=== PATIENT | female | born 1945 | race Caucasian/White ===

== ENCOUNTER 2019-07-20 13:34 | Outpatient (RCR) | payer MEDICARE, SELFPAY | END 2019-08-14 00:01 | LOC: WOUND 13:34 | PROVIDERS: Family Provider Electrodiagnostic Medicine; Visit Provider Surgery | DX: I73.9 Peripheral vascular disease, unspecified (principal); L97.512 Non-pressure chronic ulcer of other part of right foot with fat layer exposed; M79.671 Pain in right foot | CPT/HCPCS: 11044; 73720; A9579 ==

== ENCOUNTER → 2019-09-12 16:40 | Outpatient (BNVA) | payer MEDICARE, SELFPAY | PROVIDERS: Family Provider Electrodiagnostic Medicine; PCP Electrodiagnostic Medicine; Visit Provider Specialist | DX: Z01.818 Encounter for other preprocedural examination (principal); M17.0 Bilateral primary osteoarthritis of knee | CPT/HCPCS: 81003; 87641 ==

== ENCOUNTER 2019-09-18 12:59 | Observation (INO) | payer MEDICARE, SELFPAY ==
[2019-09-13 08:28] VITALS: BMI 26.4
--- NOTE | 2019-09-13 08:42 | ECG_ITS ---
Measurements Intervals [place] Rate: 64 P: 47 FL: 137 QRS: 42 QRSD: 78 T: 57 QT: 402 QTc: 418 SINUS RHYTHM SEPTAL MYOCARDIAL INFARCTION [40+ ms Q WAVE IN V1/V2], OF INDETERMINATE AGE No previous ECG available for comparison Electronically Signed On 09-13-2019 11:37:57 METEOROLOGICAL EQUIPMENT REPAIRER by Kunal Oh M.D. [id number]
[2019-09-13 09:34] LABS: Basophils % 0.3 %; Eosinophils # 0.3 10^3/uL (0.0-0.8); Eosinophils % 3.5 %; Hematocrit 47.2 % (37.0-47.0); Hemoglobin 14.3 g/dL (11.5-15.3); Lymphocytes # 2.1 10^3/uL (0.8-4.8); Lymphocytes % 29.9 %; Mean Corpuscular HGB Conc 30.3 g/dL (30.0-36.0); Mean Corpuscular Hemoglobin 27.4 pg (28.0-34.0); Mean Corpuscular Volume 90.4 fL (81-99); Mean Platelet Volume 10.4 fL (7.4-10.4); Monocytes # 0.5 10^3/uL (0.2-0.9); Monocytes % 7.4 %; Neutrophils # 4.2 10^3/uL (1.8-7.7); Neutrophils % 58.6 %; Nucleated Red Blood Cells % 0 %; Platelet Count 236 10^3/cmm (130-400); Red Blood Count 5.22 10^6/uL (4.1-5.3); White Blood Count 7.1 10^3/uL (4.0-10.0)
--- NOTE | 2019-09-13 09:35 | ANES.PREANES ---
Pre-Anesthetic Assessment Pre-Anesthetic Assessment: Height/Weight: Height 1.7 m Weight 76.657 kg Preop Diagnosis: Severe degenerative osteoarthritis left knee Proposed Procedure: Operation Date: 09/18/19 09:50 Proposed Procedures p Total Knee Arthroplasty 82704 M17.0(Left) - Adelia Breaux MD Social: Social History: No alcohol and No tobacco Exam: Pre-Anes Outpt Exam: alert, oriented x 3, clear to auscultation bilaterally and regular rate & rhythm Airway: Submandibular: WNL Cervical ROM: WNL MP: 2 Dentition: Other (teeth ok) History/ROS: No significant history except as noted Pulmonary: Pulmonary: None reported CV/HEM: CV/HEM: HTN, Murmur and PVD : : None reported Hepatic: Hepatic: None reported GI: GI: GERD (controlled) Metabolic: Metabolic: Hyperlipidemia and Thyroid Musc/skel: Musc/skel: OA/DJD Neuropsych: Neuropsych: None reported Anesthetic Plan: ASA status: III Anesthesia: Anesthesia Evaluation, General and Regional (specify below) (left adductor canal) Risk of > 500 ml blood loss (7ml/kg in children): No PFSH Anesthesia PFSH: Medical History Critical ischemia of foot (Acute) GERD (gastroesophageal reflux disease) (Acute) Hammertoe of right foot (Acute) History of peripheral arterial disease (Acute) Hypertension (Acute) Hyperthyroidism (Acute) Guadarrama's neuroma of right foot (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 (Acute) Osteoarthritis of foot, right (Acute) Primary osteoarthritis of right knee (Acute) PVD (peripheral vascular disease) (Acute) Right foot pain (Acute) Right knee DJD (Acute) Status post angiography of extremity (Acute) Data Anesthesia CBC & Chem 7: 09/13/19 09:20 Other Labs: Laboratory Results - last 48 hr 09/13/19 09:20 WBC 7.1 RBC 5.22 Hgb 14.3 Hct 47.2 H MCV 90.4 MCH 27.4 L MCHC 30.3 RDW 14.0 Plt Count 236 MPV 10.4 Neut % (Auto) 58.6 Lymph % (Auto) 29.9 Craig % (Auto) 7.4 Eos % (Auto) 3.5 Baso % (Auto) 0.3 Neut # (Auto) 4.2 Lymph # (Auto) 2.1 Craig # (Auto) 0.5 Eos # (Auto) 0.3 Baso # (Auto) 0.0 Nucleated RBC % (auto) 0 Nucleated RBCs # 0.0 Cardiac Studies: No Data to Display
--- NOTE | 2019-09-13 09:47 | XR_ITS ---
WS: [id number] Chest 2 views, 09/13/2019 Clinical Data: surgery Comparison: None. Findings: No nodules, masses or effusions are seen. The heart is normal. The pulmonary vascularity is not increased. No pneumonia or pneumothorax is seen. The aortic arch and descending aorta minimally tortuous. XR/XR chest 2V* 70592 Impression: Atherosclerosis. .
[2019-09-13 09:50] LABS: Anion Gap 16.2 (5-19); Blood Urea Nitrogen 18 mg/dL (8-23); Calcium 9.9 mg/dL (8.5-10.5); Carbon Dioxide 27 mmol/L (22-29); Chloride 99 mmol/L (98-107); Glucose 117 mg/dL (74-106); Osmolality Calculated 284 mOsm/kg (285-295); Potassium 4.2 mmol/L (3.5-5.1); Sodium 138 mmol/L (136-145)
[2019-09-18] VITALS (26 sets, daily range): BP systolic 119–227; BP diastolic 76–123; PULSE 65–89; RESP 13–24; TEMP 36.3–36.8; O2SAT 93–100
--- NOTE | 2019-09-18 07:04 | P.HPUD_ITS ---
H&P update H&P Update: DATE OF SURGERY/PROCEDURE: 09/18/19 DATE H&P PERFORMED: H&P UPDATE INFORMATION: H&P completed within last 30 days, No changes to prior documentation and [place] [facility] [place] PREOP DIAGNOSIS: Severe Degenerative Osteoarthritis Left Knee PLANNED PROCEDURE: Operation Date: 09/18/19 08:55 Proposed Procedures Total Knee Arthroplasty 24131 M17.0(Left) - Adelia Breaux MD Full H&P Perinent History: Medical/Surgical History: Medical History (Updated 09/13/19 @ 09:37 by Jairo Trejo MD) Critical ischemia of foot (Acute) GERD (gastroesophageal reflux disease) (Acute) Hammertoe of right foot (Acute) History of peripheral arterial disease (Acute) Hypertension (Acute) Hyperthyroidism (Acute) Guadarrama's neuroma of right foot (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 (Acute) Osteoarthritis of foot, right (Acute) Primary osteoarthritis of right knee (Acute) PVD (peripheral vascular disease) (Acute) Right foot pain (Acute) Right knee DJD (Acute) Status post angiography of extremity (Acute)
[2019-09-18] MEDS: sodium chloride 0.9% 1,000 ML 30 ML IV ×2 (07:30→13:48)
[2019-09-18] MEDS: midazolam 1 mg/mL INJ 5 ML 2 MG IVP (08:03)
--- NOTE | 2019-09-18 08:12 | ANES.PROC ---
Anesthesia Procedures Procedure/Date: 09/18/19 Nerve Block ^: Nerve Block 1: Main Anesthesia: general anesthesia Time Out Performed: Yes Consent: requested by attending/covering physician, from patient, risks and benefits reviewed and patient agrees to proceed Nerve block location: adductor canal (Left) Anesthesia monitors applied: pulse oximetry and oxygen Nerve block position: supine Anesthetic Used: ropivicaine 0.5% (30 ml) and with decadron (4 mg) Ultrasound used to: recognize landmarks and visualize and ID femerol nerve Nerve Stimulator Used?: No Interscalene/Femoral BLK: 4 stimuplex 21 g needle used for position and inplane approach, visualize local anesthetic spread and no vascular puncture identified Injection: neg aspiration of heme Patient Tolerated Procedure: well and no complications Complications: none Additional Comments: chloroprep used to clean
--- NOTE | 2019-09-18 09:06 | PM.OP ---
Operative Report Date of procedure: September 18, 2019 Pre-op Diagnosis: Severe Degenerative Osteoarthritis Left Knee Post-op diagnosis: same Post-op Findings: Severe degenerative osteoarthritis left knee Procedure Done: Left total knee arthroplasty Implants: Triathlon total knee Arthroplasty system by [employer] with a size 4 left press fitted posterior stabilized femur, a size 4 Tritanium tibial component, press-fit, with a size 4 x 11 mm posterior stabilized triathlon X3 insert and a size asymmetric 32 x 10 mm Tritanium patella Specimens removed/disposition: Bone, disposed of Pathology: none sent Surgeon: Adelia Breaux Crotch Piece Baster: [facility] OR technicians Anesthesia: General (Intubated with preoperative adductor canal regional block) Estimated blood loss (mL): 10 Tourniquet time (min): 100 IV fluids (mL): 700 Urine output (mL): 250 Complications: None Findings: Severe degenerative osteoarthritis left knee with large osteophytes and cartilage loss Condition: stable Disposition: observation (After PACU recovery) Brief History: This 74-year-old woman presented with complaints of severe left knee pain which was interfering with her activities of daily living. After conservative measures which were ineffective, the patient wished to proceed with total knee arthroplasty. Risks and complications were discussed with her prior to her surgical intervention. She understood these and wished to proceed. Therefore, she was scheduled for the above procedure. Procedure: The patient was brought to the operating theater, and after undergoing adequate general intubated anesthesia with supplemental regional block, the left lower extremity was prepped with Dura-Prep and draped in usual fashion following placement of a tourniquet high on the leg. The leg was then draped free. Following prepping and draping, the leg was exsanguinated, and the tourniquet was elevated to 250 mmHg for a total tourniquet time of 100 minutes. Prior to elevation of the tourniquet, but following exposure of the site of surgery, a surgical pause was performed. At the time of the surgical pause, we confirmed the site and side of surgery. Additionally, we confirmed the appropriate and timely administration of preoperative antibiotics, Ancef 2 g and transexemic acid 1 g. The availability of equipment was confirmed, and the patient's identity was verbalized as well. Following the surgical pause, an incision was made centering over the patella continuing proximally and distally as necessary to allow access to the knee joint. Dissection continued through skin and soft tissues using a scalpel. Hemostasis was obtained using electrocautery. The skin incision was followed by a median parapatellar arthrotomy. The leg was extended and the patella was everted. Following this, the leg was returned to flexed position. The distal femur was exposed and a drill hole was made in this for placement of the distal femoral jig. The distal femoral jig was set at 5? of valgus. The distal femoral cutting block was then placed in appropriate position, and an fredo wing was used to confirm an appropriate amount of distal femur would be resected. The distal femoral resection was accomplished with 8 mm of bone being resected distally. After the distal femoral resection had been accomplished, the femur was measured and it measured a size 4. Medial lateral dimension also measured a size 4. A size 4 femoral cutting block was placed in position, and we were then able to accomplish the anterior, posterior and chamfer cuts. This jig was then removed and the notch guide was placed in position. With the notch guide in appropriate position, the notch was excised including resection of the anterior and posterior cruciate ligaments. This notch was to allow for the posterior stabilized femoral component. At this point, the femur was prepared and attention was directed to the proximal tibia. The posterior knee retractor was placed along with medial and lateral retractors. Further resection of the menisci was accomplished as we had better visualization. A complete meniscectomy was performed both medially and laterally with care being taken to protect the popliteus. Retractors were then placed so that the proximal tibia was well visualized. A drill hole was then made in the tibia for placement of the intramedullary guide. This guide was placed so that approximately 2 mm of bone would be resected from the deficient medial tibial plateau. The intramedullary guide was utilized supplemented with an extramedullary guide to assure appropriate alignment for the proximal tibial resection. The proximal tibial jig was then evaluated, pinned in position, and the proximal tibial resection was accomplished without difficulty. The jig was removed and the proximal tibia was measured. It measured a size 4. We then attempted a trial reduction with a size 4 and 9 mm insert. This was felt to be too tight, and it was tight in both flexion and extension. Therefore, 2 additional millimeters was resected from the proximal tibia. The proximal tibia continue to measure a size 4. Trial reduction was then once again accomplished with a size 4x9 mm insert followed by the size 4x11 mm posterior stabilized insert. The femoral component was placed in position for the trial reduction, and the knee was placed through range of motion. There was excellent stability with excellent varus-valgus alignment with appropriate patellar tracking. This was felt to be the appropriate size insert. There was full extension and flexion without lift off and the rotation of the tibia was marked. Alignment was checked from the hip to the ankle, and this was noted to be appropriate as well. Attention was then directed to the patella. The patella was measured with a caliper. We resected sufficient patella to leave approximately 14 mm of patella remaining. Measurements of the patella then indicated that a size asymmetric 32 mm x 10 mm was the appropriate patellar size. We then placed the jig to drill for the 3 pegs of the press-fit patella, and these drill holes were made without incident. A trial patella was then placed and the knee was placed through range of motion. The patella was noted to track nicely without evidence of subluxation. The femur was prepared for a press-fit femur by drilling 2 holes for the femoral pegs. All trial components were subsequently removed. The tibial tray was then pinned into position, and we broached the tibia for the stem of the tibial component. Subsequently, 4 drill holes were made for placement of the press-fit tibia. This was accomplished without difficulty. Care was taken to assure appropriate rotation of the tibia as well as appropriate position on the proximal tibia. The tibial tray was completely seated on the proximal tibia. Following broaching, the tibial guide was removed, and all surfaces were copiously irrigated. The surfaces were then dried and a bone plug was placed into the distal femur. Exparel was also injected at this point. The Tritanium tibia was impacted into position. The beaded femur was then impacted into position in a cementless fashion. The tibial insert was placed. The patella was pressed into position with a patellar clamp. The knee was irrigated with 20 mL of Betadine and 500 mL of normal saline, and this was allowed to remain in the knee for 3-4 minutes. The knee was then copiously irrigated and suctioned dry. Attention was then directed to closure. Closure was accomplished with 0 Vicryl in the fascial tissues, 2-0 Monocryl was used in the subcutaneous tissues, and the skin was closed with skin rosalba and Exofin. A sterile dressing was then placed consisting of Telfa, 4 x 4's, ABDs, sterile soft roll, and an Reji wrap. The patient was returned the Recovery Room in a satisfactory condition. X-rays were obtained there. The patient will be discharged to the floor for postoperative rehabilitation and pain management. She'll be under observation status with plans to discharge home with home health.
[2019-09-18] MEDS: ceFAZolin 1,000 mg SDV 1000 MG IRRIGATION ×2 (10:22→10:26)
[2019-09-18] MEDS: vancomycin 1,000 MG SDV 1000 MG XX (10:28)
--- NOTE | 2019-09-18 12:04 | XR_ITS ---
WS: [id number] KNEE LEFT TECHNIQUE: 2 views of the left knee CLINICAL INFORMATION: Status post left total knee arthroplasty COMPARISON: None. FINDINGS: Normal anatomic alignment. Left TKA. Surgical rosalba. Soft tissue edema with subcutaneous emphysema. Patellar prosthesis. Surgical rosalba. XR/XR knee LT 1-2V 99693 IMPRESSION: Normal postoperative changes left TKA.
[2019-09-18] MEDS: labetalol 5 mg/mL SDV 20mL IVP ×3 (12:12→13:10)
[2019-09-18] MEDS: morphine 4 mg/mL SDV 1 mL 2 MG IVP ×2 (12:20→12:25)
[2019-09-18] MEDS: fentaNYL 50 mcg/mL INJ 2mL IVP (12:39)
[2019-09-18] MEDS: CELEcoxib 200 mg Capsule PO (13:44)
[2019-09-18] MEDS: oxyCODONE-APAP 5-325 mg Tablet 1 TAB PO (13:44)
[2019-09-18] MEDS: chlorhexidine gluconate 0.12% Btl 473 mL 30 ML MUCOUS MEM ×3 (14:08→21:08)
--- NOTE | 2019-09-18 14:16 | SUR.PHASEI ---
1317 PT AWAKE ALERT STATES PAIN IS BETTER IN KNEE AND BACK, BP BETTER SEE INTERMITTENT BP MEDS GIVEN PT ALERT TALKATIVE TO NURSE ELSA IN ROOM BP 180/82, 68, 16, 100%
[2019-09-18] MEDS: TRAMadol 50 mg Tablet PO (16:04)
[2019-09-18] MEDS: acetaminophen 500 mg Tablet 1000 MG PO (16:06)
[2019-09-18] MEDS: pantoprazole DR 40 mg Tablet PO (16:06)
[2019-09-18] MEDS: calcium carbonate 500 mg Chew Tablet 1000 MG PO (17:12)
[2019-09-18] MEDS: calcium carbonate 500 mg Chew Tablet 200 MG PO (17:12)
[2019-09-18] MEDS: fluticasone nasal spray 16gm Btl 1 SPRAY INTRANASAL (17:15)
[2019-09-18] MEDS: sennosides-docusate Tablet 2 TAB PO (17:16)
[2019-09-18] MEDS: iron polysaccharide complex 150 mg Capsule PO (17:16)
[2019-09-19] VITALS (10 sets, daily range): BP systolic 128–175; BP diastolic 71–77; PULSE 61–83; RESP 16–20; TEMP 36.4–36.8; O2SAT 93–98
[2019-09-19] MEDS: CELEcoxib 200 mg Capsule PO ×2 (01:39→12:24)
[2019-09-19] MEDS: acetaminophen 500 mg Tablet 1000 MG PO ×2 (01:40→09:50)
[2019-09-19] MEDS: oxyCODONE-APAP 5-325 mg Tablet 1 TAB PO ×3 (01:43→12:29)
[2019-09-19 06:24] LABS: Hemoglobin 10.9 g/dL (11.5-15.3); Lymphocytes # 2.6 10^3/uL (0.8-4.8); Lymphocytes % 23.3 %; Mean Corpuscular HGB Conc 31.1 g/dL (30.0-36.0); Mean Corpuscular Hemoglobin 26.9 pg (28.0-34.0); Mean Corpuscular Volume 86.4 fL (81-99); Mean Platelet Volume 10.4 fL (7.4-10.4); Monocytes % 9.2 %; Neutrophils # 7.5 10^3/uL (1.8-7.7); Neutrophils % 67.2 %; Nucleated Red Blood Cells % 0 %; Platelet Count 207 10^3/cmm (130-400); Red Blood Count 4.05 10^6/uL (4.1-5.3); Red Cell Distribution Width 13.8 % (12.1-15.1); White Blood Count 11.1 10^3/uL (4.0-10.0)
[2019-09-19 06:34] LABS: Anion Gap 15.1 (5-19); Blood Urea Nitrogen 14 mg/dL (8-23); Calcium 9.6 mg/dL (8.5-10.5); Carbon Dioxide 23 mmol/L (22-29); Chloride 100 mmol/L (98-107); Glucose 122 mg/dL (65-115); Osmolality Calculated 276 mOsm/kg (285-295); Potassium 4.1 mmol/L (3.5-5.1); Sodium 134 mmol/L (136-145)
[2019-09-19] MEDS: iron polysaccharide complex 150 mg Capsule PO (07:31)
[2019-09-19] MEDS: aspirin 325 mg EC Tablet PO (09:54)
[2019-09-19] MEDS: multivitamin therapeutic Tablet 1 TAB PO (09:54)
[2019-09-19] MEDS: levothyroxine 150 mcg Tablet 75 MCG PO (09:54)
[2019-09-19] MEDS: pantoprazole DR 40 mg Tablet PO (09:54)
[2019-09-19] MEDS: cholecalciferol (vitamin D3) 1,000 unit Tablet 1000 UNIT PO (09:54)
[2019-09-19] MEDS: lisinopril 10 mg Tablet PO (09:54)
[2019-09-19] MEDS: sennosides-docusate Tablet 2 TAB PO (09:55)
[2019-09-19] MEDS: fluticasone nasal spray 16gm Btl 1 SPRAY INTRANASAL (10:26)
[2019-09-19] MEDS: chlorhexidine gluconate 0.12% Btl 473 mL 30 ML MUCOUS MEM ×2 (10:27→14:36)
[2019-09-19] MEDS: TRAMadol 50 mg Tablet PO ×2 (10:27→16:24)
[2019-09-19] MEDS: calcium carbonate 500 mg Chew Tablet 1000 MG PO (10:53)
--- NOTE | 2019-09-19 13:46 | PM.DCS ---
Discharge Providers Date of Admission: 09/18/19 12:59 Date of Discharge: Date of Discharge: September 19, 2019 Attending Provider at Admission: Adelia Breaux MD Attending Provider at Discharge: Adelia Breaux MD Primary Care Provider: Atilio Roldan DO Diagnoses at Discharge Discharge Diagnosis (1) History of total knee arthroplasty: Status: Acute Problem details: The patient underwent left total knee arthroplasty on September 18, 2019. She had an uneventful postoperative day. She was placed on observation overnight for pain management and rehabilitation. At the end of the first postoperative day, the patient was felt to be stable and safe for discharge to home. She therefore was discharged home with home health. She will follow-up with me in the office as scheduled. Qualifiers: Laterality: left Qualified Code(s): Z96.652 - Presence of left artificial knee joint (2) Primary osteoarthritis of left knee: Status: Acute Problem details: Left total knee arthroplasty on September 18, 2019. Reason for Visit Reason for Visit: Reason For Visit: Primary Osteoarthritis of alma knee Hospital Course Hospital Course: This 74-year-old woman underwent left total knee arthroplasty as a same-day admission yesterday. She was placed on the floor under observation postoperatively. She worked with physical therapy this morning, and her pain was under control. Her dressings were removed. Her wound was benign. There was no evidence of DVT. There was no evidence of infection. The patient was neurologically intact. There was minimal to no swelling. Therefore, the decision was made to discharge the patient home with home health. Discharge Summary: The patient is discharged home with home health. Physical Exam Const: COMMON NORMALS: no apparent distress, average body habitus, oriented x3 and alert GENERAL APPEARANCE: cooperative and comfortable ORIENTATION/CONSCIOUSNESS: Yes awake HENMT: COMMON NORMALS: normocephalic and head/scalp atraumatic HEAD & SCALP: normocephalic and atraumatic Eye: GENERAL EYE: normal appearance of both eyes Chest: COMMONS NORMALS: inspection of chest normal Resp: COMMON NORMALS: normal respiratory effort EFFORT & INSPECTION: Yes able to speak in complete sentences and Yes symmetric chest movement Extremity: LEFT LOWER EXTREMITY: Yes knee joint Left knee: Yes inspection (There is minimal to no swelling. There is no erythema. There is no evidence of infection.), Yes palpation (There is tenderness to palpation over the distal thigh and proximal calf as expected following total knee arthroplasty.), Yes ROM (The patient has been working on CPM with her range of motion.) and Yes neurovascular exam (Neurovascular status is intact.) Neuro: COMMON NORMALS: oriented x3 SENSORIUM/ORIENTATION: Yes alert Psych: COMMON NORMALS: mental status grossly normal APPEARANCE: Yes grossly normal ATTITUDE: Yes calm and Yes engaged ATTENTION/CONCENTRATION: Yes attention grossly intact Skin: COMMON NORMALS: no rashes or lesions noted GENERAL SKIN EXAM: no rashes or lesions noted Urinary Catheter Management^: Herzog: Cath Placed During This Visit: yes, but has since been removed by the nurse Reason for Continuing Indwelling Catheter: Does Not Meet Criteria Urinary Catheter Date of Insertion: 09/18/19 Urinary Catheter Time of Insertion: 09:45 Date Urinary Catheter Removed: 09/19/19 Time Urinary Catheter Discontinued: 08:00 Discharge Data Data Completed and Pending: Completed Studies During Hospitalization Category Date Time Status XR chest 2V* 7104 6 Routine Exams 09/13/19 09:47 Completed XR knee LT 1-2V 7 3560 Stat Exams 09/18/19 12:04 Completed Labs from last 24 hours 09/19/19 09/19/19 05:54 05:54 WBC 11.1 H RBC 4.05 L Hgb 10.9 L Hct 35.0 L MCV 86.4 MCH 26.9 L MCHC 31.1 RDW 13.8 Plt Count 207 MPV 10.4 Neut % (Auto) 67.2 Lymph % (Auto) 23.3 Marion % (Auto) 9.2 Eos % (Auto) 0.0 Baso % (Auto) 0.0 Neut # (Auto) 7.5 Lymph # (Auto) 2.6 Marion # (Auto) 1.0 H Eos # (Auto) 0.0 Baso # (Auto) 0.0 Nucleated RBC % (a uto) 0 Nucleated RBCs # 0.0 Sodium 134 L Potassium 4.1 Chloride 100 Carbon Dioxide 23 Anion Gap 15.1 BUN 14 Creatinine 0.8 Glucose 122 H Calculated Osmolal ity 276 L Calcium 9.6 Vitals: Last Vital Signs Temp 97.9 F 09/19/19 11:03 Pulse 74 09/19/19 11:03 Resp 16 09/19/19 12:29 BP 159/71 09/19/19 11:03 Pulse Ox 98 02/05/20 11:03 Discharge Plan Discharge Patient Disposition: Home Health Service Condition: Stable Prescriptions: New celecoxib 200 mg Capsule 200 mg PO Q12H Qty: 60 RF: 0 acetaminophen 500 mg Tablet 1,000 mg PO Q8H Qty: 60 RF: 0 oxycodone-acetaminophen 5-325 mg Tablet 1 tab PO Q4H PRN (Reason: Severe Pain) Qty: 30 RF: 0 aspirin 325 mg Tablet,Delayed Release (Dr/Ec) 325 mg PO DAILY 30 Days Qty: 30 RF: 0 Continued tramadol 50 mg tablet 50 mg PO Q6H PRN (Reason: Pain) RF: 0 vitamin B complex [B Complex-Vitamin B12] Tablet 1 tab PO ONCE RF: 0 clopidogrel 75 mg tablet 75 mg PO ONCE RF: 0 biotin 1 mg capsule 1 mg PO ONCE RF: 0 calcium carbonate [Antacid (calcium carbonate)] 200 mg calcium (500 mg) tablet,chewable 200 mg PO BID RF: 0 Allergy Relief (cetirizine) 10 mg capsule 10 mg PO DAILY RF: 0 fluticasone propionate [Flonase Allergy Relief] 50 mcg/actuation spray,suspension 1 spray INTRANASAL BID RF: 0 magnesium oxide 500 mg capsule 500 mg PO BID RF: 0 zinc [Chelated Zinc] 50 mg tablet 50 mg PO BID RF: 0 omeprazole magnesium 20 mg tablet,delayed release (DR/EC) 20 mg PO BID RF: 0 estradiol 1 mg tablet 1 mg PO ONCE RF: 0 omega-3 fatty acids [Fish Oil Concentrate] 1,000 mg capsule 1,000 mg PO BID RF: 0 flaxseed oil 1,000 mg capsule 1,000 mg PO BID RF: 0 levothyroxine 75 mcg capsule 75 mcg PO ONCE RF: 0 lysine 1,000 mg tablet 1,000 mg PO ONCE RF: 0 lisinopril 10 mg tablet 10 mg PO DAILY RF: 0 diclofenac sodium [Voltaren] 1 % gel 2 gm TOPICAL QID Qty: 100 RF: 0 methocarbamol 500 mg Tablet 500 mg PO QID PRN (Reason: Muscle Spasm) RF: 0 Held aspirin 81 mg tablet,delayed release (DR/EC) 81 mg PO ONCE RF: 0 Hold Instructions: Resume on 10/19/19. Resume after you have completed 1 month of full dose aspirin acetaminophen [Tylenol Extra Strength] 500 mg tablet 1,000 mg PO Q6H PRN (Reason: Pain) RF: 0 Hold Instructions: Resume on 10/19/19. May resume when you have completed your Percocet meloxicam 15 mg tablet 15 mg PO ONCE RF: 0 Hold Instructions: Resume on 10/19/19. After Celebrex prescription is completed Discharge Orders: Discharge Order (Routine); Ordered 09/19/19 Ordered By: Adelia Breaux Referrals: [facility] ([facility]) [Outside] Adelia Breaux MD [Physician] - 10/02/19 9:00 am (For nurse visit with subsequent visit with me on October 08 at 9:30 AM) Atilio Roldan DO [Primary Care Provider] - 09/24/19 1:00 pm Discharge Diet: Advance as tolerated and Usual diet Discharge Activity: Resume usual activity, Increase activity as tolerated and Use walker/crutches as instructed Patient Instructions: Acetaminophen (By mouth), Oxycodone/Acetaminophen (By mouth), Aspirin (By mouth), Celecoxib (By mouth), Osteoarthritis (DC), Revision Total Joint Arthroplasty (DC) Activity Restrictions/Additional Instructions: Elevate and ice to left lower extremity. Range of motion, gait training, and strengthening with physical therapy. You should receive home health with a home health nurse and physical therapy. Discharge Attestations Time Spent in Discharge Care*: greater than 30 min Status at Discharge: Cognitive status at discharge: cognitively intact, Behavioral status at discharge: cooperative, Functional status at discharge: uses cane/walker Quality Metrics Clinical Quality Measures During this hospital stay, did patient experience: None Coding Level of Care Code Acute Administrative Volunteer for Blanche Fwd Exam Problem Focused Diagnoses History of total knee arthroplasty Z96.652 Laterality: left Primary osteoarthritis of left knee M17.12
[2019-09-19] MEDS: ondansetron 2 mg/ML SDV 2 mL 4 MG IVP (14:37)
== END 2019-09-19 16:30 | disposition home health service (06) ==
LOC: MEDSURG 12:59
PROVIDERS: Admitting Provider Specialist; Family Provider Electrodiagnostic Medicine; PCP Electrodiagnostic Medicine; Visit Provider Specialist
PROC: (CPT 27447; principal; 2019-09-18 08:55)
DX: M17.12 Unilateral primary osteoarthritis, left knee (principal); K21.9 Gastro-esophageal reflux disease without esophagitis; I10 Essential (primary) hypertension; E03.9 Hypothyroidism, unspecified; E78.5 Hyperlipidemia, unspecified
CPT/HCPCS: 27447; 12345; 36415; 51702; 71046; 73221; 73560; 80048; 85025; 93005; 96365; 96374; 96375; 97110; 97116; 97161; 97165; 97530; C1776; C9290; G0378; J0131; J0690; J1100; J2001; J2250; J2270; J2405; J2704; J2795; J3010; J3370; J3490; J7030

== ENCOUNTER → 2019-10-01 08:26 | Outpatient (BNVA) | payer MEDICARE, SELFPAY | PROVIDERS: Family Provider Electrodiagnostic Medicine; PCP Electrodiagnostic Medicine; Visit Provider Podiatrist Foot & Ankle Surgery | DX: M20.41 Other hammer toe(s) (acquired), right foot (principal) | CPT/HCPCS: 73630 ==

== ENCOUNTER → 2019-10-08 09:25 | Outpatient (BNVA) | payer MEDICARE, SELFPAY | PROVIDERS: Family Provider Electrodiagnostic Medicine; PCP Electrodiagnostic Medicine; Visit Provider Specialist | DX: Z48.89 Encounter for other specified surgical aftercare (principal); Z96.652 Presence of left artificial knee joint | CPT/HCPCS: 73560; 73565 ==

== ENCOUNTER 2019-10-15 06:00 | Outpatient (RCR) | payer MEDICARE, SELFPAY | END 2019-11-13 23:59 | disposition home or self-care (01) | LOC: SPT 06:00 | PROVIDERS: Family Provider Electrodiagnostic Medicine; PCP Electrodiagnostic Medicine; Referring Provider Specialist; Visit Provider Specialist | DX: Z47.1 Aftercare following joint replacement surgery (principal); Z96.652 Presence of left artificial knee joint | CPT/HCPCS: 97110; 97162 ==

== ENCOUNTER 2019-11-14 06:00 | Outpatient (RCR) | payer MEDICARE, SELFPAY | END 2019-12-13 23:59 | disposition home or self-care (01) | LOC: SPT 06:00 | PROVIDERS: Family Provider Electrodiagnostic Medicine; PCP Electrodiagnostic Medicine; Referring Provider Specialist; Visit Provider Specialist | DX: Z47.1 Aftercare following joint replacement surgery (principal); Z96.652 Presence of left artificial knee joint | CPT/HCPCS: 97110 ==

== ENCOUNTER → 2019-11-19 09:21 | Outpatient (BNVA) | payer MEDICARE, SELFPAY | PROVIDERS: Family Provider Electrodiagnostic Medicine; PCP Electrodiagnostic Medicine; Visit Provider Specialist | DX: Z48.89 Encounter for other specified surgical aftercare (principal); Z96.652 Presence of left artificial knee joint | CPT/HCPCS: 73560; 73565 ==

== ENCOUNTER → 2020-01-31 11:23 | Outpatient (BNVA) | payer MEDICARE, SELFPAY | PROVIDERS: Family Provider Electrodiagnostic Medicine; PCP Electrodiagnostic Medicine; Visit Provider Specialist | DX: M17.11 Unilateral primary osteoarthritis, right knee (principal); M25.661 Stiffness of right knee, not elsewhere classified | CPT/HCPCS: 73560; 73565 ==

== ENCOUNTER 2020-02-11 06:00 | Outpatient (RCR) | payer MEDICARE, SELFPAY | END 2020-02-12 23:59 | disposition home or self-care (01) | LOC: SPT 06:00 | PROVIDERS: PCP Electrodiagnostic Medicine; Referring Provider Specialist; Visit Provider Specialist | DX: M17.0 Bilateral primary osteoarthritis of knee (principal) | CPT/HCPCS: 97110; 97161 ==

== ENCOUNTER 2020-02-13 06:00 | Outpatient (RCR) | payer MEDICARE, SELFPAY | END 2020-03-14 23:59 | disposition home or self-care (01) | LOC: SPT 06:00 | PROVIDERS: PCP Electrodiagnostic Medicine; Referring Provider Specialist; Visit Provider Specialist | DX: M17.0 Bilateral primary osteoarthritis of knee (principal) | CPT/HCPCS: 97110; 97150 ==

== ENCOUNTER → 2020-03-10 09:49 | Outpatient (BNVA) | payer MEDICARE, SELFPAY | PROVIDERS: PCP Electrodiagnostic Medicine; Visit Provider Specialist | DX: Z48.89 Encounter for other specified surgical aftercare (principal); Z96.652 Presence of left artificial knee joint | CPT/HCPCS: 73560; 73565 ==

== ENCOUNTER 2020-03-15 06:00 | Outpatient (RCR) | payer MEDICARE, SELFPAY | END 2020-04-14 23:59 | disposition home or self-care (01) | LOC: SPT 06:00 | PROVIDERS: PCP Electrodiagnostic Medicine; Referring Provider Specialist; Visit Provider Specialist | DX: M17.11 Unilateral primary osteoarthritis, right knee (principal) | CPT/HCPCS: 97110 ==

== ENCOUNTER → 2020-05-16 12:01 | Outpatient (BNVA) | payer MEDICARE, SELFPAY | PROVIDERS: PCP Electrodiagnostic Medicine; Visit Provider Specialist | DX: M17.11 Unilateral primary osteoarthritis, right knee (principal) | CPT/HCPCS: 87635 ==

== ENCOUNTER 2020-05-20 13:11 | Observation (INO) | payer MEDICARE, SELFPAY ==
[2020-05-14 10:29] VITALS: BMI 27.3
[2020-05-14 10:59] LABS: Add Urine Microscopic? NO
--- NOTE | 2020-05-14 10:59 | ANES.PREANE2 ---
Pre-Anesthetic Assessment Pre-Anesthetic Assessment: Height/Weight: Height 1.7 m Weight 79.379 kg Preop Diagnosis: Osteoarthritis right knee Proposed Procedure: Operation Date: 05/20/20 14:00 Proposed Procedures p Total Knee Arthroplasty 49835 M17.11(Right) - Adelia Breaux MD Familial anesthetic complications: NOne Social: Social History: No alcohol and No tobacco Exam: Pre-Anes Outpt Exam: alert, oriented x 3, clear to auscultation bilaterally and regular rate & rhythm Airway: Cervical ROM: WNL MP: 1 Dentition: Other (bridges) CV/HEM: CV/HEM: HTN and PVD GI: GI: GERD Metabolic: Metabolic: Thyroid Musc/skel: Musc/skel: OA/DJD Neuropsych: Neuropsych: None reported Anesthetic Plan: ASA status: 2 Anesthesia: General and Regional (specify below) Risk of > 500 ml blood loss (7ml/kg in children): No PFSH Anesthesia PFSH: Medical History Arthritis of knee, right Critical ischemia of foot GERD (gastroesophageal reflux disease) Hammertoe of right foot History of peripheral arterial disease Hypertension Hyperthyroidism 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 Primary osteoarthritis of right knee PVD (peripheral vascular disease) Right foot pain Right knee DJD Status post angiography of extremity Social History Smoking and tobacco status: never smoked Alcohol intake: never Current occupation: one step x 2 into house Data Anesthesia CBC & Chem 7: 05/14/20 10:45 05/14/20 10:45 Cardiac Studies: No Data to Display
[2020-05-14 11:01] LABS: Basophils % 0.4 %; Eosinophils # 0.2 10^3/uL (0.0-0.8); Eosinophils % 2.5 %; Hematocrit 45.8 % (37.0-47.0); Hemoglobin 14.1 g/dL (11.5-15.3); Lymphocytes # 2.3 10^3/uL (0.8-4.8); Lymphocytes % 33.4 %; Mean Corpuscular HGB Conc 30.8 g/dL (30.0-36.0); Mean Corpuscular Hemoglobin 27.2 pg (28.0-34.0); Mean Corpuscular Volume 88.2 fL (81-99); Mean Platelet Volume 10.6 fL (7.4-10.4); Monocytes # 0.6 10^3/uL (0.2-0.9); Monocytes % 8.5 %; Neutrophils # 3.73 10^3/uL (1.8-7.7); Neutrophils % 54.9 %; Nucleated Red Blood Cells % 0 %; Platelet Count 197 10^3/cmm (130-400); Red Blood Count 5.19 10^6/uL (4.1-5.3); Red Cell Distribution Width 13.2 % (12.1-15.1); White Blood Count 6.8 10^3/uL (4.0-10.0)
[2020-05-14 11:09] LABS: Bilirubin Urine Neg (Negative); Blood Urine Neg (Negative); Glucose Urine UA Norm (Normal); Ketones Urine Negative (Negative); Leukocyte Esterase Urine Negative (Negative); Nitrate Urine Negative (Negative); Protein Urine Neg (Negative); Urine Appearance Clear (CLEAR); Urine Color Yellow (Yellow); Urobilinogen Urine Neg (Negative); pH Urine 6 (5-7)
[2020-05-14 11:25] LABS: Alanine Aminotransferase 23 U/L (0-33); Albumin Level 4.3 g/dL (3.5-5.2); Alkaline Phosphatase 50 IU/L (35-105); Anion Gap 13.6 (5-19); Aspartate Amino Transferase 23 U/L (0-32); Blood Urea Nitrogen 20 mg/dL (8-23); Calcium 9.5 mg/dL (8.5-10.5); Carbon Dioxide 24 mmol/L (22-29); Chloride 104 mmol/L (98-107); Globulin 2.6 g/dL (1.3-4.6); Glucose 121 mg/dL (65-115); Osmolality Calculated 288 mOsm/kg (285-295); Potassium 4.6 mmol/L (3.5-5.1); Sodium 137 mmol/L (136-145); Total Bilirubin 0.3 mg/dL (0.15-1.2); Total Protein 6.9 g/dL (6.6-8.7)
[2020-05-20] VITALS (17 sets, daily range): BP systolic 132–187; BP diastolic 76–106; PULSE 72–102; RESP 16–39; TEMP 36.2–36.8; O2SAT 90–100
[2020-05-20] MEDS: sodium chloride 0.9% 1,000 ML 30 ML IV (09:32)
[2020-05-20] MEDS: ketorolac 30 mg/mL INJ IVP (09:39)
--- NOTE | 2020-05-20 09:45 | P.ANESUD_ITS ---
Pre-Anesthetic Update Pre-Anesthetic Assessment: Date of Surgery/Procedure: 05/20/20 Preop Corrie gnosis: Osteoarthritis right knee Proposed Procedure: Operation Date: 05/20/20 10:50 Proposed Procedures p Total Knee Arthroplasty 18335 M17.11(Right) - Adelia Breaux MD Any changes to Pre-Anesthetic Assessment?: No Last Intake: Intake Last Liquid Date 05/19/20 Last Liquid Time 22:30 Last Solid Date 05/19/20 Last Solid Time 19:00 Vitals: Temperature 97.1 F L 05/20/20 13:40 Temperature Source Temporal Artery S can 05/20/20 13:40 Pulse Rate 85 05/20/20 13:40 Pulse Rhythm 05/20/20 13:54 Pulse Strength 2+ Slightly Dimin ished 05/20/20 13:54 Respiratory Rate 18 05/20/20 14:13 Respiratory Effort Non-Labored 05/20/20 14:13 Respiratory Depth Normal 05/20/20 14:13 Respiratory Patter n 05/20/20 14:13 Blood Pressure 176/86 05/20/20 13:40 Blood Pressure Kathleen n 116 05/20/20 13:40 Pulse Oximetry 93 05/20/20 14:13 Oxygen Delivery Me thod 05/20/20 13:54 Oxygen Flow Rate 3 05/20/20 13:40 Exam: Pre-Anes Outpt Exam: alert, oriented x 3, clear to auscultation bilaterally and regular rate & rhythm Cardiac Studies: No Data to Display
[2020-05-20] MEDS: midazolam 1 mg/mL INJ 5 ML 5 MG IVP (10:04)
--- NOTE | 2020-05-20 10:05 | ANES.PROC ---
Anesthesia Procedures Procedure/Date: 05/20/20 Nerve Block ^: Nerve Block 1: Main Anesthesia: general anesthesia Time Out Performed: Yes Consent: requested by attending/covering physician, from patient, risks and benefits reviewed and patient agrees to proceed Nerve block location: adductor canal (R) Anesthesia monitors applied: pulse oximetry, EKG, BP cuff and oxygen Nerve block position: supine Anesthetic Used: ropivicaine 0.5% and with decadron (4 mg) Amount of anesthesia used (mL): 30 Ultrasound used to: recognize landmarks Nerve Stimulator Used?: No Interscalene/Femoral BLK: 4 stimuplex 21 g needle used for position and inplane approach, visualize local anesthetic spread and no vascular puncture identified Injection: neg aspiration of heme Patient Tolerated Procedure: well and no complications Complications: none
--- NOTE | 2020-05-20 10:19 | W.PM.OPSUD ---
Surgery/Procedure H&P Update DATE OF PROCEDURE: May 20, 2020 DATE H&P PERFORMED: 05/05/20 H&P UPDATE INFORMATION: I have reviewed H&P completed within last 30 days, I have examined patient prior to procedure and Changes to prior documentation as noted here CHANGES TO PREVIOUS DOCUMENTATION: Patient had recent sinus infection, had completed antibiotics, and symptoms have resolved. PREOP DIAGNOSIS: Osteoarthritis right knee PLANNED PROCEDURE: Operation Date: 05/20/20 10:50 Proposed Procedures p Total Knee Arthroplasty 98190 M17.11(Right) - Adelia Breaux MD
[2020-05-20] MEDS: ceFAZolin 1,000 mg SDV 1000 MG IRRIGATION ×2 (11:25)
[2020-05-20] MEDS: vancomycin 1,000 MG SDV 1000 MG XX (11:28)
--- NOTE | 2020-05-20 13:10 | XR_ITS ---
WS: [id number] XR knee RT 3V* [id number] REASON FOR EXAM: Status post total knee arthroplasty FINDINGS: The complements of the right total knee arthroplasty are in proper position and alignment. No significant bony abnormality is identified. Expected postoperative soft tissue changes. XR/XR knee RT 3V* [id number] IMPRESSION: Properly positioned total right knee arthroplasty.
--- NOTE | 2020-05-20 13:11 | PM.OP ---
Operative Report Date of procedure: May 20, 2020 Pre-op Diagnosis: Osteoarthritis right knee Post-op diagnosis: same Post-op Findings: Severe degenerative osteoarthritis right knee Procedure Done: Right total knee arthroplasty Implants: Triathlon total knee Arthroplasty system by [employer] with a size 4 right press fitted posterior stabilized femur, a size 3 Tritanium tibial component, press-fit, with a size 3 x 9 mm posterior stabilized triathlon X3 insert and a size asymmetric 32 x 10 mm Tritanium patella Specimens removed/disposition: Bone, disposed of Pathology: none sent Surgeon: Adelia Breaux Refrigeration Engineer: [facility] OR technicians Anesthesia: General (Intubated with supplemental regional block, ASA 2) Estimated blood loss (mL): 25 Tourniquet time (min): 105 Tourniquet time: 250 mmHg IV fluids (mL): 2,000 Urine output (mL): 350 Complications: None Condition: stable Disposition: PACU (To floor for postoperative rehabilitation and pain management.) Brief History: This 75-year-old woman presented with complaints of severe right knee pain which was interfering with her activities of daily living. After conservative measures which were ineffective, the patient wished to proceed with total knee arthroplasty. Risks and complications were discussed with her prior to her surgical intervention. She understood these and wished to proceed. Therefore, she was scheduled for the above procedure. Earlier this year, she had a left total knee which she has recovered from nicely. Procedure: The patient was brought to the operating theater, and after undergoing adequate general intubated anesthesia with supplemental regional block, ASA2, the right lower extremity was prepped with Dura-Prep and draped in usual fashion following placement of a tourniquet high on the leg. The leg was then draped free. Following prepping and draping, the leg was exsanguinated, and the tourniquet was elevated to 250 mmHg for a total tourniquet time of 105 minutes. Prior to elevation of the tourniquet, but following exposure of the site of surgery, a surgical pause was performed. At the time of the surgical pause, we confirmed the site and side of surgery. Additionally, we confirmed the appropriate and timely administration of preoperative antibiotics, Ancef 2 g and transexemic acid 1 g. The availability of equipment was confirmed, and the patient's identity was verbalized as well. Following the surgical pause, an incision was made centering over the patella continuing proximally and distally as necessary to allow access to the knee joint. Dissection continued through skin and soft tissues using a scalpel. Hemostasis was obtained using electrocautery. The skin incision was followed by a median parapatellar arthrotomy. The leg was extended and the patella was everted. Following this, the leg was returned to flexed position. The distal femur was exposed and a drill hole was made in this for placement of the distal femoral jig. The distal femoral jig was set at 5? of valgus. The distal femoral cutting block was then placed in appropriate position, and an fredo wing was used to confirm an appropriate amount of distal femur would be resected. The distal femoral resection was accomplished with 8 mm of bone being resected distally. After the distal femoral resection had been accomplished, the femur was measured and it measured a size 4. Medial lateral dimension also measured a size 4. A size 4 femoral cutting block was placed in position, and we were then able to accomplish the anterior, posterior and chamfer cuts. This jig was then removed and the notch guide was placed in position. With the notch guide in appropriate position, the notch was excised including resection of the anterior and posterior cruciate ligaments. This notch was to allow for the posterior stabilized femoral component. At this point, the femur was prepared and attention was directed to the proximal tibia. The posterior knee retractor was placed along with medial and lateral retractors. Further resection of the menisci was accomplished as we had better visualization. A complete meniscectomy was performed both medially and laterally with care being taken to protect the popliteus. Retractors were then placed so that the proximal tibia was well visualized. A drill hole was then made in the tibia for placement of the intramedullary guide. This guide was placed so that approximately 2 mm of bone would be resected from the deficient medial tibial plateau. The intramedullary guide was utilized supplemented with an extramedullary guide to assure appropriate alignment for the proximal tibial resection. The proximal tibial jig was then evaluated, pinned in position, and the proximal tibial resection was accomplished without difficulty. The jig was removed and the proximal tibia was measured. It measured a size 3. We then attempted a trial reduction with a size 3 and 9 mm insert. This was felt to be too tight, and it was tight in both flexion and extension. Therefore, 2 additional millimeters was resected from the proximal tibia. The proximal tibia continued to measure a size 3. Trial reduction was then once again accomplished with a size 3 x 9 mm posterior stabilized insert. The femoral component was placed in position for the trial reduction, and the knee was placed through range of motion. There was excellent stability with excellent varus-valgus alignment with appropriate patellar tracking. This was felt to be the appropriate size insert. There was full extension and flexion without lift off and the rotation of the tibia was marked. Alignment was checked from the hip to the ankle, and this was noted to be appropriate as well. Attention was then directed to the patella. The patella was measured with a caliper. We resected sufficient patella to leave approximately 14 mm of patella remaining. Measurements of the patella then indicated that a size asymmetric 32 mm x 10 mm was the appropriate patellar size. We then placed the jig to drill for the 3 pegs of the press-fit patella, and these drill holes were made without incident. A trial patella was then placed, and the knee was placed through range of motion. The patella was noted to track nicely without evidence of subluxation. The femur was prepared for a press-fit femur by drilling 2 holes for the femoral pegs. All trial components were subsequently removed. The tibial tray was then pinned into position, and we broached the tibia for the stem of the tibial component. Subsequently, 4 drill holes were made for placement of the press-fit tibia. This was accomplished without difficulty. Care was taken to assure appropriate rotation of the tibia as well as appropriate position on the proximal tibia. The tibial tray was completely seated on the proximal tibia. Following broaching, the tibial guide was removed, and all surfaces were copiously irrigated. The surfaces were then dried and a bone plug was placed into the distal femur. Exparel was also injected at this point. The Tritanium tibia was impacted into position. The beaded femur was then impacted into position in a cementless fashion. The tibial insert was placed. The patella was pressed into position with a patellar clamp. The knee was irrigated with 20 mL of Betadine and 500 mL of normal saline, and this was allowed to remain in the knee for 3-4 minutes. The knee was then copiously irrigated and suctioned dry. Attention was then directed to closure. Closure was accomplished with 0 Vicryl in the fascial tissues, 2-0 Monocryl was used in the subcutaneous tissues, and the skin was closed with skin rosalba and Exofin. A sterile dressing was then placed consisting of Telfa, 4 x 4's, ABDs, sterile soft roll, and an Reji wrap. The patient was returned the Recovery Room in a satisfactory condition. X-rays were obtained there. The patient will be discharged to the floor for postoperative rehabilitation and pain management. She'll be under observation status with plans to discharge home with home health. Associated Problem List Diagnoses (1) Primary osteoarthritis of right knee:
--- NOTE | 2020-05-20 13:26 | SUR.PHASEI ---
3835 PATIENT TO PACU FROM OR. NO DISTRESS. DRESSING TO RIGHT KNEE, CDI. CARMEN CATH IN PLACE, SECURED TO LEFT LEG.
--- NOTE | 2020-05-20 13:40 | PM.PACU ---
PACU note Post-Anesthesia Exam: awake and vital signs stable Disposition: admitted
--- NOTE | 2020-05-20 13:56 | SUR.PHASEI ---
3043 PATIENT TO MED SURG. DENIES PAIN. TOLERATING ICE CHIPS. DRESSING TO RIGHT KNEE, CDI. PULSE PRESENT. FIRST ICE IN PLACE.
[2020-05-20] MEDS: oxyCODONE 5 mg IR Tab/Cap PO ×3 (14:13→22:34)
[2020-05-20] MEDS: metoprolol succinate ER (24 HR) 50 mg Tablet PO (15:11)
[2020-05-20] MEDS: chlorhexidine gluconate 0.12% Btl 473 mL 30 ML MUCOUS MEM ×2 (17:56→21:43)
[2020-05-20] MEDS: iron polysaccharide complex 150 mg Capsule PO (17:57)
[2020-05-20] MEDS: methocarbamol 500 mg Tablet PO (17:57)
[2020-05-20] MEDS: calcium carbonate 500 mg Chew Tablet 1000 MG PO (17:57)
[2020-05-20] MEDS: sennosides-docusate Tablet 2 TAB PO (17:57)
--- NOTE | 2020-05-20 18:56 | PC.NURSE ---
BLOOD PRESSURE PATIENT'S BLOOD PRESSURE HAS BEEN ELEVATED SINCE ARRIVAL FROM OR. DR. RAY NOTIFIED. A ONE TIME ORDER OF PATIENT'S HOME DOSE OF METOPROLOL GIVEN. BLOOD PRESSURE STILL ELEVATED AT THIS TIME. PATIENT ASYMPTOMATIC. DR. RAY NOTIFIED. NO FURTHER ORDERS GIVEN.
[2020-05-21] VITALS (8 sets, daily range): BP systolic 135–151; BP diastolic 69–76; PULSE 65–86; RESP 16–20; TEMP 36.5–37.1; O2SAT 94–98
[2020-05-21] MEDS: methocarbamol 500 mg Tablet PO (01:44)
--- NOTE | 2020-05-21 03:00 | ANE.PACU2 ---
Inpatient post-anesthesia follow up: Airway intact: Yes Vital signs: Temperature 98.3 F Pulse Rate 79 Respiratory Rate 18 Blood Pressure 148/70 Pulse Oximetry 96 Oxygen Delivery Me thod Room Air Oxygen Flow Rate 3 Fraction of Inspir ed Oxygen Hydration adequate: Yes Nausea and vomiting: No Pain level: 1 Mental status: Baseline Additional Comments: Block working well, some pain with movement. Just took muscle relaxant and oxycodone
[2020-05-21 03:34] LABS: Basophils % 0.1 %; Hematocrit 40.7 % (37.0-47.0); Hemoglobin 12.6 g/dL (11.5-15.3); Lymphocytes # 1.8 10^3/uL (0.8-4.8); Lymphocytes % 12.6 %; Mean Corpuscular Hemoglobin 27.2 pg (28.0-34.0); Mean Corpuscular Volume 87.9 fL (81-99); Mean Platelet Volume 10.7 fL (7.4-10.4); Monocytes # 1.1 10^3/uL (0.2-0.9); Monocytes % 7.3 %; Neutrophils # 11.58 10^3/uL (1.8-7.7); Neutrophils % 79.6 %; Nucleated Red Blood Cells % 0 %; Platelet Count 203 10^3/cmm (130-400); Red Blood Count 4.63 10^6/uL (4.1-5.3); Red Cell Distribution Width 13.2 % (12.1-15.1); White Blood Count 14.6 10^3/uL (4.0-10.0)
[2020-05-21 03:55] LABS: Anion Gap 15.4 (5-19); Blood Urea Nitrogen 13 mg/dL (8-23); Calcium 9.2 mg/dL (8.5-10.5); Carbon Dioxide 23 mmol/L (22-29); Chloride 101 mmol/L (98-107); Glucose 126 mg/dL (65-115); Osmolality Calculated 282 mOsm/kg (285-295); Potassium 4.4 mmol/L (3.5-5.1); Sodium 135 mmol/L (136-145)
[2020-05-21] MEDS: oxyCODONE 5 mg IR Tab/Cap PO ×2 (07:46→12:16)
[2020-05-21] MEDS: iron polysaccharide complex 150 mg Capsule PO (07:47)
[2020-05-21] MEDS: ondansetron 2 mg/ML SDV 2 mL 4 MG IVP (08:13)
[2020-05-21] MEDS: levothyroxine 150 mcg Tablet 75 MCG PO (09:44)
[2020-05-21] MEDS: sennosides-docusate Tablet 2 TAB PO (09:44)
[2020-05-21] MEDS: ascorbic acid 500 mg Tablet 1500 MG PO (09:44)
[2020-05-21] MEDS: meloxicam 7.5 mg tablet 15 MG PO (09:44)
[2020-05-21] MEDS: metoprolol succinate ER (24 HR) 50 mg Tablet PO (09:45)
[2020-05-21] MEDS: cyanocobalamin 1,000 mcg Tablet 1000 MCG PO (09:45)
[2020-05-21] MEDS: estradiol 1 mg Tablet PO (09:45)
[2020-05-21] MEDS: multivitamin therapeutic Tablet 1 TAB PO (09:45)
[2020-05-21] MEDS: calcium carbonate 500 mg Chew Tablet 1000 MG PO (09:45)
[2020-05-21] MEDS: cholecalciferol (vitamin D3) 1,000 unit Tablet 1000 UNIT PO (09:45)
[2020-05-21] MEDS: pantoprazole DR 40 mg Tablet PO (09:45)
[2020-05-21] MEDS: aspirin 325 mg EC Tablet PO (09:45)
[2020-05-21] MEDS: chlorhexidine gluconate 0.12% Btl 473 mL 30 ML MUCOUS MEM ×2 (09:46→12:17)
--- NOTE | 2020-05-21 13:40 | PM.DCS ---
Discharge Providers Date of Admission: 05/20/20 13:11 Date of Discharge: May 21, 2020 Attending Provider at Admission: Adelia Breaux MD Attending Provider at Discharge: Adelia Breaux MD Primary Care Provider: Atilio Roldan DO Diagnoses at Discharge Discharge Diagnosis (1) Primary osteoarthritis of right knee: Status: Acute Reason for Visit Reason for Visit: Right total Knee Arthroplasty Hospital Course Hospital Course: Patient was admitted on May 20 for same-day right total knee arthroplasty. She came in as an observation patient following the procedure which was uneventful. Initially, the night following surgery, the patient did have elevated blood pressure, however, this was not significantly out of line for her previous blood pressure readings. She also noted that she had just started her metoprolol. She was given her dose for that day. Over the evening and into the leak hunter, the blood pressure normalized to being normal for the patient. She had no other complaints. She worked with physical therapy. When she was seen in the early afternoon of the first postoperative day, patient stated she was ready to discharge for home. She had all needed DME's, as she previously had her left total knee replaced earlier this year. Questions were answered and she was discharged home. Discharge Summary: Patient was brought in as observation following right total knee arthroplasty. She is now ready for discharge home with home health. Physical Exam Const: COMMON NORMALS: no acute distress, average body habitus, patient oriented x3 and alert GENERAL APPEARANCE: cooperative and comfortable ORIENTATION/CONSCIOUSNESS: Yes awake HENMT: COMMON NORMALS: normocephalic and atraumatic HEAD & SCALP: normocephalic and atraumatic Eye: GENERAL EYE: appearance normal, both eyes and all related structures Chest: COMMONS NORMALS: normal inspection of the chest Resp: COMMON NORMALS: normal respiratory effort EFFORT & INSPECTION: Yes able to speak in complete sentences and Yes symmetric chest movement Extremity: RIGHT LOWER EXTREMITY: Yes knee joint (Patient's total knee dressing is removed. The incision is benign. There is minimal bruising. There is minimal swelling. There is no drainage.) Right knee: Yes inspection (There is no drainage, and rosalba are intact.), Yes palpation (Minimal tenderness to palpation.), Yes ROM (Not evaluated.) and Yes neurovascular exam (Intact distal to the fracture site with no evidence of DVT.) Neuro: COMMON NORMALS: patient oriented x3 SENSORIUM/ORIENTATION: Yes alert Psych: COMMON NORMALS: mental status grossly normal APPEARANCE: Yes grossly normal ATTITUDE: Yes calm and Yes engaged ATTENTION/CONCENTRATION: Yes attention grossly intact Skin: COMMON NORMALS: no rashes or lesions noted GENERAL SKIN EXAM: no rashes or lesions noted Urinary Catheter Management^: F: Cath Placed During This Visit: yes, but has since been removed by the nurse Reason for Continuing Indwelling Catheter: Decision to DC Catheter Urinary Catheter Date of Insertion: 05/20/20 Urinary Catheter Time of Insertion: 11:00 Date Urinary Catheter Removed: 05/21/20 Time Urinary Catheter Discontinued: 06:00 Discharge Data Data Completed and Pending: Completed Studies During Hospitalization Category Date Time Status XR knee RT 3V* [id number] Urgent Exams 05/20/20 13:10 Completed Pending at discharge Category Date Time Status Complete Blood Co unt w/Auto AM LABS Lab 05/22/20 04:00 Ordered Complete Blood Co unt w/Auto AM LABS Lab 05/23/20 04:00 Ordered Labs from last 24 hours 05/21/20 05/21/20 03:02 03:02 WBC 14.6 H RBC 4.63 Hgb 12.6 Hct 40.7 MCV 87.9 MCH 27.2 L MCHC 31.0 RDW 13.2 Plt Count 203 MPV 10.7 H Neut % (Auto) 79.6 Lymph % (Auto) 12.6 [place] % (Auto) 7.3 Eos % (Auto) 0.0 Baso % (Auto) 0.1 Neut # (Auto) 11.58 H Lymph # (Auto) 1.8 [place] # (Auto) 1.1 H Eos # (Auto) 0.0 Baso # (Auto) 0.0 Nucleated RBC % (a uto) 0 Nucleated RBCs # 0.0 Sodium 135 L Potassium 4.4 Chloride 101 Carbon Dioxide 23 Anion Gap 15.4 BUN 13 Creatinine 0.9 GFR Calculation Not Reportable Glucose 126 H Calculated Osmolal ity 282 L Calcium 9.2 Vitals: Last Vital Signs Temp 98.2 F 05/21/20 11:25 Pulse 75 05/21/20 11:25 Resp 16 05/21/20 12:16 BP 151/69 05/21/20 11:25 Pulse Ox 94 05/21/20 12:16 Discharge Plan Discharge Patient Disposition: Home Health Service Condition: Stable Prescriptions: New oxycodone 5 mg Tablet 5 mg PO Q4H PRN (Reason: Moderate Pain) 7 Days Qty: 30 RF: 0 aspirin 325 mg Tablet,Delayed Release (Dr/Ec) 325 mg PO DAILY 30 Days Qty: 0 RF: 0 Continued multivitamin Tablet 1 tab PO DAILY RF: 0 tramadol 50 mg tablet 50 mg PO Q6H PRN (Reason: Pain) Qty: 60 RF: 0 diclofenac sodium [Voltaren] 1 % gel 2 gm TOPICAL QID Qty: 100 RF: 5 biotin 1 mg capsule 1 mg PO ONCE RF: 0 Allergy Relief (cetirizine) 10 mg capsule 10 mg PO DAILY RF: 0 fluticasone propionate [Flonase Allergy Relief] 50 mcg/actuation spray,suspension 1 spray INTRANASAL BID RF: 0 acetaminophen [Tylenol Extra Strength] 500 mg tablet 1,000 mg PO Q6H PRN (Reason: Pain) RF: 0 Hold Instructions: Resume on 10/19/19. May resume when you have completed your Percocet zinc [Chelated Zinc] 50 mg tablet 50 mg PO DAILY RF: 0 omeprazole magnesium 20 mg tablet,delayed release (DR/EC) 20 mg PO DAILY RF: 0 estradiol 1 mg tablet 1 mg PO ONCE RF: 0 flaxseed oil 1,000 mg capsule 1,000 mg PO BID RF: 0 levothyroxine 75 mcg capsule 75 mcg PO ONCE RF: 0 lysine 1,000 mg tablet 1,000 mg PO BID RF: 0 meloxicam 15 mg tablet 15 mg PO ONCE RF: 0 Hold Instructions: Resume on 10/19/19. After Celebrex prescription is completed methocarbamol 500 mg Tablet 500 mg PO QID PRN (Reason: Muscle Spasm) RF: 0 metoprolol succinate 50 mg Tablet Extended Release 24 Hr 50 mg PO DAILY RF: 0 cyanocobalamin (vitamin B-12) [Vitamin B-12] 1,000 mcg Tablet 1,000 mcg PO DAILY RF: 0 magnesium 200 mg Tablet 400 mg PO BID RF: 0 Calcium 600 + D(3) 600 mg calcium- 200 unit Capsule 1 cap PO DAILY RF: 0 ascorbic acid (vitamin C) [Vitamin C] 1,000 mg Tablet 1,500 mg PO DAILY RF: 0 vitamin E 400 unit Capsule 400 unit PO DAILY RF: 0 cholecalciferol (vitamin D3) [Vitamin D3] 10 mcg (400 unit) Capsule 400 unit PO DAILY RF: 0 Ross's Yeast 680 mg Tablet 1,000 mg PO BID RF: 0 Held aspirin 81 mg tablet,delayed release (DR/EC) 81 mg PO ONCE RF: 0 Hold Instructions: Resume on 10/19/19. Resume after you have completed 1 month of full dose aspirin Discharge Orders: Discharge Order (Routine); Ordered 05/21/20 Ordered By: Adelia Breaux Referrals: [facility] [place] [facility] ([facility]) [Outside] Adelia Breaux MD [Physician] - 06/04/20 3:45 pm Discharge Diet: Advance as tolerated Discharge Activity: Increase activity as tolerated, Use walker/crutches as instructed and As per PT/OT instructions Activity Restrictions/Additional Instructions: Weightbearing as tolerated. Change dressing as needed. Range of motion as tolerated. Work with home physical therapy. Discharge Attestations Time Spent in Discharge Care*: greater than 30 min Specific Discharge Activities: Specific discharge activities: educating patient, documenting/other paperwork and evaluating patient/reviewing data Status at Discharge: Cognitive status at discharge: cognitively intact, Behavioral status at discharge: cooperative, Quality Metrics Clinical Quality Measures During this hospital stay, did patient experience: None Coding Level of Care Code Acute Graduate Research Assistant for Blanche Fwd Exam Comprehensive Diagnoses Primary osteoarthritis of right knee M17.11
== END 2020-05-21 15:34 | disposition home health service (06) ==
LOC: MEDSURG 13:11
PROVIDERS: Admitting Provider Specialist; PCP Electrodiagnostic Medicine; Visit Provider Specialist
PROC: (CPT 27447; principal; 2020-05-20 10:20)
DX: M17.11 Unilateral primary osteoarthritis, right knee (principal); I10 Essential (primary) hypertension; Z79.82 Long term (current) use of aspirin; K21.9 Gastro-esophageal reflux disease without esophagitis; E03.9 Hypothyroidism, unspecified
CPT/HCPCS: 27447; 12345; 36415; 51702; 73562; 80048; 80053; 81003; 85025; 87641; 96361; 96365; 96366; 96374; 96375; 97110; 97116; 97162; 97165; 97530; C1776; C9290; G0378; J0131; J0690; J1100; J1885; J2250; J2405; J2704; J2765; J2795; J3010; J3370; J3490; J7030; J8499

== ENCOUNTER → 2020-06-04 16:22 | Outpatient (BNVA) | payer MEDICARE, SELFPAY | PROVIDERS: PCP Electrodiagnostic Medicine; Visit Provider Specialist | DX: M17.11 Unilateral primary osteoarthritis, right knee (principal) | CPT/HCPCS: 73560; 73565 ==

== ENCOUNTER → 2020-07-03 11:53 | Outpatient (BNVA) | payer MEDICARE, SELFPAY | PROVIDERS: PCP Electrodiagnostic Medicine; Visit Provider Specialist | DX: Z96.652 Presence of left artificial knee joint (principal); M25.461 Effusion, right knee; Z96.651 Presence of right artificial knee joint | CPT/HCPCS: 73560; 73565 ==

== ENCOUNTER 2020-07-08 06:00 | Outpatient (RCR) | payer MEDICARE, SELFPAY | END 2020-07-14 23:59 | disposition home or self-care (01) | LOC: SPT 06:00 | PROVIDERS: PCP Electrodiagnostic Medicine; Referring Provider Specialist; Visit Provider Specialist | DX: Z47.1 Aftercare following joint replacement surgery (principal); Z96.651 Presence of right artificial knee joint | CPT/HCPCS: 97110; 97161 ==

== ENCOUNTER 2020-07-14 12:57 | Outpatient (CLI) | payer MEDICARE, SELFPAY ==
--- NOTE | 2020-07-14 13:02 | USCV_ITS ---
Loree Read Age: 75 Gender: F : 1945 Exam Date: 07/14/2020 13:45 Ordering Phys: Raymundo Goodman MD ([email or web address]) Technologist: Elisha Drake Exam Location: [facility] [place] Indication: stenosis Risk Factors: Previous Vascular Surgery: Right Brachial BP: / Left Brachial BP: / Right Left Velocity (cm/s) Spectral Plaque Velocity (cm/s) Spectral Plaque Syst/Diast Broadening Syst/Diast Broadening 55.80/ 12.90 Prox CCA 50.10 / 13.50 49.30/ 13.70 Mid CCA 53.10 / 15.70 40.40/ 14.60 Distal CCA 48.30 / 18.10 25.10/ 7.30 Prox ICA 34.90 / 12.10 37.20/ 14.60 Mid ICA 34.50 / 11.20 42.00/ 16.20 Distal ICA 52.60 / 16.60 59.80 ECA 109.80 0.85 ICA/CCA 0.99 Antegrade Vertebral Antegrade 18.80/ 6.30 cm/s 19.60/ 3.90 cm/s Tri Subclavian Tri 91.60 105.0 0 CONCLUSIONS Right ICA stenosis <50%. Mild atheromatous plaque right carotid bulb/ICA. Left ICA stenosis <50%. Mild atheromatous plaque left carotid bulb/ICA. Normal antegrade Doppler flow noted in the right vertebral artery. Normal antegrade Doppler flow noted in the left vertebral artery. Celso Chaudhry MD (Electronically Signed) Final Date: 14 July 2020 17:25 S
--- NOTE | 2020-07-14 14:15 | USCV_ITS ---
Loree Read Age: 75 Gender: F : 1945 Exam Date: 07/14/2020 13:30 Ordering Phys: Raymundo Goodman MD ([email or web address]) Technologist: Elisha Drake [place]am [place] [facility] [place]: stenosis BP: 180 / 82 HR: 91 Rhythm: Sinus Technical Quality: Adequate MEASUREMENTS (Male / Female) Normal Values 2D ECHO LV Diastolic Diameter PLAX 3.1 cm 4.2 - 5.9 / 3.9 - 5.3 cm LV Systolic Diameter PLAX 1.5 cm LV Chamber Size 3.4 cm IVS Diastolic Thickness 1.2 cm 0.6 - 1.0 / 0.6 - 0.9 cm IVS Systolic Thickness 1.8 cm LVPW Diastolic Thickness 1.8 cm 0.6 - 1.0 / 0.6 - 0.9 cm LVPW Systolic Thickness 2.4 cm RV Chamber Size 2.8 cm LVOT Diameter 2.0 cm LV Ejection Fraction 2D Teich 82.3 % LV Ejection Fraction MOD 2C 60.9 % LV Ejection Fraction 2C AL 61.9 % LA Diameter 3.7 cm LA Width 3.7 cm LA Height 4.6 cm RA Width 2.8 cm RA Height 4.1 cm Aorta at Sinotubular Diameter 2.0 cm M-MODE LV Diastolic Diameter MM 3.9 cm 4.2 - 5.9 / 3.9 - 5.3 cm LV Systolic Diameter MM 1.7 cm LV Ejection Fraction MM Teich 86.6 % IVS Diastolic Thickness MM 1.1 cm 0.6 - 1.0 / 0.6 - 0.9 cm IVS Systolic Thickness MM 1.6 cm LVPW Diastolic Thickness MM 1.1 cm 0.6 - 1.0 / 0.6 - 0.9 cm LVPW Systolic Thickness MM 1.6 cm Aortic Annulus Diameter 2.5 cm LA Ao Ratio MM 1.5 MV E Point Septal Separation 0.6 cm DOPPLER AV Peak Velocity 291.0 cm/s LVOT Peak Velocity 117.0 cm/s AV Area Cont Eq vti 1.5 cm squared AV Area Cont Eq pk 1.3 cm squared MV Area PHT 2.9 cm squared Mitral E to A Ratio 0.9 MV E' Velocity 58.0 cm/s Mitral E to MV E' Ratio 16.4 Mitral E to LV E' Lateral Ratio 18.0 Mitral E to LV E' Septal Ratio 15.1 TR Peak Velocity 238.0 cm/s TR Peak Gradient 22.7 mmHg TV Peak E Velocity 67.0 cm/s Right Atrial Pressure 3.0 mmHg Pulmonary Artery Systolic Pressu 25.7 mmHg PV Peak Velocity 104.0 cm/s RV Acceleration Time 0.1 s RV Ejection Time 0.4 s RV AcT/ET 0.3 FINDINGS Left Ventricle Normal left ventricular cavity size. Normal left ventricular systolic function. No regional wall motion abnormalities. Left ventricular ejection fraction is estimated at 60 %. Grade I/IV diastolic dysfunction (abnormal relaxation filling pattern), normal to mildly elevated filling pressures. Acceleration of flow in the left ventricle outflow tract noted. Asymmetrical thickening of basal septum noted, there is no systolic anterior motion of mitral valve noted Right Ventricle The right ventricle is normal in size and function. Right Atrium The right atrium is normal in size. Left Atrium Moderately increased left atrial size. Mitral Valve Moderately thickened mitral valve. Moderate mitral annular calcification. No mitral valve stenosis. Mild-moderate mitral valve regurgitation. Aortic Valve Severe aortic valve calcification. Moderate aortic valve stenosis, mean gradient 16.1 mmHg, BRIAN 1.5 cm squared. Trace aortic valve regurgitation. Tricuspid Valve Structurally normal tricuspid valve without significant stenosis or regurgitation. Pulmonary artery systolic pressure is normal. Pulmonic Valve Structurally normal pulmonic valve without significant stenosis. There is no pulmonic regurgitation. Pericardium Normal pericardium without effusion. Aorta Normal ascending aorta dimension. CONCLUSIONS 1-Normal left ventricular cavity size. Normal left ventricular systolic function. No regional wall motion abnormalities. Left ventricular ejection fraction is estimated at 60 %. Grade I/IV diastolic dysfunction (abnormal relaxation filling pattern), normal to mildly elevated filling pressures. Acceleration of flow in the left ventricle outflow tract noted. Asymmetrical thickening of basal septum noted, there is no systolic anterior motion of mitral valve noted. 2-Moderately increased left atrial size. 3-Moderately thickened mitral valve. Moderate mitral annular calcification. No mitral valve stenosis. Mild-moderate mitral valve regurgitation. 4-Severe aortic valve calcification. Moderate aortic valve stenosis, mean gradient 16.1 mmHg, BRIAN 1.5 cm squared. Trace aortic valve regurgitation. 5-Structurally normal tricuspid valve without significant stenosis or regurgitation. Pulmonary artery systolic pressure is normal. 6-There is no pericardial effusion. 7-Pulmonary artery systolic pressure is within normal limits. 8-When compared to the prior echocardiogram dated 16 February 2018 there is moderate aortic stenosis and moderate mitral valve regurgitation now Raymundo Goodman MD (Electronically Signed) Final Date: 16 July 2020 15:53 S
== END 2020-07-14 12:58 | disposition home or self-care (01) ==
LOC: US 12:59
PROVIDERS: PCP Electrodiagnostic Medicine; Visit Provider Internal Medicine Cardiovascular Disease
DX: I65.23 Occlusion and stenosis of bilateral carotid arteries (principal); I08.0 Rheumatic disorders of both mitral and aortic valves
CPT/HCPCS: 93306; 93880

== ENCOUNTER 2020-07-15 06:00 | Outpatient (RCR) | payer MEDICARE, SELFPAY | END 2020-08-14 23:59 | disposition home or self-care (01) | LOC: SPT 06:00 | PROVIDERS: PCP Electrodiagnostic Medicine; Referring Provider Specialist; Visit Provider Specialist | DX: Z47.1 Aftercare following joint replacement surgery (principal); Z96.651 Presence of right artificial knee joint | CPT/HCPCS: 97110 ==

== ENCOUNTER → 2020-09-17 13:36 | Outpatient (BNVA) | payer MEDICARE, SELFPAY | PROVIDERS: PCP Electrodiagnostic Medicine; Visit Provider Specialist | DX: M17.11 Unilateral primary osteoarthritis, right knee (principal); Z96.653 Presence of artificial knee joint, bilateral | CPT/HCPCS: 73560; 73565 ==

== ENCOUNTER 2020-10-14 06:00 | Outpatient (RCR) | payer MEDICARE, SELFPAY | END 2020-11-12 23:59 | disposition home or self-care (01) | LOC: SPT 06:00 | PROVIDERS: PCP Electrodiagnostic Medicine; Referring Provider Specialist; Visit Provider Specialist | DX: Z47.1 Aftercare following joint replacement surgery (principal); Z96.651 Presence of right artificial knee joint | CPT/HCPCS: 97110; 97161 ==

== ENCOUNTER 2020-11-13 06:00 | Outpatient (RCR) | payer MEDICARE, SELFPAY | END 2020-12-12 23:59 | disposition home or self-care (01) | LOC: SPT 06:00 | PROVIDERS: PCP Electrodiagnostic Medicine; Referring Provider Specialist; Visit Provider Specialist | DX: Z47.1 Aftercare following joint replacement surgery (principal); Z96.651 Presence of right artificial knee joint | CPT/HCPCS: 97110 ==

== ENCOUNTER → 2020-12-17 11:47 | Outpatient (BNVA) | payer MEDICARE, SELFPAY | PROVIDERS: PCP Electrodiagnostic Medicine; Visit Provider Specialist | DX: M17.11 Unilateral primary osteoarthritis, right knee (principal); Z96.652 Presence of left artificial knee joint; Z96.653 Presence of artificial knee joint, bilateral; M25.569 Pain in unspecified knee | CPT/HCPCS: 73560; 73565 ==

== ENCOUNTER 2021-08-13 06:00 | Outpatient (RCR) | payer MEDICARE, SELFPAY | END 2021-08-14 23:59 | disposition home or self-care (01) | LOC: SPT 06:00 | PROVIDERS: PCP Electrodiagnostic Medicine; Referring Provider Electrodiagnostic Medicine; Visit Provider Electrodiagnostic Medicine | DX: M75.102 Unspecified rotator cuff tear or rupture of left shoulder, not specified as traumatic (principal) | CPT/HCPCS: 97161 ==

== ENCOUNTER 2021-08-15 06:00 | Outpatient (RCR) | payer MEDICARE, SELFPAY | END 2021-09-14 23:59 | disposition home or self-care (01) | LOC: SPT 06:00 | PROVIDERS: PCP Electrodiagnostic Medicine; Referring Provider Electrodiagnostic Medicine; Visit Provider Electrodiagnostic Medicine | DX: M75.102 Unspecified rotator cuff tear or rupture of left shoulder, not specified as traumatic (principal) | CPT/HCPCS: 97110 ==

== ENCOUNTER 2021-09-15 06:00 | Outpatient (RCR) | payer MEDICARE, SELFPAY | END 2021-10-12 23:59 | disposition home or self-care (01) | LOC: SPT 06:00 | PROVIDERS: PCP Electrodiagnostic Medicine; Referring Provider Electrodiagnostic Medicine; Visit Provider Electrodiagnostic Medicine | DX: M75.102 Unspecified rotator cuff tear or rupture of left shoulder, not specified as traumatic (principal) | CPT/HCPCS: 97110 ==

== ENCOUNTER → 2021-12-30 13:12 | Outpatient (BNVA) | payer MEDICARE, SELFPAY | PROVIDERS: PCP Electrodiagnostic Medicine; Visit Provider Specialist | DX: M17.0 Bilateral primary osteoarthritis of knee; Z48.89 Encounter for other specified surgical aftercare | CPT/HCPCS: 73560; 73565; 99213 ==

== ENCOUNTER → 2022-01-07 10:51 | Outpatient (BNVA) | payer MEDICARE, SELFPAY | PROVIDERS: PCP Electrodiagnostic Medicine; Visit Provider Physician Assistant | DX: M43.16 Spondylolisthesis, lumbar region (principal); M79.604 Pain in right leg; M79.605 Pain in left leg | CPT/HCPCS: 72110; 99203; 99204 ==

== ENCOUNTER 2022-02-09 12:22 | Outpatient (CLI) | payer MEDICARE, SELFPAY ==
--- NOTE | 2022-02-09 12:45 | USCV_ITS ---
Loree Read Age: 76 Gender: F : 1945 Exam Date: 02/09/2022 12:46 Ordering Phys: Raymundo Goodman MD ([email or web address]) Technologist: Exam Location: [facility] – [place] Indication: as BP: 125 / 74 HR: 75 Rhythm: Sinus Technical Quality: Adequate MEASUREMENTS (Male / Female) Normal Values 2D ECHO LV Diastolic Diameter PLAX 3.5 cm 4.2 - 5.9 / 3.9 - 5.3 cm LV Systolic Diameter PLAX 2.0 cm IVS Diastolic Thickness 1.4 cm 0.6 - 1.0 / 0.6 - 0.9 cm IVS Systolic Thickness 1.6 cm LVPW Diastolic Thickness 1.5 cm 0.6 - 1.0 / 0.6 - 0.9 cm LVPW Systolic Thickness 1.3 cm LVOT Diameter 2.1 cm LV Ejection Fraction 2D Teich 72.9 % LV Ejection Fraction MOD 2C 62.9 % LV Ejection Fraction 2C AL 62.9 % LA Diameter 3.4 cm Aorta at Sinotubular Diameter 2.3 cm IVC Diameter 1.8 cm M-MODE Aortic Annulus Diameter 3.4 cm LA Ao Ratio MM 1.0 MV E Point Septal Separation 0.6 cm DOPPLER AV Peak Velocity 347.7 cm/s LVOT Peak Velocity 107.0 cm/s AV Area Cont Eq vti 1.1 cm squared AV Area Cont Eq pk 1.0 cm squared MV Area PHT 5.0 cm squared Mitral E to A Ratio 1.0 MV E' Velocity 58.5 cm/s Mitral E to MV E' Ratio 18.1 Mitral E to LV E' Lateral Ratio 17.0 Mitral E to LV E' Septal Ratio 19.4 TR Peak Velocity 246.7 cm/s TR Peak Gradient 24.3 mmHg TV Peak E Velocity 63.0 cm/s Right Atrial Pressure 3.0 mmHg Pulmonary Artery Systolic Pressu 27.3 mmHg PV Peak Velocity 101.0 cm/s FINDINGS Left Ventricle Normal left ventricular cavity size. Mild left ventricular hypertrophy. Normal left ventricular systolic function. No regional wall motion abnormalities. Grade II/IV diastolic dysfunction, moderately elevated filling pressures. Left ventricular ejection fraction is estimated at 60 %. Right Ventricle Normal right ventricular size and systolic function. Normal right ventricular systolic pressure. Right Atrium The right atrium is normal in size. Left Atrium The left atrium is normal in size. Mitral Valve Structurally normal mitral valve without significant stenosis or prolapse. There is no mitral regurgitation. Aortic Valve Structurally normal trileaflet aortic valve. Severe aortic valve calcification. No aortic valve regurgitation. Moderate aortic valve stenosis, mean gradient 22.9 mmHg, BRIAN 1.1 cm squared. Tricuspid Valve Structurally normal tricuspid valve. Trace tricuspid valve regurgitation. Pulmonic Valve Pulmonic valve not well visualized. Trace pulmonary valve regurgitation. Pericardium Normal pericardium without effusion. Aorta Normal ascending aorta dimension. IVC The inferior vena cava pulmonary and hepatic veins appear normal. CONCLUSIONS Normal left ventricular cavity size. Mild left ventricular hypertrophy. Normal left ventricular systolic function. No regional wall motion abnormalities. Grade II/IV diastolic dysfunction, moderately elevated filling pressures. Left ventricular ejection fraction is estimated at 60 %. Structurally normal trileaflet aortic valve. Severe aortic valve calcification. No aortic valve regurgitation. Moderate aortic valve stenosis, mean gradient 22.9 mmHg, BRIAN 1.[address] Kunal Oh MD (Electronically Signed) Final Date: 09 February 2022 16:01 S
== END 2022-02-09 12:23 | disposition home or self-care (01) ==
LOC: RAD 12:24
PROVIDERS: PCP Electrodiagnostic Medicine; Visit Provider Internal Medicine Cardiovascular Disease
DX: I35.0 Nonrheumatic aortic (valve) stenosis (principal); R06.02 Shortness of breath
CPT/HCPCS: 93306

== ENCOUNTER 2022-03-23 11:12 | Outpatient (CLI) | payer MEDICARE, SELFPAY ==
--- NOTE | 2022-03-23 11:45 | MR_ITS ---
WS: [id number] MRI LUMBAR SPINE NONCONTRAST TECHNIQUE: Sagittal T1, T2 and STIR imaging. Axial T1 and T2 imaging. 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 FINDINGS: Mild lumbar curve. No acute compression. Disc space narrowing worse at L1-L2 with slight re trolisthesis. Small disc protrusion cervical spine barber imaging at C5-C6 and C6-C7 with mild central canal stenosi s. L1-L2: Mild disc osteophytic ridging. Narrowing of the LEFT subarticular recess. Mild LEFT foraminal narrowing. Mild facet arthropathy. L2-L3: No significant disc bulging. Mild facet arthropathy. Spinal canal is patent. Tiny LEFT foramin al protrusion with slight encroachment on the exiting LEFT L2 nerve root. L3-L4: Mild annular bulging. Slight narrowing of the RIGHT subarticular recess. Mild facet arthropath y. Foramen are patent. L4-L5: Mild annular bulging. Narrowing of the RIGHT subarticular recess with impingement on the trave rsing RIGHT L5 nerve root due to advanced RIGHT facet arthropathy. Foramen are patent. L5-S1: Mild disc osteophytic ridging. Slight impingement on the traversing RIGHT S1 nerve root. Moder ate facet arthropathy. Foramen are patent. Visualized pelvic bony structures: Normal. Paravertebral soft tissues: Normal. MR/MR lumbar spine wo con* [id number] IMPRESSION: 1. Mild lumbar curve. No acute compression. No high-grade central canal stenos is. 2. Mild central canal stenosis L3-L4 with slight narrowing of the RIGHT subart icular recess. 3. Advanced RIGHT facet arthropathy L4-L5 impinges the RIGHT subarticular rece ss and traversing RIGHT L5 nerve root. Recommend correlation for RIGHT L5 nerve root symptoms. 4. Disc osteophyte ridging eccentric to the RIGHT L5-S1 impinges the RIGHT S1 nerve root in the subarticular recess. Moderate facet arthropathy at this level . 5. Disc desiccation L1-L2 with impingement on the LEFT subarticular recess and traversing LEFT L2 nerve root. Mild LEFT foraminal narrowing. 6. Shallow disc protrusion C5-C6 and C6-C7 with mild central canal stenosis pa rtially evaluated on the barber imaging. This can be further evaluated with cerv ical spine MRI.
== END 2022-03-23 11:13 | disposition home or self-care (01) ==
LOC: RAD 11:12
PROVIDERS: PCP Electrodiagnostic Medicine; Visit Provider Physician Assistant
DX: M43.16 Spondylolisthesis, lumbar region (principal); M48.061 Spinal stenosis, lumbar region without neurogenic claudication; M47.816 Spondylosis without myelopathy or radiculopathy, lumbar region; M25.78 Osteophyte, vertebrae; M50.222 Other cervical disc displacement at C5-C6 level
CPT/HCPCS: 72148

== ENCOUNTER → 2022-05-13 09:15 | Outpatient (BNVA) | payer MEDICARE, SELFPAY | PROVIDERS: PCP Electrodiagnostic Medicine; Visit Provider Orthopaedic Surgery | DX: M48.062 Spinal stenosis, lumbar region with neurogenic claudication (principal) | CPT/HCPCS: 99214 ==

== ENCOUNTER 2022-05-21 09:52 | Day surgery (SDC) | payer MEDICARE, SELFPAY ==
[2022-05-18 08:56] VITALS: BMI 29.9
--- NOTE | 2022-05-18 11:00 | P.ANESASSM_ITS ---
Pre-Anesthetic Assessment Height/Weight: Height 1.7 m Weight 86.636 kg Preop Diagnosis: Lumbar stenosis with neurogenic claudication Operation Date: 05/21/22 12:00 Proposed Procedures p Lumbar Spine Decompression L3/4 L4/5 [id number] M48.062(Bilateral) - Dar Mc DO Familial anesthetic complications: none Was Beta Aung taken within 24 hours: Yes Was Clonidine taken within 24 hours: N/A Social No alcohol and No tobacco Exam alert, oriented x 3, clear to auscultation bilaterally and regular rate & rhythm Airway Submandibular: within normal limits Cervical ROM: within normal limits Mallampati: Class II Dentition: full CV/HEM Hypertension, Murmur () and Peripheral Vascular Disease CONCLUSIONS ?Normal left ventricular cavity size. Mild left ventricular ?hypertrophy. Normal left ventricular systolic function. No ?regional wall motion abnormalities. Grade II/IV diastolic ?dysfunction, moderately elevated filling pressures. Left ?ventricular ejection fraction is estimated at 60 %. ?Structurally normal trileaflet aortic valve. Severe aortic valve ?calcification. No aortic valve regurgitation. Moderate aortic ?valve stenosis, mean gradient 22.9 mmHg, BRIAN 1.1 cm squared. ?Dr. Kunal Oh MD ?(Electronically Signed) ?Final Date:? ? ? 09 February 2022 GI Gastroesophageal Reflux Disease Metabolic Thyroid Disease chronic steroids Musc/skel Lower Back Pain and Osteoarthritis/DJD Anesthetic Plan ASA status: 3 Anesthesia: General Medications/Allergies Home Medications Medication Instructions Recorded Confirmed Last Taken Type acetaminophen 500 mg tablet 1,000 mg PO Q6H PRN Pain 08/27/19 05/18/22 05/19/20 22:30 History (Tylenol Extra Strength) aspirin 81 mg tablet,delayed 81 mg PO DAILY 08/27/19 05/18/22 05/14/22 History release biotin 1 mg capsule 1 mg PO ONCE 08/27/19 05/18/22 05/19/20 History cetirizine 10 mg capsule (Allergy 10 mg PO DAILY 08/27/19 05/18/22 05/19/20 History Relief (cetirizine)) fluticasone propionate 50 1 spray intranasal BID 08/27/19 05/18/22 05/19/20 22:00 History mcg/actuation nasal spray,suspension (Flonase Allergy Relief) lysine 1,000 mg tablet 1,000 mg PO BID 08/27/19 05/18/22 05/19/20 History omeprazole magnesium 20 mg 20 mg PO DAILY 08/27/19 05/18/22 05/19/20 History tablet,delayed release zinc 50 mg tablet (Chelated Zinc) 50 mg PO DAILY 08/27/19 05/18/22 05/19/20 History methocarbamol 500 mg tablet 500 mg PO QID PRN Muscle Spasm 09/13/19 05/18/22 03/18/20 History multivitamin 1 tab PO DAILY 11/29/19 05/18/22 05/19/20 History ascorbic acid (vitamin C) 1,000 mg 1,500 mg PO DAILY 05/14/20 05/18/22 05/19/20 History tablet (Vitamin C) calcium carbonate 600 mg-vitamin 1 cap PO DAILY 05/14/20 05/18/22 05/19/20 History D3 5 mcg (200 unit) capsule (Calcium 600 + D(3)) cholecalciferol (vitamin D3) 10 400 unit PO DAILY 05/14/20 05/18/22 05/19/20 History mcg (400 unit) capsule (Vitamin D3) magnesium 200 mg tablet 400 mg PO BID 05/14/20 05/18/22 05/19/20 History vitamin E 268 mg (400 unit) capsule 400 unit PO DAILY 05/14/20 05/18/22 05/19/20 History tramadol 50 mg tablet 50 mg PO Q6H PRN Pain #60 tabs 06/04/20 05/18/22 Unknown Rx estradiol 1 mg tablet 1 mg PO DAILY 03/10/21 05/18/22 Unknown History levothyroxine 75 mcg capsule 75 mcg PO DAILY 03/10/21 05/18/22 Unknown History meloxicam 15 mg tablet 15 mg PO DAILY 03/10/21 05/18/22 Unknown History omega-3 fatty acids 1,000 mg 1,000 mg PO BID 03/10/21 05/18/22 05/14/22 History capsule (Fish Oil Concentrate) carvedilol 12.5 mg tablet 12.5 mg PO BID #180 tabs 09/22/21 05/18/22 Unknown Rx valsartan 160 1 tab PO DAILY #90 tabs 09/22/21 05/18/22 Unknown Rx mg-hydrochlorothiazide 12.5 mg tablet prednisone 20 mg tablet 20 mg PO DAILY #15 tabs 05/13/22 05/18/22 05/18/22 Rx Allergies Allergy/AdvReac Type Severity Reaction Status Date / Time quinine Allergy Severe Unknown Verified 05/18/22 08:48 Quinidine-Quinine Analogues Allergy Unknown Unknown Verified 05/18/22 08:48 (Cincho [Quinidine-Quinine Analogues (Cinchona Alkaloids)] Sulfa (Sulfonamide AdvReac Intermediate ADR-Gastrointestinal Verified 05/18/22 08:48 Antibiotics) Upset SULFA Allergy Unknown Unknown Uncoded 05/18/22 08:48 [facility] Anesthesia Medical History Aortic stenosis Arthritis of knee, right Critical ischemia of foot Essential hypertension GERD (gastroesophageal reflux disease) Hammertoe of right foot History of peripheral arterial disease Hypertension Hyperthyroidism 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 Primary osteoarthritis of right knee Right total knee arthroplasty on May 20, 2020. PVD (peripheral vascular disease) Right foot pain Right knee DJD Status post angiography of extremity Social History Smoking and tobacco status: never smoked Alcohol intake: never Current occupation: one step x 2 into [employer] Anesthesia Cardiac Studies: Echocardiogram 02/09/22 Echocardiogram Ultrasound 07/14/20
[2022-05-19 06:58] LABS: Blood Urea Nitrogen 32 mg/dL (8-23); Calcium 9.5 mg/dL (8.5-10.5); Carbon Dioxide 23 mmol/L (22-29); Chloride 95 mmol/L (98-107); Glucose 90 mg/dL (65-115); Osmolality Calculated 290 mOsm/kg (285-295); Sodium 137 mmol/L (136-145)
[2022-05-19 07:02] LABS: Anion Gap 23.2 (5-19); Potassium 4.2 mmol/L (3.5-5.1)
[2022-05-21] VITALS (7 sets, daily range): BP systolic 150–179; BP diastolic 75–98; PULSE 65–95; RESP 14–27; TEMP 36.2–36.8; O2SAT 93–99
--- NOTE | 2022-05-21 | XR_ITS ---
WS: [id number] INTRAOPERATIVE TECHNIQUE: 3 Spot fluoroscopic images for intraoperative purposes. FLUOROSCOPY TIME: 17.6 seconds CLINICAL INFORMATION: Decompression COMPARISON: None. FINDINGS: Localization markers overlying the LEFT L3-L4 and LEFT L4-L5 interspaces XR/XR lumbar spine 1V [id number] IMPRESSION: Images obtained for intraoperative purposes.
--- NOTE | 2022-05-21 | SCC_ITS ---
Procedure: 1. L3/4 laminectomy with partial facetectomies 2. L4/5 Laminectomy with partial facetectomies 17.6 seconds of fluoroscopic guidance, for a cumulative dose of 11.3 mGy, was provided to Dr. Mc by the radiology department. C-arm images of the lumbar spine were saved for the patient's permanent record. [facility]
[2022-05-21] MEDS: sodium chloride 0.9% 1,000 ML 30 ML IV (10:59)
--- NOTE | 2022-05-21 12:10 | P.ANESUD_ITS ---
Pre-Anesthetic Update Pre-Anesthetic Assessment: Date of Surgery/Procedure: 05/21/22 Preop Corrie gnosis: Lumbar stenosis with neurogenic claudication Proposed Procedure: Operation Date: 05/21/22 12:00 Proposed Procedures p Lumbar Spine Decompression L3/4 L4/5 [id number] M48.062(Bilateral) - Dar Mc, DO Any changes to Pre-Anesthetic Assessment?: No Last Intake: Intake Last Liquid Date 05/20/22 Last Liquid Time 20:00 Last Solid Date 05/20/22 Last Solid Time 20:00 Vitals: Temperature 97.2 F L 05/21/22 14:50 Temperature Source Temporal Artery S can 05/21/22 14:50 Pulse Rate 65 05/21/22 15:16 Respiratory Rate 18 05/21/22 15:16 Blood Pressure 150/85 05/21/22 15:16 Blood Pressure Kathleen n 106 05/21/22 15:16 Pulse Oximetry 93 05/21/22 15:16 Oxygen Delivery Me thod 05/21/22 15:16 Oxygen Flow Rate 6 05/21/22 14:30 Exam: Pre-Anes Outpt Exam: alert, oriented x 3, clear to auscultation bilaterally and regular rate & rhythm Cardiac Studies: Echocardiogram 02/09/22 Echocardiogram Ultrasound 07/14/20
--- NOTE | 2022-05-21 12:38 | W.PM.OPSUD ---
Surgery/Procedure H&P Update DATE OF PROCEDURE: May 21, 2022 DATE H&P PERFORMED: 05/13/22 H&P UPDATE INFORMATION: I have reviewed H&P completed within last 30 days, I have examined patient prior to procedure and No changes to prior documentation PREOP DIAGNOSIS: Lumbar stenosis with neurogenic claudication PLANNED PROCEDURE: Operation Date: 05/21/22 12:00 Proposed Procedures p Lumbar Spine Decompression L3/4 L4/5 [id number] M48.062(Bilateral) - Dar Mc DO
[2022-05-21] MEDS: ceFAZolin 2,000 MG in sodium chloride 0.9% (plus) 50 ML 100 MG IV (13:13)
--- NOTE | 2022-05-21 14:51 | P.OP_ITS ---
Operative Report Date of procedure: May 21, 2022 Pre-op diagnosis: Preop Diagnosis Lumbar stenosis with neurogenic claudication Post-op diagnosis: same Procedure done: 1. L3/4 laminectomy with partial facetectomies 2. L4/5 Laminectomy with partial facetectomies Surgeon: Dar Mc Warehouse Technician: Nicolás Villasenor Warehouse Technician: The rn medical surgical, Nicolás Villasenor, PAC was needed for his expertise under the microscope. He was important and necessary throughout the procedure to complete in a safe and timely manner. He assisted with patient positioning prepping and draping tissue retraction suctioning of the operative field protection of the dural sac and tissue closure. Estimated blood loss (mL): 20 Procedure: 1. L3/4 laminectomy with partial facetectomies 2. L4/5 Laminectomy with partial facetectomies Patient is brought to the operative suite. After undergoing anesthesia they are placed in the prone position. All areas of impingement are well padded. Patient is then prepped and draped in the normal sterile fashion. A skin incision is made over the L4/5 level. This is confirmed under c-arm guidance. A series of dilators are passed and the tubular retractor is docked on the L4 lamina. A bovie is used to clear the soft tissue off the lamina and the L 4/5 facet joint. A high speed catarina is then used to perform the breanna ctomy and take down the medial aspect of the L 4/5 facet joint. A kerrison rongeure was then used to take down the remaining lamina and smooth the edged of the laminectomy up to the point where the ligamentum flavum attaches. Attention was then brought to the medial aspect of the facet joint. The remaining medial aspect of the superior and inferior aspect of the facet joint were taken down with the kerrison from the pedicle of L4 to L 5. The facet joint had significant hypertrophy. Attention was then brought to the Ligamentum Flavum. The ligament was taken down from the lamina of L4 to L5 and out medially to the remaining facet joint. The ligament was thick. The dura was then exposed. The dura was in good repair. The L4 nerve was then traced with a curette out the L4/5 foramen and found to be adequately decompressed. The L5 nerve was traced with a curette around the L5 pedicle. The lateral recess was opened with a kerrison helping to further decompress the L5 nerve. The tubular retractor was then tilted to the contralateral side. The bovie was used to take down the soft tissue on the spinous process. The high speed catarina was used to take down the spinous process and then the contralateral lamina of L4. The kerrison rongeur was used to take down the remaining lamina to the point where the ligamentum flavum attached and the ligamentum flavum was taken down from L3 to L4. The kerrison rongeur was then used to reach across and take down the medial aspect of the contralateral L4/5 facet joint.The currete was used to trace the contralateral L4 nerve out the L4/5 foramen to make sure it was decompressed adequatesly and the L5 was traced around the L5 pedicle. The lateral recess was opened further with the kerrison to ensure the L5 is adequately decompressed. Wound is then irrigated copiously with saline and surgiflo is used to stop any bleeding. The tubular retractor is removed and A skin incision is made over the L3/4 level. This is confirmed under c-arm guidance. A series of dilators are passed and the tubular retractor is docked on the L3 lamina. A bovie is used to clear the soft tissue off the lamina and the L 3/4 facet joint. A high speed catarina is then used to perform the laminectomy and take down the medial aspect of the L 3/4 facet joint. A kerrison rongeure was then used to take down the remaining lamina and smooth the edged of the laminectomy up to the point where the ligamentum flavum attaches. Attention was then brought to the medial aspect of the facet joint. The remaining medial aspect of the superior and inferior aspect of the facet joint were taken down with the kerrison from the pedicle of L3 to L 4. The facet joint had significant hypertrophy. Attention was then brought to the Ligamentum Flavum. The ligament was taken down from the lamina of L3 to L4 and out medially to the remaining facet joint. The ligament was thick. The dura was then exposed. The dura was in good repair. The L3 nerve was then traced with a curette out the L3/4 foramen and found to be adequately decompressed. The L4 nerve was traced with a curette around the L4 pedicle. The lateral recess was opened with a kerrison helping to further decompress the L4 nerve. The tubular retractor was then tilted to the contralateral side. The bovie was used to take down the soft tissue on the spinous process. The high speed catarina was used to take down the spinous process and then the contralateral lamina of L3. The kerrison rongeur was used to take down the remaining lamina to the point where the ligamentum flavum attached and the ligamentum flavum was taken down from L3 to L4. The kerrison rongeur was then used to reach across and take down the medial aspect of the contralateral L3/4 facet joint.The currete was used to trace the contralateral L3 nerve out the L3/4 foramen to make sure it was decompressed adequatesly and the L4 was traced around the L4 pedicle. The lateral recess was opened further with the kerrison to ensure the L4 is adequately decompressed. Wound is then irrigated copiously with saline and surgiflo is used to stop any bleeding. The tubular retractor is removed and the wound is closed with vicryl and monocryl suture. Glue is then used to protect the wound. A sterile dressing is then placed. Patient was then placed in the supine position and transferred to the PACU in stable condition.
[2022-05-21] MEDS: HYDROcodone-acetaminophen 5-325 mg Tablet 1 TAB PO (15:40)
--- NOTE | 2022-05-21 15:51 | ANE.PACU2 ---
Inpatient post-anesthesia follow up: Airway intact: Yes Vital signs: Temperature 97.2 F Pulse Rate 65 Respiratory Rate 18 Blood Pressure 150/85 Pulse Oximetry 93 Oxygen Delivery Me thod Room Air Oxygen Flow Rate 6 Fraction of Inspir ed Oxygen Hydration adequate: Yes Nausea and vomiting: No Pain level: 5 Mental status: Baseline
== END 2022-05-21 15:50 | disposition home or self-care (01) ==
PROVIDERS: Anesthesiology; PCP Electrodiagnostic Medicine; Visit Provider Orthopaedic Surgery
PROC: (CPT 63005; principal; 2022-05-21 11:50)
DX: M48.062 Spinal stenosis, lumbar region with neurogenic claudication (principal); I10 Essential (primary) hypertension; R01.1 Cardiac murmur, unspecified; I73.9 Peripheral vascular disease, unspecified; K21.9 Gastro-esophageal reflux disease without esophagitis; Z79.82 Long term (current) use of aspirin; Z79.52 Long term (current) use of systemic steroids; Z88.2 Allergy status to sulfonamides
CPT/HCPCS: 63047; 63048; 36415; 72020; 76000; 80048; J1100; J2405; J2704; J2710; J3010; J3490; J7030

== ENCOUNTER → 2022-06-03 08:52 | Outpatient (BNVA) | payer MEDICARE, SELFPAY | PROVIDERS: PCP Electrodiagnostic Medicine; Visit Provider Orthopaedic Surgery | DX: Z47.89 Encounter for other orthopedic aftercare (principal) | CPT/HCPCS: 99024 ==

== ENCOUNTER → 2022-07-01 12:48 | Outpatient (BNVA) | payer MEDICARE, SELFPAY | PROVIDERS: PCP Electrodiagnostic Medicine; Visit Provider Orthopaedic Surgery | DX: Z47.89 Encounter for other orthopedic aftercare (principal) | CPT/HCPCS: 99024 ==

== ENCOUNTER → 2022-08-03 12:36 | Outpatient (BNVA) | payer MEDICARE, SELFPAY | PROVIDERS: PCP Electrodiagnostic Medicine; Visit Provider Orthopaedic Surgery | DX: Z47.89 Encounter for other orthopedic aftercare (principal) | CPT/HCPCS: 99024 ==

== ENCOUNTER → 2022-10-07 10:21 | Outpatient (BNVA) | payer MEDICARE, SELFPAY | PROVIDERS: PCP Electrodiagnostic Medicine; Visit Provider Internal Medicine Cardiovascular Disease | DX: I73.9 Peripheral vascular disease, unspecified (principal); I77.9 Disorder of arteries and arterioles, unspecified; I10 Essential (primary) hypertension; I35.0 Nonrheumatic aortic (valve) stenosis | CPT/HCPCS: 99214 ==

== ENCOUNTER 2023-01-18 12:02 | Outpatient (CLI) | payer MEDICARE, SELFPAY ==
--- NOTE | 2023-01-18 12:08 | USCV_ITS ---
Loree Read Age: 77 Gender: F : 1945 Exam Date: 01/18/2023 12:36 Ordering Phys: Ese Gaston MD ([email or web address]) Technologist: CT [place] [facility] [place]: ao stenosis BP: 178 / 97 HR: 61 Rhythm: Sinus Technical Quality: Adequate MEASUREMENTS (Male / Female) Normal Values 2D ECHO LV Diastolic Diameter PLAX 2.8 cm 4.2 - 5.9 / 3.9 - 5.3 cm LV Systolic Diameter PLAX 1.9 cm IVS Diastolic Thickness 1.1 cm 0.6 - 1.0 / 0.6 - 0.9 cm IVS Systolic Thickness 1.9 cm LVPW Diastolic Thickness 1.6 cm 0.6 - 1.0 / 0.6 - 0.9 cm LVPW Systolic Thickness 2.0 cm LVOT Diameter 2.1 cm LV Ejection Fraction 2D Teich 67.8 % LV Ejection Fraction MOD 2C 52.4 % LV Ejection Fraction 2C AL 53.3 % LA Diameter 4.1 cm Aorta at Sinotubular Diameter 2.4 cm M-MODE Aortic Annulus Diameter 2.7 cm LA Ao Ratio MM 1.6 DOPPLER AV Peak Velocity 378.0 cm/s LVOT Peak Velocity 119.0 cm/s AV Area Cont Eq vti 1.4 cm squared AV Area Cont Eq pk 1.1 cm squared MV Peak Velocity 165.0 cm/s MV Area PHT 2.8 cm squared Mitral E to A Ratio 1.2 MV E' Velocity 73.5 cm/s Mitral E to MV E' Ratio 31.5 Mitral E to LV E' Lateral Ratio 28.9 Mitral E to LV E' Septal Ratio 35.4 TR Peak Velocity 205.6 cm/s TR Peak Gradient 16.9 mmHg TR Mean Velocity 162.4 cm/s TR Mean Gradient 12.3 mmHg TR Velocity Time Integral 63.9 cm Right Atrial Pressure 3.0 mmHg Pulmonary Artery Systolic Pressu 19.9 mmHg PV Peak Velocity 118.0 cm/s FINDINGS Left Ventricle Left ventricle is normal in size. LV systolic function is normal with EF 55 to 60%. No regional wall motion abnormalities are seen. Right Ventricle Normal in size and function Right Atrium Normal in size Left Atrium Normal in size Mitral Valve Moderate mitral valve annular calcification. Mild mitral regurgitation. Aortic Valve Aortic valve is thickened and calcified. Moderate to severe aortic stenosis with aortic valve area of 1.1 cm squared with mean gradient of 33 mmHg. Tricuspid Valve Mild tricuspid regurgitation. RVSP is normal. Pulmonic Valve Not well-visualized. mild pulmonic regurgitation. Pericardium Normal Aorta Normal in size IVC Appears to be normal CONCLUSIONS LV systolic function is normal with EF of 55 to 60%. Mild mitral regurgitation Moderate to severe aortic stenosis with aortic valve area 1.1 cm squared and mean gradient of 33 mmHg Mild tricuspid regurgitation Mild pulmonic regurgitation Compared to prior echocardiogram from 02/09/2022, aortic stenosis has progressed and mean gradient has increased Ronald Celestin MD (Electronically Signed) Final Date: 22 January 2023 14:53 S
--- NOTE | 2023-01-18 12:08 | USCV_ITS ---
Loree Read Age: 77 Gender: F : 1945 Exam Date: 01/18/2023 13:14 Ordering Phys: Ese Gaston MD ([email or web address]) Technologist: CT Exam Location: [facility] [place] Indication: stenosis Risk Factors: Previous Vascular Surgery: Right Brachial BP: / Left Brachial BP: / Right Left Velocity (cm/s) Spectral Plaque Velocity (cm/s) Spectral Plaque Syst/Diast Broadening Syst/Diast Broadening 77.35/ 12.75 Prox CCA 88.20 / 15.40 69.55/ 13.65 Mid CCA 73.50 / 14.50 60.35/ 13.00 Distal CCA 71.80 / 12.80 56.93/ 0.00 Prox ICA 52.30 / 12.90 47.20/ 14.90 Mid ICA 40.30 / 14.00 66.60/ 16.55 Distal ICA 74.10 / 17.60 118.10 ECA 165.50 0.84 ICA/CCA 0.84 Antegrade Vertebral Antegrade 36.60/ 10.60 cm/s 42.70/ 11.10 cm/s Bi Subclavian Tri 126.5 127.5 5 0 CONCLUSIONS Right ICA stenosis <50%. Mild atheromatous plaque right carotid bulb/ICA. Left ICA stenosis <50%. Mild atheromatous plaque left carotid bulb/ICA. Normal antegrade Doppler flow noted in the right vertebral artery. Normal antegrade Doppler flow noted in the left vertebral artery. Celso Chaudhry MD (Electronically Signed) Final Date: 18 January 2023 13:56 S
== END 2023-01-18 12:03 | disposition home or self-care (01) ==
LOC: RAD 12:04
PROVIDERS: PCP Electrodiagnostic Medicine; Visit Provider Internal Medicine Cardiovascular Disease
DX: I65.23 Occlusion and stenosis of bilateral carotid arteries (principal); R06.09 Other forms of dyspnea; I34.0 Nonrheumatic mitral (valve) insufficiency; I07.1 Rheumatic tricuspid insufficiency; I37.1 Nonrheumatic pulmonary valve insufficiency; I35.0 Nonrheumatic aortic (valve) stenosis
CPT/HCPCS: 93306; 93880

== ENCOUNTER → 2023-04-28 09:40 | Outpatient (BNVA) | payer MEDICARE, SELFPAY | PROVIDERS: PCP Electrodiagnostic Medicine; Visit Provider Internal Medicine Cardiovascular Disease | DX: R06.09 Other forms of dyspnea (principal); R94.39 Abnormal result of other cardiovascular function study; I35.0 Nonrheumatic aortic (valve) stenosis; I10 Essential (primary) hypertension; I77.9 Disorder of arteries and arterioles, unspecified; I73.9 Peripheral vascular disease, unspecified | CPT/HCPCS: 99214 ==

== ENCOUNTER → 2023-04-28 10:56 | Outpatient (BNVA) | payer MEDICARE, SELFPAY | PROVIDERS: PCP Electrodiagnostic Medicine; Visit Provider Internal Medicine Cardiovascular Disease | DX: R07.9 Chest pain, unspecified (principal); R00.1 Bradycardia, unspecified | CPT/HCPCS: 93005 ==

== ENCOUNTER 2023-06-16 10:16 | Outpatient (CLI) | payer MEDICARE, OTHER, SELFPAY ==
--- NOTE | 2023-06-16 | ECG_ITS ---
[facility] Test Date: 2023-06-16 Pat Name: Loree Read Department: Room: Gender: Female Insurance Claims Assistant: : 1945 Requested By: Ese Gaston Order Number: [id number] Belinda MD: Ese Gaston M.D. Interpretive Statements NAME OF STUDY: LEXISCAN SESTAMIBI STRESS TEST INDICATION: /SOB, PROCEDURE: At the baseline, the EKG revealed sinus rhythm with a poor R wave progression. Possible old anteroseptal RI. Nonspecific ST-T changes in the inferolateral leads. the baseline heart was 68 bpm with a blood pressue of 188/79 mm of Hg Lexiscan was infused over a period of 20 seconds. A total of 0.4 milligrams of Lexiscan was infused. The stress phase was continued for a total of 5 minutes. Heart rate at the end of the stress phase was 84 bpm with a blood pressure 154/72 mm of Hg. The EKG at the peak infusion revealed no significant changes. Sestamibi was injected 20 seconds after the Lexiscan infusion. Heart rate at the end of the recovery phase was 88 bpm with a blood pressure of 164/76 mm of Hg. CONCLUSION: 1. No significant EKG changes with the LexiScan infusion 2. No LexiScan induced chest pain or cardiac arrhythmia 3. Normal blood pressure and heart rate response 4. Sestamibi/sestamibi perfusion scan pending; see separate report. Electronically Signed On 06-24-2023 21:00:10 AUTOMOTIVE REFINISHER by Ese Gaston M.D. [id number]
[2023-06-16 10:34] VITALS: BMI 29.9
--- NOTE | 2023-06-16 10:34 | NMCV_ITS ---
NM jose cruz perf SPECT r/s* [id number] Loree Read Age: 78 Gender: F : 1945 Exam Date: 06/16/2023 11:23 Ordering Phys: Ese Gaston MD ([email or web address]) Technologist: FRANKIE Snyder Exam Location: [facility] Indications: SHORTNESS OF BREATH, HYPERTENSION STRESS TEST Please [facility] for [facility] findings IMAGE PROTOCOL Rest/Stress 1 Lexiscan Day Radiopharmaceutical Dose (mCi) Administration Site Administered by Rest: Tc-99m 11.0 IV FRANKIE Snyder Sestamibi Stress:Tc-99m 32.9 IV FRANKIE Vu Sestamibi Rest: 16-Jun-2023 60 Discovery 630 Stress: 16-Jun-2023 30 Discovery 630 0.4mg Lexiscan. Images obtained in supine and prone position. SPECT RESULTS Technical Quality: Excellent Raw Data Analysis: Normal Image Corrections: No attenuation or motion correction applied Summed Stress Score: 5 Summed Rest Score: 4 Summed Difference Score: 1 PERFUSION FINDINGS There is medium sized area of partially reversible perfusion defect noted in inferolateral wall. This is consistent with medium sized area of prior infarct with significant latesha-infarct ischemia in the left circumflex artery territory. FUNCTIONAL RESULTS (calculated via Gated SPECT) Stress Image LV EF (%): 69 Stress EDV (mL):72 TID: 1.26 Stress ESV (mL):22 FUNCTIONAL FINDINGS: There is normal left ventricular systolic function. TID ratio is elevated. IMPRESSIONS 1. Abnormal myocardial perfusion imaging with medium sized area of prior infarct with significant latesha-infarct ischemia noted in the left circumflex artery territory. 2. LV systolic function is normal with EF of 69%. TID ratio is elevated. Ronald Celestin MD (Electronically Signed) Final Date: 16 June 2023 16:35 S
[2023-06-16] MEDS: regadenoson 0.4 Mg/5 ml Syringe IVP (12:07)
[2023-06-16 12:35] VITALS: BP 164/76; PULSE 89
== END 2023-06-16 10:17 | disposition home or self-care (01) ==
LOC: CDL 10:17
PROVIDERS: PCP Electrodiagnostic Medicine; Visit Provider Internal Medicine Cardiovascular Disease
DX: I35.0 Nonrheumatic aortic (valve) stenosis (principal); R06.02 Shortness of breath; I10 Essential (primary) hypertension; I25.2 Old myocardial infarction
CPT/HCPCS: 36415; 78452; 93017; 96374; A9500; J2785

== ENCOUNTER 2023-07-20 12:35 | Outpatient (CLI) | payer MEDICARE, SELFPAY ==
--- NOTE | 2023-07-20 13:00 | USCV_ITS ---
Loree Read Age: 78 Gender: F : 1945 Exam Date: 07/20/2023 12:48 Ordering Phys: Ese Gaston MD ([email or web address]) Technologist: CT Exam Location: [facility] [place] Indication: htn BP: 167 / 75 HR: 63 Rhythm: Sinus Technical Quality: Adequate MEASUREMENTS (Male / Female) Normal Values 2D ECHO LV Chamber Size 3.9 cm RV Chamber Size 4.0 cm LVOT Diameter 2.1 cm LV Ejection Fraction MOD 2C 60.6 % LV Ejection Fraction 2C AL 60.7 % LA Diameter 4.0 cm LA Width 4.0 cm LA Height 5.7 cm RA Width 4.1 cm RA Height 5.3 cm Aorta at Sinotubular Diameter 2.1 cm IVC Diameter 1.7 cm M-MODE Aortic Annulus Diameter 3.1 cm LA Ao Ratio MM 1.4 MV E Point Septal Separation 0.9 cm DOPPLER AV Peak Velocity 355.0 cm/s LVOT Peak Velocity 129.0 cm/s AV Area Cont Eq vti 1.2 cm squared AV Area Cont Eq pk 1.3 cm squared MV E' Velocity 6.0 cm/s TR Peak Velocity 147.0 cm/s TR Peak Gradient 8.6 mmHg TV Peak E Velocity 72.0 cm/s Right Atrial Pressure 3.0 mmHg Pulmonary Artery Systolic Pressu 11.6 mmHg PV Peak Velocity 88.0 cm/s FINDINGS Left Ventricle Normal left ventricular size and systolic function, EF 59 %. Moderate left ventricular hypertrophy. No regional wall motion abnormalities. Grade III/IV diastolic dysfunction (restrictive filling pattern), severely elevated filling pressures. Right Ventricle The right ventricle is normal in size and function. Right Atrium Normal right atrial size. Left Atrium Mildly increased left atrial size. Mitral Valve Moderately thickened mitral valve. Moderate mitral annular calcification. Mild-moderate mitral valve regurgitation. Aortic Valve Moderate aortic valve calcification. Moderate aortic valve stenosis, mean gradient 30.2 mmHg, BRIAN 1.2 cm squared. Peak velocity of 3.55 m/s with a peak gradient of 50 and a mean gradient of 30 mmHg. The valve index of 0.58 Tricuspid Valve Trace tricuspid valve regurgitation. Estimated pulmonary artery peak systolic pressure, possibly within normal limits Pulmonic Valve Pulmonic valve not well visualized. Pericardium No pericardial effusion. Aorta Normal aortic annulus size. IVC Normal inferior vena cava. CONCLUSIONS 1. Normal left ventricular size and systolic function, EF 59 %. Moderate left ventricular hypertrophy. No regional wall motion abnormalities. Grade III/IV diastolic dysfunction (restrictive filling pattern), severely elevated filling pressures. 2. Moderate aortic valve calcification. Moderate aortic valve stenosis, mean gradient 30.2 mmHg, BRIAN 1.2 cm squared. Peak velocity of 3.55 m/s with a peak gradient of 50 mmHg. The valve index of 0.58. 3. Moderately thickened mitral valve. Moderate mitral annular calcification. Mild-moderate mitral valve regurgitation. 4. Mildly increased left atrial size. 5. No intracardiac masses. 6. No pericardial effusion Compared to the study from 01/18/2023, there may not be a significant change Dr Ese Gaston MD FAC (Electronically Signed) Final Date: 23 July 2023 08:45 S
--- NOTE | 2023-07-20 13:18 | USCV_ITS ---
Loree Read Age: 78 Gender: F : 1945 Exam Date: 07/20/2023 13:27 Ordering Phys: Ese Gaston MD ([email or web address]) Technologist: RADHA [place] [facility] [place]: PAD Risk Factors: Previous Vascular Surgery: RIGHT LEFT BP: 184.0 / 85.00 BP: 172.0/ 79.00 0 0 Waveform Velocity (cm/s) Velocity (cm/s) Waveform Biphasic 79.9 Iliac Prox 77.1 Biphasic Biphasic 97.2 Iliac Mid 73.9 Biphasic Biphasic 94.0 Iliac Distal 136.7 Biphasic Biphasic 87.2 SCRAP PREPARER 77.4 Biphasic Biphasic 65.3 SFA Prox 61.7 Biphasic Biphasic 54.4 SFA Mid 118.0 Biphasic Biphasic 83.9 SFA Dist 132.7 Biphasic Biphasic 81.3 POP 41.2 Biphasic Biphasic 76.1 GLOBAL EXPANSION SALES DIRECTOR 44.7 Biphasic Monophasic 13.8 DPA 15.5 Monophasic 0.8 LEIGH 0.8 FINDINGS Resting LEIGH of 0.8 bilaterally. Biphasic arterial Doppler waveforms bilaterally and most of the arterial segments as mentioned above Mild diffuse dense plaques in the iliac and femoral arteries bilaterally CONCLUSIONS 1. Abnormal resting ABIs bilaterally,'s history of mild peripheral artery disease. 2. Mild diffuse dense plaques in the iliac and femoral arteries bilaterally. Compared to the study from 06/14/2019, the LEIGH are decreased bilaterally Dr Ese Gaston MD [facility] (Electronically Signed) Final Date: 22 July 2023 12:22 S
== END 2023-07-20 12:36 | disposition home or self-care (01) ==
LOC: RAD 12:36
PROVIDERS: PCP Electrodiagnostic Medicine; Visit Provider Internal Medicine Cardiovascular Disease
DX: I73.9 Peripheral vascular disease, unspecified (principal); I10 Essential (primary) hypertension
CPT/HCPCS: 93306; 93925

== ENCOUNTER 2023-08-25 11:06 | Outpatient (CLI) | payer MEDICARE, SELFPAY ==
[2023-08-25 11:55] LABS: Chol HDL Ratio 3.98 mg/dL (0.0-4.40); Cholesterol 183 mg/dL (0-200); HDL Cholesterol 46 mg/dL (60-100); LDL Cholesterol Calculated 111 mg/dL (50-129); LDL HDL Ratio 2.41 RATIO (0.00-3.22); Triglycerides 130 mg/dL (0-150)
== END 2023-08-25 11:07 | disposition home or self-care (01) ==
LOC: LAB 11:08
PROVIDERS: PCP Electrodiagnostic Medicine; Visit Provider Internal Medicine Cardiovascular Disease
DX: I10 Essential (primary) hypertension (principal)
CPT/HCPCS: 36415; 80061

== ENCOUNTER → 2024-01-05 12:50 | Outpatient (BNVA) | payer MEDICARE, SELFPAY | PROVIDERS: PCP Electrodiagnostic Medicine; Referring Provider Electrodiagnostic Medicine; Visit Provider Orthopaedic Surgery | DX: M48.062 Spinal stenosis, lumbar region with neurogenic claudication (principal); M54.9 Dorsalgia, unspecified | CPT/HCPCS: 72110; 99214 ==

== ENCOUNTER 2024-01-24 09:11 | Outpatient (CLI) | payer MEDICARE, SELFPAY ==
--- NOTE | 2024-01-24 09:30 | MR_ITS ---
WS: [id number] MRI LUMBAR SPINE NONCONTRAST HISTORY: Low back pain rating down both legs. Greater on the RIGHT. COMPARISON: 03/23/2022 TECHNIQUE: Sagittal and axial multisequence imaging is submitted. Straightening and slight reversal of the normal cervical lordosis. Disc osteophyte disease contacting the ventral cervical cord at C5-6. Disc bases are narrowed and desiccated throughout. Disc bulges an d osteophytes in the thoracic and cervical spine. Mild ventricular dilatation noted on this localizer image of the brain. Mild curvature and scoliosis. L4 anterolisthesis of 2 mm. 2 mm retrolisthesis of L1. Disc bases are narrowed and desiccated. No acute fracture. Since the prior study there is a Schmorl's node along the inferior endplate of L3 but no edema. There is a very small amount of marrow edema in the posterior elements of L5. Conus terminates normally at L1-2 disc level. L1-L2: Moderate annular disc bulging and osteophytic ridging. Narrowing of the LEFT subarticular rece ss. Subarticular recess encroachment has progressed since the prior study. Moderate displacement of t he LEFT traversing L2 nerve root. Moderate bilateral foraminal stenosis. L2-L3: Mild annular disc bulging with facet and ligamentum flavum hypertrophy. Tiny LEFT foraminal di sc protrusion encroaching upon the exiting LEFT L2 nerve root is again identified. Minimal stenosis. L3-L4: Mild diffuse annular disc bulging with osteophytosis. Ligamentum flavum and facet arthritis amaya s slightly increased. Disc now contacts the traversing L4 nerve roots in the subarticular recess. Mil d bilateral foraminal stenosis. L4-L5: Diffuse annular disc bulging. Progression of facet joint arthritis, greatest on the RIGHT. The re is now greater encroachment upon the RIGHT traversing L5 nerve root. Progression of central stenos is which is moderate along with moderate subarticular recess and RIGHT foraminal stenosis. L5-S1: Mild annular disc bulging with mild contact on the S1 nerve roots as noted on the prior study. Slightly greater contact on the RIGHT S1 nerve root. Moderate facet arthritis. No foraminal stenosis . MR/MR lumbar spine wo con* [id number] IMPRESSION: 1. Mild progression of degenerative disc disease and stenoses since 03/23/2022. 2. L4-5: Increasing facet joint arthropathy encroaching upon the RIGHT nabor ing L5 nerve root. Progression of central stenosis which is now moderate. Moder ate subarticular recess and RIGHT foraminal stenosis. 3. L1-2: Moderate bilateral foraminal stenosis and subarticular recess encroac hment. Moderate displacement of the LEFT traversing L2 nerve root, mild progres juaquin. 4. L2-3: No stenosis. Tiny LEFT foraminal disc protrusion is unchanged. 5. L3-4: Increase in the ligamentum flavum and facet arthritis with disc now c ontacting the traversing L4 nerve roots in the subarticular recesses. Mild suba rticular recess and foraminal stenosis. 6. L5-S1: Mild disc encroachment upon the S1 nerve roots, RIGHT greater than L EFT.
== END 2024-01-24 09:12 | disposition home or self-care (01) ==
LOC: RAD 09:11
PROVIDERS: PCP Electrodiagnostic Medicine; Visit Provider Orthopaedic Surgery
DX: M51.36 Other intervertebral disc degeneration, lumbar region (principal); M48.061 Spinal stenosis, lumbar region without neurogenic claudication; M47.816 Spondylosis without myelopathy or radiculopathy, lumbar region; M51.37 Other intervertebral disc degeneration, lumbosacral region; M47.817 Spondylosis without myelopathy or radiculopathy, lumbosacral region; M25.78 Osteophyte, vertebrae; M51.34 Other intervertebral disc degeneration, thoracic region; M50.30 Other cervical disc degeneration, unspecified cervical region; M41.9 Scoliosis, unspecified; M43.16 Spondylolisthesis, lumbar region; M51.46 Schmorl's nodes, lumbar region
CPT/HCPCS: 36415; 72148; 80053; 81003; 85025; 99214

== ENCOUNTER → 2024-02-01 09:48 | Outpatient (BNVA) | payer MEDICARE, SELFPAY | PROVIDERS: PCP Electrodiagnostic Medicine; Visit Provider Family Medicine | DX: Z01.818 Encounter for other preprocedural examination (principal) | CPT/HCPCS: 93005 ==

== ENCOUNTER → 2024-02-06 16:14 | Outpatient (BNVA) | payer MEDICARE, SELFPAY | PROVIDERS: PCP Electrodiagnostic Medicine; Visit Provider Specialist | DX: M17.0 Bilateral primary osteoarthritis of knee (principal); Z48.89 Encounter for other specified surgical aftercare | CPT/HCPCS: 73560; 73565; 99213 ==

== ENCOUNTER 2024-02-27 09:09 | Day surgery (SDC) | payer MEDICARE, SELFPAY ==
[2024-02-27] VITALS (10 sets, daily range): BP systolic 132–167; BP diastolic 66–84; PULSE 67–98; RESP 12–16; TEMP 36.4–36.6; O2SAT 90–98
--- NOTE | 2024-02-27 09:46 | P.ANESASSM_ITS ---
Pre-Anesthetic Assessment Height/Weight: Height 1.7 m Weight 83.915 kg Temp Pulse Resp BP Pulse Ox O2 Del Method 97.9 F 68 16 153/81 94 Room Air 02/27/24 09:31 02/27/24 09:31 02/27/24 09:31 02/27/24 09:31 02/27/24 09:31 02/27/24 09:31 Preop Diagnosis: Lumbar stenosis with neurogenic claudication Operation Date: 02/27/24 11:05 Proposed Procedures p Lumbar Spine Decompression Lumbar Decompression(Not Applicable) - Dar Mc DO Last intake: Intake Last Liquid Date 02/26/24 Last Liquid Time 20:00 Last Solid Date 02/26/24 Last Solid Time 20:00 Social No alcohol and No tobacco Exam alert, oriented x 3, clear to auscultation bilaterally and regular rate & rhythm Airway Submandibular: within normal limits Cervical ROM: within normal limits Mallampati: Class I Pulmonary None reported CV/HEM Hypertension and Murmur mod with normal LVEF on echo 07/2023 None reported Hepatic None reported GI None reported Metabolic Diabetes [place]itus [facility] [place] None reported Neuropsych None reported Anesthetic Plan ASA status: 3 Anesthesia: General Risk of > 500 ml blood loss (7ml/kg in children): No Medications/Allergies Home Medications Medication Instructions Recorded Confirmed Last Taken Type aspirin 81 mg tablet,delayed 81 mg PO DAILY 08/27/19 02/24/24 05/14/22 History release cetirizine 10 mg capsule (Allergy 10 mg PO DAILY 08/27/19 02/27/24 02/26/24 History Relief (cetirizine)) fluticasone propionate 50 1 spray intranasal BID 08/27/19 02/27/24 02/26/24 History mcg/actuation nasal spray,suspension (Flonase Allergy Relief) lysine 1,000 mg tablet 1,000 mg PO BID 08/27/19 02/27/24 02/26/24 History omeprazole magnesium 20 mg 20 mg PO DAILY 08/27/19 02/27/24 02/26/24 History tablet,delayed release multivitamin 1 tab PO DAILY 11/29/19 02/27/24 02/26/24 History magnesium 200 mg tablet 400 mg PO BID 05/14/20 02/27/24 02/26/24 History tramadol 50 mg tablet 50 mg PO Q6H PRN Pain #60 tabs 06/04/20 02/27/24 02/27/24 Rx meloxicam 15 mg tablet 15 mg PO DAILY 03/10/21 02/24/24 02/18/24 History omega-3 fatty acids 1,000 mg 1,000 mg PO BID 03/10/21 02/24/24 02/18/24 History capsule (Fish Oil Concentrate) methocarbamol 500 mg tablet 500 mg PO QID PRN Muscle Spasm #60 05/25/22 02/27/24 02/26/24 Rx tabs valsartan 160 1 tab PO DAILY #90 tabs 07/08/23 02/27/24 02/26/24 Rx mg-hydrochlorothiazide 12.5 mg tablet amlodipine 5 mg tablet 5 mg PO DAILY #30 tabs 10/04/23 02/27/24 02/26/24 Rx carvedilol 12.5 mg tablet 12.5 mg PO BID #180 tabs 11/04/23 02/27/24 02/27/24 Rx rosuvastatin 5 mg tablet (Crestor) 5 mg PO DAILY #90 tabs 11/04/23 02/27/24 02/26/24 Rx glipizide 5 mg tablet, extended 10 mg PO DAILY 02/01/24 02/27/24 02/26/24 History release 24 hr levothyroxine 100 mcg tablet 100 mcg PO DAILY 02/01/24 02/27/24 02/26/24 History (Synthroid) melatonin 10 mg capsule 10 mg PO DAILY 02/01/24 02/27/24 02/26/24 History Allergies Allergy/AdvReac Type Severity Reaction Status Date / Time quinine Allergy Severe Unknown Verified 02/24/24 11:51 Quinidine-Quinine Analogues Allergy Unknown Unknown Verified 02/24/24 11:51 (Cincho [Quinidine-Quinine Analogues (Cinchona Alkaloids)] Sulfa (Sulfonamide AdvReac Intermediate ADR-Gastrointestinal Verified 02/24/24 11:51 Antibiotics) Upset [facility] Anesthesia Medical History Essential hypertension Aortic stenosis Arthritis of knee, right Right knee DJD Hyperthyroidism GERD (gastroesophageal reflux disease) Hypertension Right foot pain Guadarrama's neuroma of right foot Status post angiography of extremity Non-pressure chronic ulcer of other part of right foot with fat layer exposed PVD (peripheral vascular disease) Critical ischemia of foot Primary osteoarthritis of right knee Right total knee arthroplasty on May 20, 2020. Primary osteoarthritis of left knee Left total knee arthroplasty on September 18, 2019. 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, right History of peripheral arterial disease Social History Smoking and tobacco/nicotine status: never used tobacco/nicotine Alcohol intake: never Substance/Drug Use: never Current occupation: one step x 2 into house Data Anesthesia Cardiac Studies: Echocardiogram 07/20/23 Echocardiogram Ultrasound 07/14/20 Sestamibi Stress Test (Cardiology) 06/16
[2024-02-27] MEDS: sodium chloride 0.9% 1,000 ML 30 ML IV (09:50)
[2024-02-27 09:56] LABS: Glucose Point of Care 168 mg/dL (70-110)
--- NOTE | 2024-02-27 10:28 | W.PM.OPSUD ---
Surgery/Procedure H&P Update DATE OF PROCEDURE: February 27, 2024 DATE H&P PERFORMED: 02/01/24 H&P UPDATE INFORMATION: I have reviewed H&P completed within last 30 days, I have examined patient prior to procedure and No changes to prior documentation PREOP DIAGNOSIS: Lumbar stenosis with neurogenic claudication PLANNED PROCEDURE: Operation Date: 02/27/24 11:05 Proposed Procedures p Lumbar Spine Decompression Lumbar Decompression(Not Applicable) - Dar Mc DO
[2024-02-27] MEDS: ceFAZolin 2,000 MG in sodium chloride 0.9% (plus) 50 ML 100 MG IV (10:51)
[2024-02-27] MEDS: lidocaine-epi 1% 20 mL INJ INJECTION (11:31)
--- NOTE | 2024-02-27 12:40 | PM.OP ---
Operative Report Date of procedure: February 27, 2024 Pre-op diagnosis: Lumbar stenosis with neurogenic claudication Post-op diagnosis: same Procedure done: 1. L3-4 laminectomy with partial facetectomy 2. L4-5 laminectomy with partial facetectomy Surgeon: Dar Mc DO Procedure: 1. L3-4 laminectomy with partial facetectomy 2. L4-5 laminectomy with partial facetectomy Patient is brought to the operative suite. After undergoing anesthesia they are placed in the prone position. All areas of impingement are well padded. Patient is then prepped and draped in the normal sterile fashion. A skin incision is made over the L3/4 level. This is confirmed under c-arm guidance. A series of dilators are passed and the tubular retractor is docked on the L3 lamina. A bovie is used to clear the soft tissue off the lamina and the L 3/4 facet joint. A high speed catarina is then used to perform the laminectomy and take down the medial aspect of the L 3/4 facet joint. A kerrison rongeure was then used to take down the remaining lamina and smooth the edge of the laminectomy up to the point where the ligamentum flavum attaches. Attention was then brought to the medial aspect of the facet joint. The remaining medial aspect of the superior and inferior aspect of the facet joint were taken down with the kerrison from the pedicle of L3 to L 4. The facet joint had significant hypertrophy. Attention was then brought to the Ligamentum Flavum. The ligament was taken down from the lamina of L3 to L4 and out medially to the remaining facet joint. The ligament was thick. The dura was then exposed. The dura was in good repair. The L3 nerve was then traced with a curette out the L3/4 foramen and found to be adequately decompressed. The L4 nerve was traced with a curette around the L4 pedicle. The lateral recess was opened with a kerrison helping to further decompress the L4 nerve. Wound is then irrigated copiously with saline and surgiflo is used to stop any bleeding. The tubular retractor is removed and the A skin incision is made over the L4/5 level. This is confirmed under c-arm guidance. A series of dilators are passed and the tubular retractor is docked on the L4 lamina. A bovie is used to clear the soft tissue off the lamina and the L 4/5 facet joint. A high speed catarina is then used to perform the laminectomy and take down the medial aspect of the L 4/5 facet joint. A kerrison rongeure was then used to take down the remaining lamina and smooth the edge of the laminectomy up to the point where the ligamentum flavum attaches. Attention was then brought to the medial aspect of the facet joint. The remaining medial aspect of the superior and inferior aspect of the facet joint were taken down with the kerrison from the pedicle of L4 to L 5. The facet joint had significant hypertrophy. Attention was then brought to the Ligamentum Flavum. The ligament was taken down from the lamina of L4 to L5 and out medially to the remaining facet joint. The ligament was thick and scarred. The dura was then exposed. The dura was in good repair. The L4 nerve was then traced with a curette out the L4/5 foramen and found to be adequately decompressed. The L5 nerve was traced with a curette around the L5 pedicle. The lateral recess was opened with a kerrison helping to further decompress the L5 nerve. Wound is then irrigated copiously with saline and surgiflo is used to stop any bleeding. The tubular retractor is removed and the wound is closed with vicryl and monocryl suture. Glue is then used to protect the wound. A sterile dressing is then placed. Patient was then placed in the supine position and transferred to the PACU in stable condition.
--- NOTE | 2024-02-27 12:47 | XR_ITS ---
WS: [id number] INTRAOPERATIVE TECHNIQUE: 3 Spot fluoroscopic images for intraoperative purposes. FLUOROSCOPY TIME: 4 seconds CLINICAL INFORMATION: decompression, or pic FINDINGS: Localization marker overlying the RIGHT L4-5 and L3-4 interspace dorsally XR/XR lumbar spine 1V [id number] IMPRESSION: Images obtained for intraoperative purposes.
[2024-02-27] MEDS: HYDROcodone-acetaminophen 10-325 mg Tablet 1 TAB PO (13:17)
--- NOTE | 2024-02-27 13:43 | ANE.PACU2 ---
Inpatient post-anesthesia follow up: Airway intact: Yes Vital signs: Temperature 97.6 F Pulse Rate 72 Respiratory Rate 16 Blood Pressure 143/70 Pulse Oximetry 91 Oxygen Delivery Me thod Room Air Oxygen Flow Rate 1 Fraction of Inspir ed Oxygen Hydration adequate: Yes Nausea and vomiting: No Pain level: controlled Mental status: Baseline Additional Comments: no apparent anesthetic complications noted
== END 2024-02-27 13:50 | disposition home or self-care (01) ==
PROVIDERS: PCP Electrodiagnostic Medicine; Visit Provider Orthopaedic Surgery
PROC: (CPT 63005; principal; 2024-02-27 11:05)
DX: M48.062 Spinal stenosis, lumbar region with neurogenic claudication (principal); I10 Essential (primary) hypertension; E11.9 Type 2 diabetes mellitus without complications; Z79.82 Long term (current) use of aspirin; E05.90 Thyrotoxicosis, unspecified without thyrotoxic crisis or storm
CPT/HCPCS: 63047; 63048; 36416; 72020; 76000; 82962; J0131; J0690; J1100; J2371; J2405; J2704; J2710; J3010; J3490; J7030

== ENCOUNTER → 2024-03-22 13:59 | Outpatient (BNVA) | payer MEDICARE, SELFPAY | PROVIDERS: PCP Electrodiagnostic Medicine; Visit Provider Orthopaedic Surgery | DX: Z98.890 Other specified postprocedural states (principal) | CPT/HCPCS: 99024 ==

== ENCOUNTER → 2024-04-19 13:50 | Outpatient (BNVA) | payer MEDICARE, SELFPAY | PROVIDERS: PCP Electrodiagnostic Medicine; Visit Provider Orthopaedic Surgery | DX: M48.062 Spinal stenosis, lumbar region with neurogenic claudication (principal) | CPT/HCPCS: 99024 ==

== ENCOUNTER 2024-04-25 13:46 | Outpatient (CLI) | payer MEDICARE, SELFPAY ==
--- NOTE | 2024-04-25 14:24 | XR_ITS ---
WS: [id number] DEXA (DUAL ENERGY X-RAY ABSORPTIOMETRY) Bone mineral density was performed using a Etelos machine. HISTORY: POSTMENOPAUSAL COMPARISON: None available. Lumbar spine BMD (L1-L4): 1.299 g/cm2 T score: 1.0 Z score: 2.2 Total hip BMD: Left: 0.962 g/cm2. T score: -0.4 Z score: 1.1 Right: 0.900 g/cm2. T score: -0.9 Z score: 0.6 10 year probability of a major osteoporotic fracture is 11.9%. XR/XR DEXA axial skeleton* [id number] IMPRESSION: NORMAL BONE MINERAL DENSITY based upon the WHO classification for females.
== END 2024-04-25 13:47 | disposition home or self-care (01) ==
LOC: RAD 13:46
PROVIDERS: PCP Electrodiagnostic Medicine; Visit Provider Electrodiagnostic Medicine
DX: Z78.0 Asymptomatic menopausal state (principal)
CPT/HCPCS: 77080

== ENCOUNTER → 2024-05-01 13:16 | Outpatient (BNVA) | payer MEDICARE, SELFPAY | PROVIDERS: PCP Electrodiagnostic Medicine; Visit Provider Orthopaedic Surgery | DX: Z98.890 Other specified postprocedural states (principal) | CPT/HCPCS: 99024 ==

== ENCOUNTER → 2024-06-05 13:30 | Outpatient (BNVA) | payer MEDICARE, SELFPAY | PROVIDERS: PCP Electrodiagnostic Medicine; Visit Provider Orthopaedic Surgery | DX: Z98.890 Other specified postprocedural states (principal) | CPT/HCPCS: 99024 ==

== ENCOUNTER 2024-06-21 12:56 | Outpatient (CLI) | payer MEDICARE, SELFPAY ==
--- NOTE | 2024-06-21 13:00 | MR_ITS ---
WS: [id number] MRI LUMBAR SPINE NONCONTRAST HISTORY: back pain COMPARISON: 01/24/2024 TECHNIQUE: Sagittal and axial multisequence imaging is submitted. Cervical and thoracic spondylosis. No high-grade stenosis. L1 retrolisthesis by 2.6 mm. 2 mm anterolisthesis of L4. Mild disc space narrowing and desiccation th roughout the lumbar spine. New postoperative changes are noted in the RIGHT paraspinal muscles and facet joints at L3-4 and L4-5 . Conus terminates normally at L1-2 disc level. L1-L2: Mild annular disc bulging and osteophytic ridging. LEFT paracentral and subarticular disc prot rusion. Moderate displacement of the LEFT traversing L2 nerve root. Facet joint arthritis greatest on the LEFT. L2-L3: Mild disc bulging. Mild bilateral foraminal stenosis. No progression. L3-L4: Mild annular disc bulging with marked ligamentum flavum and facet arthritis. Fluid in the face t joints. RIGHT hemilaminectomy defect is new. Mild central, bilateral subarticular recess and forami nal stenosis has not progressed. Debridement of the ligamentum flavum on the RIGHT. Mild central, alma ateral subarticular recess and foraminal stenosis has not progressed. L4-L5: Mild annular disc bulging with ligamentum flavum and facet arthritis. Fluid in the facet joint s. RIGHT hemilaminectomy defect. Moderate central, subarticular recess and RIGHT foraminal stenosis. Mild LEFT foraminal stenosis. No progression. L5-S1: Mild annular disc bulging with mild contact on the S1 nerve roots, RIGHT greater than LEFT. No high-grade stenosis. Similar to the prior study. Bilateral facet joint arthritis. MR/MR lumbar spine wo con* [id number] IMPRESSION: 1. Postoperative soft tissue changes on the RIGHT at L3-4 and L4-5 from breanna ctomy defects. Residual paraspinal muscle edema. Increased fluid in the facet j oints at L3-4 and L4-5 as compared to the prior study. Suspect acute synovitis. 2. Minimal progression of the degenerative disc disease and stenoses since the prior study. 3. L1-2: LEFT paracentral and subarticular recess disc protrusion. Mild centra l, LEFT paracentral and subarticular recess encroachment. 4. L3-4: Mild central, bilateral subarticular recess and foraminal stenosis. 5. L5-S1: Mild disc contact on the S1 nerve roots, RIGHT greater than LEFT.
== END 2024-06-21 12:57 | disposition home or self-care (01) ==
LOC: RAD 12:57
PROVIDERS: PCP Electrodiagnostic Medicine; Visit Provider Orthopaedic Surgery
DX: M51.26 Other intervertebral disc displacement, lumbar region (principal); M99.63 Osseous and subluxation stenosis of intervertebral foramina of lumbar region; M48.061 Spinal stenosis, lumbar region without neurogenic claudication; M47.898 Other spondylosis, sacral and sacrococcygeal region
CPT/HCPCS: 72148; 99214

== ENCOUNTER 2025-03-20 19:46 | Emergency (ER) | payer MEDICARE, SELFPAY ==
[2025-03-20 19:46] VITALS: BP 162/95; PULSE 98; RESP 16; TEMP 36.8; O2SAT 89; BMI 29.4
--- NOTE | 2025-03-20 19:46 | XRR_ITS ---
PROCEDURE INFORMATION: Exam: XR Right Hip Exam date and time: 03/20/2025 7:49 PM Age: 79 years old Clinical indication: Injury or trauma; Fall; Blunt trauma (contusions or hematomas); Right; Hip TECHNIQUE: Imaging protocol: Radiologic exam of the right hip. Views: 1 view hip with pelvis when performed. COMPARISON: MR lumbar spine wo con* [id number] 06/21/2024 1:15 PM FINDINGS: Bones/joints: Fracture of the proximal femur with apex lateral angulation, minimal distraction. Moderate degenerative changes of hip. Surgical clips in the pelvis. [id number] degenerative changes of SI joint. Soft tissues: Unremarkable. XR/XR hip RT 2-3V wo/w pel* [id number] IMPRESSION: Fracture of the proximal femur with apex lateral angulation, minimal distraction.
--- NOTE | 2025-03-20 19:46 | XRR_ITS ---
PROCEDURE INFORMATION: Exam: XR Chest Exam date and time: 03/20/2025 7:53 PM Age: 79 years old Clinical indication: Injury or trauma; Fall; Blunt trauma (contusions or hematomas) TECHNIQUE: Imaging protocol: Radiologic exam of the chest. Views: 1 view. COMPARISON: CR XR chest 2V* [id number] 09/13/2019 9:52 AM FINDINGS: Lungs: Unremarkable. No consolidation. Pleural spaces: Unremarkable. No pleural effusion. No pneumothorax. Heart/Mediastinum: Unremarkable. No cardiomegaly. Vasculature: Aortic atherosclerosis. Tortuosity of the aorta. Valve or stent in the region of the aortic valve. Bones/joints: Unremarkable. XR/XR chest 1V portable [id number] IMPRESSION: No definite acute fracture. No pneumothorax or definite pulmonary contusion.
--- NOTE | 2025-03-20 19:50 | ED_ITS ---
HPI - Fall 2 General: Chief Complaint: Fall Stated Complaint: fall , loc Time Seen by Provider: 03/20/25 19:46 Source: patient and EMS Mode of arrival: EMS Limitations: no limitations History of Present Illness: 79-year-old female who states that she w as carrying some eggs and she felt slightly head and then fell states she fell on her right side she denies any loss conscious denies any head denies any chest pain. Patient states that she did hit her right hip has right hip pain Associated symptoms-after fall: Denies abdominal pain, chest pain, headache(s) or neck pain Related Data Home Medications ?Medication ?Instructions ?Recorded ?Confirmed aspirin 81 mg tablet,delayed 81 mg PO DAILY 08/27/19 1 08/21/23 release cetirizine 10 mg capsule (Allergy 10 mg PO DAILY 08/2706/21/24 Relief (cetirizine)) fluticasone propionate 50 1 spray intranasal BID 08/2706/21/24 mcg/actuation nasal spray,suspension (Flonase Allergy Relief) lysine 1,000 mg tablet 1,000 mg PO BID 08/27/1903/07 omeprazole magnesium 20 mg 20 mg PO DAILY 08/27/1903/07 tablet,delayed release multivitamin 1 tab PO DAILY 11/29/1903/07 magnesium 200 mg tablet 400 mg PO BID 05/14/2006/21 meloxicam 15 mg tablet 15 mg PO DAILY 03/10/2103/07 omega-3 fatty acids 1,000 mg 1,000 mg PO BID 03/10/21 06/21/24 capsule (Fish Oil Concentrate) glipizide 5 mg tablet, extended 10 mg PO DAILY 4 06/21/24 release 24 hr levothyroxine 100 mcg tablet 100 mcg PO DAILY 02/01/24 06/21/24 (Synthroid) melatonin 10 mg capsule 10 mg PO DAILY 02/01/2403/07 Previous Rx's ?Medication ?Instructions ?Recorded tramadol 50 mg tablet 50 mg PO Q6H PRN Pain #60 ta bs 06/04/20 methocarbamol 500 mg tablet 500 mg PO QID PRN Muscle S pasm #60 05/25/22 tabs carvedilol 12.5 mg tablet 12.5 mg PO BID #180 tabs 03/ 22/24 rosuvastatin 5 mg tablet (Crestor) 5 mg PO DAILY #90 t abs 11/04/23 amlodipine 5 mg tablet See Rx Instructions .Route 0 03/22/24 .COMPLEX #90 tabs valsartan 160 See Rx Instructions .Route 0 05/02/24 mg-hydrochlorothiazide 12.5 mg .COMPLEX #90 tabs tablet Allergies Allergy/AdvReac Type Severity Reaction Status Date / Time quinine Allergy Severe Unknown Verified 06/21/24 14:34 Quinidine-Quinine Analogues Allergy Unknown Unknown Verified 06/21/24 14:34 (Cincho (Quinidine-Quinine Analogues ([place] Alkaloids)) Sulfa (Sulfonamide AdvReac Intermediate ADR-Gastrointestinal Verified 06/21/24 14:34 Antibiotics) Upset Review of Systems 2 Const: Denies: fever(s), chills, body aches or change in appetite ENMT: Denies: throat pain or dental pain Card: Denies: chest pain Resp: Denies: dyspnea GI: Denies: abdominal pain, nausea, vomiting or diarrhea Musc: Reports: extremity pain; Denies: neck pain or back pain Skin/Breast: Denies: rash Neuro: Denies: headache(s) PFSH ED 2 PFSH: Medical History (Updated 03/20/25 @ 20:05 by Johnathan Aviles MD) Essential hypertension Aortic stenosis Arthritis of knee, right Right knee DJD Hyperthyroidism GERD (gastroesophageal reflux disease) Hypertension Right foot pain Guadarrama's neuroma of right foot Status post angiography of extremity Non-pressure chronic ulcer of other part of right foot with fat layer exposed PVD (peripheral vascular disease) Critical ischemia of foot Primary osteoarthritis of right knee Right total knee arthroplasty on May 20, 2020. Primary osteoarthritis of left knee Left total knee arthroplasty on September 18, 2019. 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, right History of peripheral arterial disease Social History Smoking and tobacco/nicotine status: never used tobacco/nicotine Alcohol intake: never Substance/Drug Use: never Current occupation: one step x 2 into house Physical Exam 2 Const: COMMON NORMALS: no acute distress, patient oriented x3 and healthy appearing HENMT: COMMON NORMALS: normocephalic and atraumatic HEAD & SCALP: n ormocephalic and atraumatic Eye: COMMON NORMALS: conjunctivae normal CONJUNCTIVA: Yes conjunctivae normal Neck/C-Spine: COMMON NORMALS: full ROM and supple Chest: COMMONS NORMALS: normal inspection of the chest Resp: COMMON NORMALS: normal respiratory effort Cardio: COMMON NORMALS: regular rate RATE: regular rate Extremity: NARRATIVE EXTREMITY EXAM: Tenderness to right hip leg is shortened and rotated distal pulses intact Neuro: COMMON NORMALS: patient oriented x3, moves all extremities and no focal motor deficits Psych: COMMON NORMALS: mental status grossly normal, Normal thought process present and cooperative THOUGHT PROCESS: Normal thought process present Skin: COMMON NORMALS: no rashes or lesions noted and no wounds GENERAL SKIN EXAM: no rashes or lesions noted Course 2 Vital Signs: Vital signs: Vital Signs Temperature 98.3 F 03/20/25 19:46 Pulse Rate 98 03/20/25 19:46 Respiratory Rate 16 03/20/25 19:46 Blood Pressure 162/95 03/20/25 19:46 Pulse Oximetry 89 L 03/20/25 19:46 Oxygen Delivery Me thod Nasal Cannula 03/20/25 19:46 Oxygen Flow Rate 2 03/20/25 19:46 MDM - Fall Medical Decision Making Patient presents for right hip fracture from a fall spoke to orthopedist along with hospitalist will admit at this time. Medical Records I reviewed the patient's medical records. Lab Data I reviewed the patient's lab results. 03/20/25 19:53 03/20/25 19:53 Laboratory Results WBC 7.87 10^3/uL (3.29-11.43) 03/20/25 19:53 RBC 6.21 10^6/uL (3.85-5.65) H 03/20/25 19:53 Hgb 15.80 g/dL (11.27-16.99) 03/20/25 19:53 Hct 50.4 % (36-47) H 03/20/25 19:53 MCV 81.2 fl (85-98) L 03/20/25 19:53 MCH 25.4 pg (27-33) L 03/20/25 19:53 MCHC 31.3 g/dL (30-55) 03/20/25 19:53 RDW 15.0 % (12.1-15.1) 03/20/25 19:53 Plt Count 166 10^3/cmm (157-399) 03/20/25 19:53 MPV 11.0 fL (7.4-10.4) H 03/20/25 19:53 Neut % (Auto) 44.7 % 03/20/25 19:53 Lymph % (Auto) 39.6 % 03/20/25 19:53 [place] % (Auto) 10.9 % 03/20/25 19:53 Eos % (Auto) 3.9 % 03/20/25 19:53 Baso % (Auto) 0.4 % 03/20/25 19:53 Neut # (Auto) 3.51 10^3/uL (1.8-7.7) 03/20/25 19:53 Lymph # (Auto) 3.1 10^3/uL (0.8-4.8) 03/20/25 19:53 [place] # (Auto) 0.9 10^3/uL (0.2-0.9) 03/20/25 19:53 Eos # (Auto) 0.3 10^3/uL (0.0-0.8) 03/20/25 19:53 Baso # (Auto) 0.0 10^3/uL (0.0-0.1) 03/20/25 19:53 Nucleated RBC % (auto) 0 % 03/20/25 19:53 Nucleated RBCs # 0.0 /100WBC 03/20/25 19:53 XR interpretation done by ED provider, pending radiology final review ED provider radiology interpretation(s): X-ray right hip fracture over the right hip Discharge Plan Discharge Patient Disposition: Admitted As Inpatient Clinical Impression: Closed fracture of right hip, Fall Condition: Stable Coding Level of Care Code ED Registered Route Associate for Blanche Sal
--- OUTSIDE RECORDS SUMMARY | 2025-03-20 19:50 | XMS_ITS | Patient Health Record ---
Author Organization [facility] Address [address] [place] [address] Care Team Providers Care Asphalt Layer Name Role Phone Jamar MARTIN Atilio Primary Care Provider Unavail able Angel Zurita Unavailable [phone] Migration, Provider Unavailable Unavailable Mando Townsend Unavailable [phone] Scott Moise Unavailable [phone] Marivel Miner Unavailable [phone] [place]Mar[place]ita rodriguezah Unavailable [phone] Jj Malena Unavailable [phone] Edna Wheat Unavailable [phone] Ruth Baron Unavailable [phone] Allergies Allergen (clinical drug ingredient) Drug/Non Drug Allergy documented on EMR Reaction Allergy Type Onset Date Status quinine Quinine Thrombocytopenia Drug Allergy Active Substance with sulfonamide structure and antibacterial mechanism of action (substance) Sulfa Antibiotics nausea and vomiting Drug Allergy Act nannette Results Component Value Reference Range Flag Notes Echo Limited [id number] Reviewed date:09/11/2024 10:55:24 AM Interpretation: Performing Lab: Notes/Report: zzzCT Cardiac Scoring Diagno stic RAD Reviewed date:05/07/2024 04:24:19 PM Interpretation: Performing Lab: Notes/Report: See Below For Report CT Cardiac Scoring Diagnostic RAD Read See Below For Report Echo Complete [id number] Reviewed date:05/10/2024 04:04:09 PM Interpretation: Performing Lab: Notes/Report: [id number]&[email or web address]=iSite CBC Reflex Man Diff [id number], 8 [id number] Reviewed date:05/31/2024 08:04:00 AM Interpretation: Performing Lab: Notes/Report: WBC 6.9 4.5-11.0 X10'3 RBC 5.14 4.00-5.20 X10'6 Hgb 13.9 12.0-16.0 G/DL Hct 45.1 36.0-46.0 % MCV 87.7 80.0-100.0 FL MCH 27.0 27.0-31.0 PG MCHC 30.8 31.0-37.0 G/DL LOW Platelet 167 150-400 X10'3 RDW-SD 42.4 35.0-49.0 FL RDW-CV 13.2 12.2-15.6 % MPV 11.1 9.2-12.0 FL Review Auto Diff Conf WBC Auto Diff--[id number] Reviewed date:05/31/2024 08:04:00 AM Interpretation: Performing Lab: Notes/Report: Added by Discern Rules Neutro Auto% 45.9 40.0-70.0 % Lymph Auto% 38.8 22.0-44.0 % [place] Auto% 9.2 3.0-7.0 % HI Eos Auto% 5.2 2.0-4.0 % HI Baso Auto% 0.6 0.0-1.0 % NRBC% .00 .00-.20 /100 intact WBC's Neutro Abs 3.15 .80-7.70 Absolute Neutrophil Count 3150 NA Lymph Abs 2.66 .10-4.10 [place] Abs .63 .20-1.00 Eos Abs .36 .00-.40 Baso Abs .04 .00-.20 NRBC# .00 .00-.20 X10'3 Imm Gran Abs .02 .00-.10 Imm Gran% .3 .0-.4 % zzzHeart Cath Lt poss PTCA Reviewed date:08/22/2024 12:57:37 PM Interpretation: Performing Lab: Notes/Report: See Below For Report This report was dictated outside of the SoundCloud system. Read See Below For Report Albumin [id number] Reviewed date:09/17/2024 04:13:12 PM Interpretation: Performing Lab: Notes/Report: Albumin 4.8 3.2-4.8 G/DL Prothrombin Time [id number] Reviewed date:09/17/2024 04:13:19 PM Interpretation: Performing Lab: Notes/Report: ProTime 11.0 9.1-11.9 SEC Normal Range : 9.1-11.9 INR 1.04 .90-1.20 Therapeutic Range: 2.0-3.0 Therapaeutic Range for heart valve replacement: 2.5-3.50 Partial Thromboplastin Time [id number] Reviewed date:09/17/2024 04:13:12 PM Interpretation: Performing Lab: Notes/Report: PTT 28.0 22.6-31.8 SEC Therapeutic Range: 60-100. Critical Value Starting at > 100. KESHA ABORH-[id number] Reviewed date:09/17/2024 04:13:12 PM Interpretation: Performing Lab: Notes/Report: KESHA Martinez POS Unknown Echo Complete [id number] Reviewed date:09/17/2024 04:13:19 PM Interpretation: Performing Lab: Notes/Report: Cardiopulmonary Services Name: CLARITZA KELLY Study Date: 09/13/2024 : 1945 Patient Location: [facility] [place] Age: 79 yrs Gender: Female Reason For Study: as sob Interpretation Summary Left Ventricular Function is estimated to be 60-65%. There is severe concentric left ventricular hypertrophy. Aortic valve is moderate to severely calcified Severe valvular aortic stenosis. Mild aortic regurgitation. There is mild mitral regurgitation. There is moderate to severe mitral annular calcification. Mean PG across MV 2.8mmHg Left Ventricle The left ventricle is normal in size. There is severe concentric left ventricular hypertrophy. Left ventricular systolic function is normal. Left Ventricular Function is estimated to be 60-65%. Right Ventricle The right ventricle is normal size. Atria The left atrium is mild to moderately dilated. Right atrial size is normal. Pericardium/Pleural There is no pericardial effusion. There is no pleural effusion. Mitral Valve There is moderate to severe mitral annular calcification. There is mild mitral stenosis. There is mild mitral regurgitation. Aortic Valve Aortic valve is moderate to severely calcified. Severe valvular aortic stenosis. Mild aortic regurgitation. Tricuspid Valve The tricuspid valve is normal. There is mild tricuspid regurgitation. Pulmonic Valve The pulmonic valve is not well visualized. Mild pulmonic valvular regurgitation. MMode/2D Measurements & Calculations RVDd: 2.9 cm LVIDd: 3.7 cm FS: 35.2 % IVSd: 2.0 cm LVIDs: 2.4 cm EDV(Teich): 57.3 ml IVSs: 2.1 cm LVPWd: 1.1 cm ESV(Teich): 19.8 ml LVPWs: 1.8 cm EF(Teich): 65.4 % % IVS thick: 3.4 % Ao root diam: 2.1 cm asc Aorta Diam: 3.5 cm Ao root area: 3.6 cm2 ACS: 0.44 cm LA dimension: 3.2 cm LVOT diam: 1.4 cm EDV(MOD-sp4): 50.7 ml CO(MOD-sp4): 1.8 l/min ESV(MOD-sp4): 24.6 ml SV(MOD-sp4): 26.1 ml LVOT area: 1.6 cm2 EF(MOD-sp4): 51.6 % Time Measurements Aortic HR: 70.4 BPM MM HR: 69.4 BPM Doppler Measurements & Calculations MV E max mann: 138.5 cm/secMV V2 max: 133.4 cm/sec MV dec slope: 490.3 cm/sec2 MV A max mann: 116.8 cm/secMV max P.1 mmHg MV dec time: 0.28 sec MV E/A: 1.2 MV V2 mean: 77.2 cm/sec MV mean P.8 mmHg MV V2 VTI: 35.3 cm MVA(VTI): 1.5 cm2 Ao V2 max: 410.9 cm/sec LV V1 max P.9 mmHg CO(LVOT): 3.6 l/min Ao max P.6 mmHg LV V1 mean P.1 mmHg SV(LVOT): 51.8 ml Ao V2 mean: 230.6 cm/sec LV V1 max: 140.6 cm/sec Ao mean P.7 mmHg LV V1 mean: 90.9 cm/sec Ao V2 VTI: 81.6 cm LV V1 VTI: 32.9 cm BRIAN(I,D): 0.63 cm2 BRIAN(V,D): 0.54 cm2 PA V2 max: 111.2 cm/sec PI end-d mann: 127.8 cm/secTR max mann: 323.2 cm/sec PA max P.9 mmHg TR max P.8 mmHg RVSP(TR): 51.8 mmHg RAP systole: 10.0 mmHg Ordering Physician: Marivel Miner Referring Physician: Marivel Miner Performed By: Jose Tijerina PRBC-LR--[id number] Reviewed date:10/22/2024 08:42:14 AM Interpretation: Performing Lab: Notes/Report: Number of Units 2 NA Product Type Blood Product NA Crossmatch--[id number] Reviewed date:10/24/2024 05:32:20 PM Interpretation: Performing Lab: Notes/Report: Blood Bank ID [id number] Unknown Blood Product Notification Hold Unknown IS 0+ XM Interp Compatible IS 0+ XM Interp Compatible Schedule Confirmation Reviewed date:10/22/2024 08:41:55 AM Interpretation: Performing Lab: Notes/Report: TRANSCATHETER AORTIC VALVE REPLACEMENT ZZZTransAortic Valve Replace ment Reviewed date:10/24/2024 05:32:09 PM Interpretation: Performing Lab: Notes/Report: See Below For Report This report was dictated outside of the SoundCloud system. Read See Below For Report Echo Limited [id number] Reviewed date:10/24/2024 05:32:20 PM Interpretation: Performing Lab: Notes/Report: Cardiopulmonary Services Name: CLARITZA KELLY Study Date: 10/23/2024 : 1945 Patient Location: [facility] Age: 79 yrs Gender: Female Height: 67 in Weight: 187 lb BSA: 2.0 m2 Reason For Study: Aortic Stenosis TAVR procedure to be one prior to TAR procedure-call information technology teacher when you are ready for them to come - information technology teacher does not arrive until 0630 AM Interpretation Summary Left ventricular systolic function is normal. Left Ventricular Function is estimated to be 60-65%. There is mild concentric left ventricular hypertrophy. The left atrium is mildly dilated. There is mild mitral stenosis. There is mild to moderate mitral regurgitation. There is mild tricuspid regurgitation. Right ventricular systolic pressure is elevated at >60mmHg. Trace pulmonic valvular regurgitation. There is a small pericardial effusion present, not hemodynamically significant. PRE TAVR Severe valvular aortic stenosis. Mean PG 43 mmHg. Aortic Valve max velocity 437 cm/sec. Mild aortic regurgitation. Aortic Valve Area (VMAX) POST TAVR TAVR # 26mm medtronic Evolut. Mean PG 5 mmHg. Aortic Valve max velocity 437 cm/sec. No PVL. There is No amount of central aortic regurgitation. Left Ventricle The left ventricle is normal in size. There is mild concentric left ventricular hypertrophy. Left ventricular systolic function is normal. Left Ventricular Function is estimated to be 60-65%. Right Ventricle The right ventricle is normal in size and function. Atria The left atrium is mildly dilated. Right atrial size is normal. Great Vessels The aortic root is normal size. Pericardium/Pleural There is a small pericardial effusion present, not hemodynamically significant. There is no pleural effusion. Mitral Valve There is moderate mitral annular calcification. There is mild mitral stenosis. There is mild to moderate mitral regurgitation. Tricuspid Valve There is mild tricuspid regurgitation. Right ventricular systolic pressure is elevated at >60mmHg. Pulmonic Valve Trace pulmonic valvular regurgitation. Pre TAVR Severe valvular aortic stenosis. Mean PG 43 mmHg. Aortic Valve max velocity 437 cm/sec. Mild aortic regurgitation. Aortic Valve Area (VMAX) Post TAVR TAVR # 26mm medtronic Evolut. Mean PG 5 mmHg. Aortic Valve max velocity 437 cm/sec. No PVL. There is No amount of central aortic regurgitation. MMode/2D Measurements & Calculations IVSd: 1.2 cm LVIDd: 3.9 cm FS: 50.5 % LVIDs: 1.9 cm EDV(Teich): 67.3 ml LVPWd: 1.3 cm ESV(Teich): 11.9 ml EF(Teich): 82.3 % LA dimension: 4.2 cm asc Aorta Diam: 3.5 cm LVOT diam: 1.7 cm LVOT area: 2.4 cm2 RA A4Cs_phl: 15.3 cm2 Doppler Measurements & Calculations MV E max mann: 112.0 cm/sec MV V2 max: 141.7 cm/sec MV dec time: 0.32 sec MV A max mann: 102.0 cm/sec MV max P.0 mmHg MV E/A: 1.1 MV V2 mean: 89.3 cm/sec Lat Peak E E/E Lateral E/e Med Peak E Ao V2 max: 437.0 cm/sec LV V1 max P.7 mmHg SV(LVOT): 119.5 ml Ao max P.4 mmHg LV V1 mean P.3 mmHg Ao V2 mean: 306.0 cm/sec LV V1 max: 200.6 cm/sec Ao mean P.0 mmHg LV V1 mean: 150.5 cm/sec Ao V2 VTI: 99.2 cm LV V1 VTI: 50.6 cm BRIAN(I,D): 1.2 cm2 BRIAN(V,D): 1.1 cm2 TR max mann: 361.9 cm/sec AV VR_phl: 0.46 E/E TR max P.4 mmHg BRIAN(VTI)/BSA_phl: 0.59 Medial E/e Ordering Physician: Marivel Miner Referring Physician: Marivel Miner Performed By: Ana Maria Montilla, [facility] Echo Limited [id number] Reviewed date:11/15/2024 04:23:08 PM Interpretation: Performing Lab: Notes/Report: Cardiopulmonary Services Name: CLARITZA KELLY Study Date: 11/14/2024 : 1945 Patient Location: [facility] [place] Age: 79 yrs Gender: Female Height: 65 in Weight: 192 lb BSA: 1.9 m2 Reason For Study: as,s/p tavr Interpretation Summary The left ventricle is normal in size. Left Ventricular Function is estimated to be 60-65%. There is moderate concentric left ventricular hypertrophy. Trace pulmonic valvular regurgitation. There is mild tricuspid regurgitation. Right ventricular systolic pressure is elevated at 40-50mmHg. TAVR # 26mm medtronic Evolut.. Mean PG 10.3 mmHg. Aortic Valve max velocity 205.3 cm/sec. No PVL. There is Trace amount of central aortic regurgitation. Recommendations Continue present medication. Will continue to follow regularly. Left Ventricle The left ventricle is normal in size. There is moderate concentric left ventricular hypertrophy. Left Ventricular Function is estimated to be 60-65%. The left ventricular wall motion is normal. Right Ventricle The right ventricle is normal in size and function. Atria The left atrium is mildly dilated. Right atrial size is normal. The interatrial septum is intact with no evidence for an atrial septal defect. Great Vessels The aortic root is normal size. The pulmonary is not well visualized. Pericardium/Pleural There is no pericardial effusion. There is no pleural effusion. Mitral Valve The mitral valve leaflets appear thickened, but open well. There is moderate mitral annular calcification. There is moderate mitral regurgitation. Tricuspid Valve The tricuspid valve is not well visualized, but is grossly normal. There is mild tricuspid regurgitation. Right ventricular systolic pressure is elevated at 40-50mmHg. Pulmonic Valve The pulmonic valve is normal in structure and function. Trace pulmonic valvular regurgitation. Post TAVR TAVR # 26mm medtronic Evolut.. Mean PG 10.3 mmHg. Aortic Valve max velocity 205.3 cm/sec. No PVL. There is Trace amount of central aortic regurgitation. MMode/2D Measurements & Calculations RVDd: 3.6 cm LVIDd: 3.7 cm FS: 32.5 % IVSd: 1.6 cm LVIDs: 2.5 cm EDV(Teich): 56.5 ml LVPWd: 1.2 cm ESV(Teich): 21.6 ml EF(Teich): 61.7 % Ao root diam: 2.2 cm asc Aorta Diam: 3.4 cm LVOT diam: 1.9 cm Ao root area: 3.7 cm2 LVOT area: 2.9 cm2 Time Measurements MM HR: 61.5 BPM Doppler Measurements & Calculations MV E max mann: 145.3 cm/sec MV V2 max: 154.0 cm/sec MV A max mann: 124.3 cm/sec MV max P.5 mmHg MV dec slope: 567.0 cm/sec2 MV E/A: 1.2 MV V2 mean: 94.3 cm/sec MV dec time: 0.26 sec MV mean P.2 mmHg MV V2 VTI: 51.0 cm MVA(VTI): 1.7 cm2 Ao V2 max: 205.3 cm/sec LV V1 max P.6 mmHg SV(LVOT): 88.1 ml Ao max P.9 mmHg LV V1 mean P.2 mmHg Ao V2 mean: 155.2 cm/sec LV V1 max: 118.2 cm/sec Ao mean P.3 mmHg LV V1 mean: 85.3 cm/sec Ao V2 VTI: 43.1 cm LV V1 VTI: 30.2 cm BRIAN(I,D): 2.0 cm2 BRIAN(V,D): 1.7 cm2 PA V2 max: 90.5 cm/sec TR max mann: 296.6 cm/secRAP systole: 5.0 mmHg PA max P.3 mmHg TR max P.1 mmHg PA V2 mean: 69.9 cm/sec RVSP(TR): 49.1 mmHg PA mean P.1 mmHg Ordering Physician: Marivel Miner Referring Physician: Marivel Miner Performed By: Chucho Love CBC w\ Auto Diff [id number] Reviewed date:10/25/2024 05:00:39 PM Interpretation: Performing Lab: Notes/Report: WBC 9.5 4.5-11.0 X10'3 RBC 4.97 4.00-5.20 X10'6 Hgb 13.4 12.0-16.0 G/DL Hct 42.2 36.0-46.0 % MCV 84.9 80.0-100.0 FL MCH 27.0 27.0-31.0 PG MCHC 31.8 31.0-37.0 G/DL Platelet 122 150-400 X10'3 LOW RDW-SD 42.4 35.0-49.0 FL RDW-CV 13.6 12.2-15.6 % MPV 11.2 9.2-12.0 FL Neutro Auto% 55.2 40.0-70.0 % Lymph Auto% 30.6 22.0-44.0 % [place] Auto% 12.0 3.0-7.0 % HI Eos Auto% 1.7 2.0-4.0 % LOW Baso Auto% 0.4 0.0-1.0 % Imm Gran% .1 .0-.4 % Neutro Abs 5.25 .80-7.70 Absolute Neutrophil Count 5250 NA Lymph Abs 2.91 .10-4.10 [place] Abs 1.14 .20-1.00 HI Eos Abs .16 .00-.40 Baso Abs .04 .00-.20 Imm Gran Abs .01 .00-.10 NRBC# .00 .00-.20 X10'3 NRBC% .00 .00-.20 /100 intact WBC's Antibody Screen [id number] Reviewed date:10/22/2024 08:42:08 AM Interpretation: Performing Lab: Notes/Report: Blood Bank ID [id number] Unknown ABSC Interp Negative ABORh 15746, [id number] Reviewed date:10/22/2024 08:42:08 AM Interpretation: Performing Lab: Notes/Report: ABO/Rh Interp A POS Unknown Pro BNP [id number] Reviewed date:10/24/2024 05:32:20 PM Interpretation: Performing Lab: Notes/Report: PBNP 214.2 .0-125.0 PG/ML HI POCT-ACT--NO CPT Reviewed date:10/25/2024 05:00:45 PM Interpretation: Performing Lab: Notes/Report: POCT-ACT 347 75-120 SEC HI POCT-ACT--NO CPT Reviewed date:10/25/2024 05:00:45 PM Interpretation: Performing Lab: Notes/Report: POCT-ACT 311 75-120 SEC HI Echo Limited [id number] Reviewed date:10/24/2024 05:32:25 PM Interpretation: Performing Lab: Notes/Report: [email or web address]=[id number]=[facility] POCT-ACT--NO CPT Reviewed date:10/25/2024 05:00:45 PM Interpretation: Performing Lab: Notes/Report: POCT-ACT 364 75-120 SEC HI WBC Auto Diff--[id number] Reviewed date:10/22/2024 08:42:14 AM Interpretation: Performing Lab: Notes/Report: Added by Discern Rules Neutro Auto% 44.7 40.0-70.0 % Lymph Auto% 41.6 22.0-44.0 % [place] Auto% 8.6 3.0-7.0 % HI Eos Auto% 4.6 2.0-4.0 % HI Baso Auto% 0.4 0.0-1.0 % NRBC% .00 .00-.20 /100 intact WBC's Neutro Abs 3.60 .80-7.70 Absolute Neutrophil Count 3600 NA Lymph Abs 3.35 .10-4.10 [place] Abs .69 .20-1.00 Eos Abs .37 .00-.40 Baso Abs .03 .00-.20 NRBC# .00 .00-.20 X10'3 Imm Gran Abs .01 .00-.10 Imm Gran% .1 .0-.4 % CBC Ref[place] Diff [id number], 8 [id number] Reviewed date:10/22/2024 08:42:14 AM Interpretation: Performing Lab: Notes/Report: WBC 8.0 4.5-11.0 X10'3 RBC 5.73 4.00-5.20 X10'6 HI Hgb 15.4 12.0-16.0 G/DL Hct 48.3 36.0-46.0 % HI MCV 84.3 80.0-100.0 FL MCH 26.9 27.0-31.0 PG LOW MCHC 31.9 31.0-37.0 G/DL Platelet 206 150-400 X10'3 RDW-SD 43.1 35.0-49.0 FL RDW-CV 14.0 12.2-15.6 % MPV 10.9 9.2-12.0 FL Review Auto Diff Conf WBC Auto Diff--[id number] Reviewed date:09/13/2024 04:26:41 PM Interpretation: Performing Lab: Notes/Report: Added by Discern Rules Neutro Auto% 45.5 40.0-70.0 % Lymph Auto% 42.5 22.0-44.0 % [place] Auto% 7.7 3.0-7.0 % HI Eos Auto% 3.7 2.0-4.0 % Baso Auto% 0.4 0.0-1.0 % NRBC% .00 .00-.20 /100 intact WBC's Neutro Abs 3.79 .80-7.70 Absolute Neutrophil Count 3790 NA Lymph Abs 3.54 .10-4.10 [place] Abs .64 .20-1.00 Eos Abs .31 .00-.40 Baso Abs .03 .00-.20 NRBC# .00 .00-.20 X10'3 Imm Gran Abs .02 .00-.10 Imm Gran% .2 .0-.4 % PRBC-LR--[id number] Reviewed date:09/13/2024 04:26:41 PM Interpretation: Performing Lab: Notes/Report: Number of Units 2 NA Product Type Blood Product NA CBC Reflex Man Diff [id number], 8 5007 Reviewed date:09/13/2024 04:26:41 PM Interpretation: Performing Lab: Notes/Report: WBC 8.3 4.5-11.0 X10'3 RBC 5.56 4.00-5.20 X10'6 HI Hgb 15.4 12.0-16.0 G/DL Hct 48.3 36.0-46.0 % HI MCV 86.9 80.0-100.0 FL MCH 27.7 27.0-31.0 PG MCHC 31.9 31.0-37.0 G/DL Platelet 209 150-400 X10'3 RDW-SD 47.1 35.0-49.0 FL RDW-CV 14.8 12.2-15.6 % MPV 10.2 9.2-12.0 FL Review Auto Diff Conf Basic Metabolic Panel (BMP) [id number] Reviewed date:09/17/2024 04:13:12 PM Interpretation: Performing Lab: Notes/Report: Sodium 139 136-145 MMOL/L Potassium 4.1 3.5-5.1 MMOL/L Chloride 103 98-107 MMOL/L CO2 25.3 20.0-31.0 MMOL/L Glucose Serum 112 71-110 MG/DL HI Testing p erformed at [facility], [address] [place] [address] [place] [address]. CLIA ID#: [id number] BUN 21 7-21 MG/DL Creat .80 .51-1.17 MG/DL Q-vofmxi-u-benzoquin one imine (NAPQI) is a metabolite of acetaminophen, NAPQI concentrations of apparoximately 10 mg/L correlation to toxic levels of acetaminophen demonstrates a greater than or equil to 10% change in results. NAPQI concentrations greater than this may lead to falsely depressed results for patient samples. Use of this assay is not recommended for patients undergoing treatment with phenindione, due to the potential for falsely depressed results. GFR 74.8 NA Calculation pe rformed from GFR calculator provided by the [employer]. Glomerular Filtration rate(GRF) is the best overall index of kidney function. Normal GFR varies according to age,sex, body size, and declines with age. The [employer] recommends using the CKD-EPI Creatinine Equation(2020) to estimate GFR. Anion Gap 15 5-15 BUN/Creat Ratio 26.2 12.0-20.0 % HI Calcium 10.2 8.7-10.4 MG/DL Osmo Serum,Calculated 292 280-300 MOSM/KG CT Cardiac Scoring [facility][1] [id number] Reviewed date:05/07/2024 04:24:19 PM Interpretation: Performing Lab: Notes/Report: See Below For Report CT Cardiac Scoring Diagnostic Read See Below For Report Chest 1V Reviewed date:10/25/2024 05:00:39 PM Interpretation: Performing Lab: Notes/Report: [email or web address]=[id number]=[employer] Schedule Confirmation Reviewed date:10/10/2024 01:08:16 PM Interpretation: Performing Lab: Notes/Report: TRANSCATHETER AORTIC VALVE REPLACEMENT ZZZTransAortic Valve Replace ment Reviewed date:10/24/2024 05:32:25 PM Interpretation: Performing Lab: Notes/Report: [email or web address]=[id number]=iSite ABORh 57021, [id number] Reviewed date:09/17/2024 04:13:12 PM Interpretation: Performing Lab: Notes/Report: ABO/Rh Interp A POS Unknown Antibody Screen [id number] Reviewed date:09/17/2024 04:13:12 PM Interpretation: Performing Lab: Notes/Report: Blood Bank ID [id number] Unknown ABSC Interp Negative Echo Complete [id number] Reviewed date:09/17/2024 04:13:19 PM Interpretation: Performing Lab: Notes/Report: [email or web address]=[id number]=[employer] Schedule Confirmation Reviewed date:10/22/2024 08:42:01 AM Interpretation: Performing Lab: Notes/Report: TRANSCATHETER AORTIC VALVE REPLACEMENT Schedule Confirmation Reviewed date:10/22/2024 08:42:01 AM Interpretation: Performing Lab: Notes/Report: TRANSCATHETER AORTIC VALVE REPLACEMENT Schedule Confirmation Reviewed date:10/22/2024 08:41:55 AM Interpretation: Performing Lab: Notes/Report: TRANSCATHETER AORTIC VALVE REPLACEMENT Schedule Confirmation Reviewed date:10/24/2024 05:32:15 PM Interpretation: Performing Lab: Notes/Report: TRANSCATHETER AORTIC VALVE REPLACEMENT UA Reflex Micro, Reflex Cult [id number], [id number], [id number] Reviewed date:10/25/2024 05:00:39 PM Interpretation: Performing Lab: Notes/Report: Color UA Yellow NA Clarity UA Clear NA Specific gravity UA 1.026 1.005-1.030 Urine pH 5.5 5.0-8.0 NA Urine Glucose 3+ NA Urine Bilirubin Negative NA Urine Ketone 1+ NA Urine Blood Negative NA Urine Protein Negative NA Urobilinogen 0.2 0.1-1.0 NA Urine Nitrite Negative NA Urine Leukocyte Negative NA Normal UA Yes Urine Culture No Chest 1V Reviewed date:10/25/2024 05:00:39 PM Interpretation: Performing Lab: Notes/Report: See Below For Report Chest 1V Read See Below For Report Echo Complete [id number] Reviewed date:10/25/2024 05:00:45 PM Interpretation: Performing Lab: Notes/Report: [email or web address]=[id number]=[employer] Echo Complete [id number] Reviewed date:10/24/2024 05:29:36 PM Interpretation: Performing Lab: Notes/Report: Cardiopulmonary Services Name: CLARITZA KELLY Study Date: 10/24/2024 : 1945 Patient Location: [facility] Age: 79 yrs Gender: Female Height: 67 in Weight: 190 lb BP: 134/55 mmHg BSA: 2.0 m2 Reason For Study: S/P TAVR procedure, f/u Implanted device (prosthetic) valve, Post op day 1 TAVR Interpretation Summary Left ventricular systolic function is normal. Left Ventricular Function is estimated to be >70%. There is mild mitral stenosis. There is mild to moderate mitral regurgitation. There is mild tricuspid regurgitation. Right ventricular systolic pressure is elevated at 40-50mmHg. Trace pulmonic valvular regurgitation. There is a trivial pericardial effusion present, not hemodynamically significant. 1 DAY POST TAVR TAVR # 26mm medtronic Evolut. Aortic Valve max velocity 220 cm/sec. Mean PG 10 mmHg. No PVL. There is No amount of central aortic regurgitation. There is moderate concentric left ventricular hypertrophy. Left Ventricle The left ventricle is normal in size. There is moderate concentric left ventricular hypertrophy. Left ventricular systolic function is normal. Left Ventricular Function is estimated to be >70%. Right Ventricle The right ventricle is normal in size and function. Atria The left atrial size is normal. Right atrial size is normal. Great Vessels The aortic root is normal size. Pericardium/Pleural There is a trivial pericardial effusion present, not hemodynamically significant. There is no pleural effusion. Mitral Valve There is moderate mitral annular calcification. There is mild mitral stenosis. There is mild to moderate mitral regurgitation. Tricuspid Valve There is mild tricuspid regurgitation. Right ventricular systolic pressure is elevated at 40-50mmHg. Pulmonic Valve Trace pulmonic valvular regurgitation. Post TAVR TAVR # 26mm medtronic Evolut. Aortic Valve max velocity 220 cm/sec. Mean PG 10 mmHg. No PVL. There is No amount of central aortic regurgitation. MMode/2D Measurements & Calculations IVSd: 1.5 cm LVIDd: 3.0 cm FS: 38.9 % LVIDs: 1.8 cm EDV(Teich): 34.2 ml LVPWd: 1.7 cm ESV(Teich): 9.9 ml EF(Teich): 70.9 % LA dimension: 3.9 cm asc Aorta Diam: 3.4 cm LVOT diam: 1.7 cm LVOT area: 2.4 cm2 RA A4Cs_phl: 11.8 cm2 Doppler Measurements & Calculations MV E max mann: 145.0 cm/sec MV V2 max: 176.6 cm/sec MV dec time: 0.30 sec MV A max mann: 139.0 cm/sec MV max P.5 mmHg MV E/A: 1.0 MV V2 mean: 122.5 cm/sec Lat Peak E E/E Lateral E/e Med Peak E Ao V2 max: 213.0 cm/sec LV V1 max P.2 mmHg SV(LVOT): 63.8 ml Ao max P.1 mmHg LV V1 mean P.7 mmHg Ao V2 mean: 145.0 cm/sec LV V1 max: 134.3 cm/sec Ao mean P.0 mmHg LV V1 mean: 88.4 cm/sec Ao V2 VTI: 40.9 cm LV V1 VTI: 27.0 cm BRIAN(I,D): 1.6 cm2 BRIAN(V,D): 1.5 cm2 PA V2 max: 105.5 cm/sec TR max mann: 284.1 cm/sec AV VR_phl: 0.63 PA max P.5 mmHg TR max P.3 mmHg BRIAN(VTI)/BSA_phl: 0.76 E/E Ordering Physician: Marivel Miner Referring Physician: Marivel Miner Performed By: Ana Maria Montilla RCS Schedule Confirmation Reviewed date:10/22/2024 08:41:55 AM Interpretation: Performing Lab: Notes/Report: TRANSCATHETER AORTIC VALVE REPLACEMENT Schedule Confirmation Reviewed date:10/22/2024 08:41:55 AM Interpretation: Performing Lab: Notes/Report: TRANSCATHETER AORTIC VALVE REPLACEMENT Partial Thromboplastin Time 71788 Reviewed date:10/22/2024 08:42:14 AM Interpretation: Performing Lab: Notes/Report: PTT 28.7 22.6-31.8 SEC Therapeutic Range: 60-100. Critical Value Starting at > 100. Basic Metabolic Panel (BMP) 63294 Reviewed date:10/22/2024 08:42:14 AM Interpretation: Performing Lab: Notes/Report: Sodium 140 136-145 MMOL/L Potassium 4.2 3.5-5.1 MMOL/L Chloride 100 98-107 MMOL/L CO2 29.8 20.0-31.0 MMOL/L Glucose Serum 79 71-110 MG/DL Testing p erformed at [facility], [address] [place] [address] [place] [address]. CLIA ID#: [id number] BUN 17 7-21 MG/DL Creat .77 .51-1.17 MG/DL X-zkjvqr-c-benzoquin one imine (NAPQI) is a metabolite of acetaminophen, NAPQI concentrations of apparoximately 10 mg/L correlation to toxic levels of acetaminophen demonstrates a greater than or equil to 10% change in results. NAPQI concentrations greater than this may lead to falsely depressed results for patient samples. Use of this assay is not recommended for patients undergoing treatment with phenindione, due to the potential for falsely depressed results. GFR 79.1 NA Calculation pe rformed from GFR calculator provided by the [employer]. Glomerular Filtration rate(GRF) is the best overall index of kidney function. Normal GFR varies according to age,sex, body size, and declines with age. The National Kidney Foundation recommends using the CKD-EPI Creatinine Equation(2020) to estimate GFR. Anion Gap 14 5-15 BUN/Creat Ratio 22.1 12.0-20.0 % HI Calcium 10.5 8.7-10.4 MG/DL HI Osmo Serum,Calculated 290 280-300 MOSM/KG Prothrombin Time 38374 Reviewed date:10/22/2024 08:42:14 AM Interpretation: Performing Lab: Notes/Report: ProTime 11.2 9.1-11.9 SEC Normal Range : 9.1-11.9 INR 1.06 .90-1.20 Therapeutic Range: 2.0-3.0 Therapaeutic Range for heart valve replacement: 2.5-3.50 Albumin 17903 Reviewed date:10/22/2024 08:42:14 AM Interpretation: Performing Lab: Notes/Report: Albumin 5.0 3.2-4.8 G/DL HI Partial [place]oplastin Time 33713 Reviewed date:05/31/2024 08:04:00 AM Interpretation: Performing Lab: Notes/Report: PTT 27.3 22.6-31.8 SEC Therapeutic Range: 60-100. Critical Value Starting at > 100. Lipid Panel Reflex DLDL 8000 1, 65335 Reviewed date:05/31/2024 08:04:00 AM Interpretation: Performing Lab: Notes/Report: Trig 160 NA Classification Guidelines:Triglyceri duran Adults: >20yrs Desirable <150 Borderline High 150-199 High 200-499 Very high >=500 Children: Male 0-4 yr 22-99 5-9 yr 30-101 10-14 yr 32-125 15-19 yr 37-148 Children: Female 0-4 yr 34-112 5-9 yr 32-105 10-14 yr 37-131 15-19 yr 39-132 Chol 123 <=200 MG/DL HDL 40 39-96 MG/DL Reference Ranges:HDL Male: 5-9y 38-75 10-14y 37-74 15-19y 30-63 >=20y 40-59 Female: 5-9y 36-73 10-14y 37-70 15-19y 35-74 >=20y 40-59 CH/HDL 3.1 0.0-4.9 RATIO LDL 51 0-130 MG/DL LDL result is inaccurate , if Trig is >400 mg/dl. See DLDL result. Basic Metabolic Panel (BMP) 01812 Reviewed date:05/31/2024 08:04:00 AM Interpretation: Performing Lab: Notes/Report: Sodium 139 136-145 MMOL/L Potassium 4.2 3.5-5.1 MMOL/L Chloride 103 98-107 MMOL/L CO2 29.5 20.0-31.0 MMOL/L Glucose Serum 169 71-110 MG/DL HI Testing p erformed at [facility], [address] [place] [address] [place] [address]. CLIA ID#: [id number] BUN 16 7-21 MG/DL Creat .79 .51-1.17 MG/DL M-swyija-u-benzoquin one imine (NAPQI) is a metabolite of acetaminophen, NAPQI concentrations of apparoximately 10 mg/L correlation to toxic levels of acetaminophen demonstrates a greater than or equil to 10% change in results. NAPQI concentrations greater than this may lead to falsely depressed results for patient samples. Use of this assay is not recommended for patients undergoing treatment with phenindione, due to the potential for falsely depressed results. GFR 76.3 NA Calculation pe rformed from GFR calculator provided by the National Kid[employer]. Glomerular Filtration rate(GRF) is the best overall index of kidney function. Normal GFR varies according to age,sex, body size, and declines with age. The National Kidney Foundation recommends using the CKD-EPI Creatinine Equation(2020) to estimate GFR. Anion Gap 11 5-15 BUN/Creat Ratio 20.3 12.0-20.0 % HI Calcium 9.8 8.7-10.4 MG/DL Osmo Serum,Calculated 293 280-300 MOSM/KG Prothrombin Time 75334 Reviewed date:05/31/2024 08:04:00 AM Interpretation: Performing Lab: Notes/Report: ProTime 11.2 9.1-11.9 SEC Normal Range : 9.1-11.9 INR 1.06 .90-1.20 Therapeutic Range: 2.0-3.0 Therapaeutic Range for heart valve replacement: 2.5-3.50 Echo Complete -07659 Reviewed date:05/31/2024 08:04:37 AM Interpretation: Performing Lab: Notes/Report: Cardiopulmonary Services Name: CLARITZA KELLY Study Date: 05/10/2024 : 1945 Patient Location: [facility] Age: 79 yrs Gender: Female Height: 67 in Weight: 185 lb BSA: 2.0 m2 Reason For Study: Hypertension Interpretation Summary There is moderate concentric left ventricular hypertrophy. Left ventricular systolic function is normal. Left Ventricular Function is estimated to be 60-65%. Global Longitudinal Strain is -10.4 %. The right atrium is mildly dilated. The left atrium is mild to moderately dilated. There is mild to moderate mitral annular calcification. There is mild mitral regurgitation. There is mild tricuspid regurgitation. Trace aortic regurgitation. Mild pulmonic valvular regurgitation. Moderate to severe valvular aortic stenosis. Recommendations Continue present medication. Will continue to follow regularly. Continue to monitor for symptoms of . Left Ventricle The left ventricle is normal in size. There is moderate concentric left ventricular hypertrophy. Left ventricular systolic function is normal. Left Ventricular Function is estimated to be 60-65%. Global Longitudinal Strain is - 10.4 %. Right Ventricle The right ventricle is normal size. The right ventricular systolic function is normal. Atria The left atrium is mild to moderately dilated. The right atrium is mildly dilated. Pericardium/Pleural There is no pericardial effusion. There is no pleural effusion. Mitral Valve There is mild to moderate mitral annular calcification. There is mild mitral regurgitation. Aortic Valve Moderate to severe valvular aortic stenosis. Trace aortic regurgitation. Tricuspid Valve The tricuspid valve is not well visualized, but is grossly normal. There is mild tricuspid regurgitation. Pulmonic Valve The pulmonic valve is not well seen, but is grossly normal. Mild pulmonic valvular regurgitation. MMode/2D Measurements & Calculations IVSd: 1.4 cm LVIDd: 3.1 cm FS: 37.3 % IVSs: 1.8 cm LVIDs: 1.9 cm EDV(Teich): 38.2 ml LVPWd: 1.4 cm ESV(Teich): 11.9 ml LVPWs: 1.7 cm EF(Teich): 68.8 % % IVS thick: 25.8 % Ao root diam: 2.9 cm asc Aorta Diam: 3.7 cm Ao root area: 6.7 cm2 ACS: 0.98 cm LA dimension: 4.5 cm LVOT diam: 1.8 cm EDV(MOD-sp4): 63.9 ml CO(MOD-sp4): 2.7 l/min LVOT area: 2.6 cm2 ESV(MOD-sp4): 23.6 ml SV(MOD-sp4): 40.3 ml EF(MOD-sp4): 63.1 % Time Measurements Aortic HR: 61.4 BPM MM HR: 65.8 BPM Doppler Measurements & Calculations MV E max mann: 114.3 cm/sec MV V2 max: 125.4 cm/sec MV A max mann: 139.1 cm/sec MV max P.3 mmHg MV dec slope: 480.9 cm/sec2 MV E/A: 0.82 MV V2 mean: 80.9 cm/sec MV dec time: 0.24 sec MV mean P.0 mmHg MV V2 VTI: 41.2 cm MVA(VTI): 1.8 cm2 Ao V2 max: 401.0 cm/sec LV V1 max P.1 mmHg CO(LVOT): 4.6 l/min Ao max P.3 mmHg LV V1 mean P.4 mmHg SV(LVOT): 74.4 ml Ao V2 mean: 323.3 cm/sec LV V1 max: 112.6 cm/sec Ao mean P.3 mmHg LV V1 mean: 88.6 cm/sec Ao V2 VTI: 107.1 cm LV V1 VTI: 29.1 cm BRIAN(I,D): 0.69 cm2 BRIAN(V,D): 0.72 cm2 PA V2 max: 90.3 cm/sec TR max mann: 204.0 cm/sec PA max P.3 mmHg TR max P.6 mmHg Ordering Physician: Angel Zurita Referring Physician: Angel Zurita Performed By: Juan Manuel Leslie RCS Schedule Confirmation Reviewed date:05/07/2024 04:24:19 PM Interpretation: Performing Lab: Notes/Report: CT Cardiac Scoring Diagnostic Schedule Confirmation Reviewed date:03/14/2024 04:48:17 PM Interpretation: Performing Lab: Notes/Report: CT Cardiac Scoring Diagnostic zzzCT Cardiac Scoring Diagno stic RAD Reviewed date:05/07/2024 04:24:19 PM Interpretation: Performing Lab: Notes/Report: [id number] Chest PA/Lat-58500 Reviewed date:05/07/2024 04:24:19 PM Interpretation: Performing Lab: Notes/Report: See Below For Report Chest PA/Lat Diagnosis Description: Essential (primary) hypertension Read See Below For Report Echo Limited [id number] Reviewed date:10/31/2024 03:03:36 PM Interpretation: Performing Lab: Notes/Report: Magnesium (B) 19824 Reviewed date:10/24/2024 05:29:36 PM Interpretation: Performing Lab: Notes/Report: Magnesium 2.0 1.8-2.4 MG/DL Basic Metabolic Panel (BMP) 02814 Reviewed date:10/24/2024 05:29:36 PM Interpretation: Performing Lab: Notes/Report: Sodium 139 136-145 MMOL/L Potassium 3.9 3.5-5.1 MMOL/L Chloride 104 98-107 MMOL/L CO2 25.6 20.0-31.0 MMOL/L Glucose Serum 120 71-110 MG/DL HI Testing p erformed at [facility] [place] [address]. CLIA ID#: [id number] BUN 17 7-21 MG/DL Creat .65 .51-1.17 MG/DL R-viufma-r-benzoquin one imine (NAPQI) is a metabolite of acetaminophen, NAPQI concentrations of apparoximately 10 mg/L correlation to toxic levels of acetaminophen demonstrates a greater than or equil to 10% change in results. NAPQI concentrations greater than this may lead to falsely depressed results for patient samples. Use of this assay is not recommended for patients undergoing treatment with phenindione, due to the potential for falsely depressed results. GFR 89.7 NA Calculation pe rformed from GFR calculator provided by the National Kidney Foundation. Glomerular Filtration rate(GRF) is the best overall index of kidney function. Normal GFR varies according to age,sex, body size, and declines with age. The National Kidney Foundation recommends using the CKD-EPI Creatinine Equation(2020) to estimate GFR. Anion Gap 13 5-15 BUN/Creat Ratio 26.2 12.0-20.0 % HI Calcium 9.2 8.7-10.4 MG/DL Osmo Serum,Calculated 291 280-300 MOSM/KG CBC w\ Auto Diff 28782 Reviewed date:10/24/2024 05:29:36 PM Interpretation: Performing Lab: Notes/Report: WBC 11.0 4.5-11.0 X10'3 RBC 4.79 4.00-5.20 X10'6 Hgb 12.8 12.0-16.0 G/DL Hct 41.6 36.0-46.0 % MCV 86.8 80.0-100.0 FL MCH 26.7 27.0-31.0 PG LOW MCHC 30.8 31.0-37.0 G/DL LOW Platelet 154 150-400 X10'3 RDW-SD 44.0 35.0-49.0 FL RDW-CV 13.8 12.2-15.6 % MPV 11.3 9.2-12.0 FL Neutro Auto% 66.5 40.0-70.0 % Lymph Auto% 21.7 22.0-44.0 % LOW [place] Auto% 10.7 3.0-7.0 % HI Eos Auto% .4 2.0-4.0 % LOW Baso Auto% 0.2 0.0-1.0 % Imm Gran% .5 .0-.4 % HI Neutro Abs 7.31 .80-7.70 Absolute Neutrophil Count 7310 NA Lymph Abs 2.38 .10-4.10 [place] Abs 1.17 .20-1.00 HI Eos Abs .04 .00-.40 Baso Abs .02 .00-.20 Imm Gran Abs .05 .00-.10 NRBC# .00 .00-.20 X10'3 NRBC% .00 .00-.20 /100 intact WBC's Schedule Confirmation Reviewed date:10/22/2024 08:41:55 AM Interpretation: Performing Lab: Notes/Report: TRANSCATHETER AORTIC VALVE REPLACEMENT Basic Metabolic Panel (BMP) 34567 Reviewed date:10/25/2024 05:00:39 PM Interpretation: Performing Lab: Notes/Report: Sodium 140 136-145 MMOL/L Potassium 3.6 3.5-5.1 MMOL/L Chloride 104 98-107 MMOL/L CO2 28.1 20.0-31.0 MMOL/L Glucose Serum 108 71-110 MG/DL Testing p erformed at [facility] [place] [address]. CLIA ID#: [id number] BUN 13 7-21 MG/DL Creat .77 .51-1.17 MG/DL Q-ztesml-u-benzoquin one imine (NAPQI) is a metabolite of acetaminophen, NAPQI concentrations of apparoximately 10 mg/L correlation to toxic levels of acetaminophen demonstrates a greater than or equil to 10% change in results. NAPQI concentrations greater than this may lead to falsely depressed results for patient samples. Use of this assay is not recommended for patients undergoing treatment with phenindione, due to the potential for falsely depressed results. GFR 78.3 NA Calculation pe rformed from GFR calculator provided by the National Kidney Foundation. Glomerular Filtration rate(GRF) is the best overall index of kidney function. Normal GFR varies according to age,sex, body size, and declines with age. The National Kidney Foundation recommends using the CKD-EPI Creatinine Equation(2020) to estimate GFR. Anion Gap 12 5-15 BUN/Creat Ratio 16.9 12.0-20.0 % Calcium 9.3 8.7-10.4 MG/DL Osmo Serum,Calculated 291 280-300 MOSM/KG Quizrr [id number] Reviewed date:11/15/2024 04:23:21 PM Interpretation: Performing Lab: Notes/Report: [id number] Reason For Referral No Information Medications Medication SIG (Take, Route, Frequency, Duration) Notes Start Date End Date Status Clopidogrel Bisulfate 75 MG Tablet 1 tablet Orally Once a day; Duration: 90 days begin day after procedure start after 10.23.24 09/13/2024 Active Fish Oil 1000 MG Capsule 1 capsule Orally Once a day Active Cetirizine HCl 10 MG Tablet 1 tablet Orally Once a day Active Cinnamon 500 MG Capsule as directed Orally 1500mg Active Black Cohosh 80 MG Capsule 1 cap Orally twice a day Active Calcium 600 + D 600-5 MG-MCG Tablet 3 tablets with a meal Orally Once a day 07/09/2024 Active Aspirin 81 81 MG Tablet Delayed Release 1 tablet Orally Once a day Active Valsartan 80 MG Tablet 1 tablet Orally Once a day at night; Duration: 90 days 12/25/2024 Active Berberine HCI 500 MG Capsule 2 caps Orally TID Active Valsartan-hydroCHLOROth iazide 160-12.5 MG Tablet 1 tablet Orally Once a day; Duration: 90 days Active Rosuvastatin Calcium 5 MG Tablet 1 tablet Oral Once a day; Duration: 90 days Active traMADol HCl 50 MG Tablet 2 tablets Orally every 6 hours As needed Active amLODIPine Besylate 10 MG Tablet 1 tablet Orally Once a day; Duration: 90 days Active Zinc 50 MG Tablet 1 tablet Orally Once a day Active PARoxetine HCl 10 MG Tablet 1 tablet in the morning Orally Once a day Active Biotin 5000 MCG Tablet Chewable 1 tablet Orally Once a day Active Multivitamin - Tablet 1 tablet Orally Once a day 02/27/2024 Active Pantoprazole Sodium 40 MG Tablet Delayed Release 1 tablet 1/2 to 1 hour before morning meal Orally Once a day; Duration: 30 days start after 10.23.24 09/13/2024 Active Melatonin 12 MG Tablet as directed Orall y daily Active Meloxicam 15 MG Tablet 1 tablet Orally Once a day Active Lysine 500 MG Capsule as directed Orally twice a day Active Magnesium 250 MG Tablet 1 tablet with a meal Orally Once a day Active Jardiance 25 MG Tablet 1 tablet Orally Once a day; Duration: 90 days Active Levothyroxine Sodium 100 MCG Capsule 1 tablet in the morning on an empty stomach Orally Once a day Active Isosorbide Mononitrate ER 30 MG Tablet Extended Release 24 Hour 1 tablet Orally Twice a day; Duration: 90 days 12/03/2024 11/29/2025 Active Fluticasone Propionate 50 MCG/ACT Suspension 1 spray in each nostril Nasally Once a day Active glipiZIDE ER 10 MG Tablet Extended Release 24 Hour Oral Active Social History Tobacco Use: Social History Observation Description Date Details (start date - stop date) Never Smoker NA - NA Social History Drugs/Alcohol: Social Info Question Answer Notes Drugs Have you used drugs other than those for medical reasons in the past 12 months? No Caffeine Intake: 1-2 cups per day Drug/Alcohol: Social Info Question Answer Notes AUDIT-C (Standard) Did you have a drink containing alcohol in the past year? No Points 0 Interpretation Negative Tobacco Use: Social Info Question Answer Notes Tobacco Control (Standard) Tobacco use: Nonsmoker Tobacco use other than smoking: Are you an other tobac co user? No Additional Details Category Social Info Options Details Drugs/Alcohol: Do you smoke marijuana? De nies Do you drink alcohol? No Problems Problem Type SNOMED Code ICD Code Onset Dates Problem Status W/U Status Risk Notes Problem Type II diabetes mellitus without complication (330246186) Type 2 diabetes mellitus without complications (E11.9) Active confirmed Problem Mixed hyperlipidemia (797682373) Mixed hyperlipidemia (E78.2) Active confirmed Problem Non-pressure chronic ulcer of other part of right foot with fat layer exposed (L97.512) Active confirmed Problem Essential hypertension (39323460) Essential hypertension (I10) Active confirmed Problem Gastroesophageal reflux disease without esophagitis (049695943) Gastroesophageal reflux disease without esophagitis (K21.9) Active confirmed Problem Dyspnea (110777441) SOB (shortne ss of breath) (R06.02) Active confirmed Problem Acquired hammer toe of right foot (2183017197881942) Hammer toe of right foot (M20.41) Active confirmed Problem Left bundle branch block (99967675) LBBB (left bundle branch block) (I44.7) Active confirmed Problem Osteoarthritis of right knee joint (534891100206474) Osteoarthritis of right knee, unspecified osteoarthritis type (M17.11) Active confirmed Problem Peripheral vascular disease (296790605) PVD (peripheral vascular disease) (I73.9) Active confirmed Problem Aortic valve disorder (7196099) Aortic stenosis (I35.0) Active confirmed Problem Arthritis of both knees (0208882577051094) Arthritis of both knees (M17.0) Active confirmed Problem [place]arrama's neuroma of right foot (393509481631498) [place]arrama's neuroma of right foot (G57.61) Active confirmed Problem Pain in right foot (959999060871908) Right foot pain (M79.671) Active confirmed Problem Hyperlipidaemia (27604937) Hyperlipemia (E78.5) Active confirmed Problem Long-term current use of drug therapy (076894860) Antiplatelet or antithrombotic long-term use (Z79.02) Active confirmed Problem Obesity (458350880) Obesity (E66.9) Active conf irmed Problem Coronary artery disease (95243051) Coronary artery disease (I25.10) Active confirmed Problem Hypothyroidism (51239141) Hypothyroidism (E03.9) Active confirmed Problem Atherosclerotic heart disease of [place] coronary artery without angina pectoris (732204006485713) Arteriosclerosis of coronary artery (I25.10) Active confirmed Problem Peripheral vascular disease (127502512) PAD (peripheral artery disease) (I73.9) Active confirmed Problem Hypertension (20163716) Hypertension (I10) Active confirmed Problem Hyperlipidemia (59725349) Hyperlipidemia (E78.5) Active confirmed Problem Aortic valve disorder (3604001) Aortic valve stenosis, etiology of cardiac valve disease unspecified (I35.0) Active confirmed Problem History of heart valve repair with prosthesis (072156464856758) Aortic valve replaced (Z95.2) Active confirmed Problem Aortic valve disorder (1594847) Acquired stenosis of aortic valve (I35.0) Active confirmed Problem Aortic valve disorder (9740953) Severe aortic stenosis (I35.0) Active confirmed Problem Osteoarthritis of left knee joint (259732527659456) Osteoarthritis of left knee, unspecified osteoarthritis type (M17.12) Active confirmed Problem Disorder due to type 2 diabetes mellitus (637608562) Type 2 diabetes with complication (E11.8) Active confirmed Problem Disorder of musculoskeletal system (317252) Leg fatigue (R29.898) Active confirmed Problem Complete atrioventricular block (58540775) Complete AV block (I44.2) Active confirmed Problem Gastroesophageal reflux disease (945308165) Gastroesophageal reflux disease, unspecified whether esophagitis present (K21.9) Active confirmed Problem History of COVID-19 (631510867401489094 ) History of COVID-19 (Z86.16) Active confirmed Problem History of heart valve recipient (848196456) Status post transcatheter aortic valve replacement (TAVR) using bioprosthesis (Z95.3) Active confirmed Problem Complete atrioventricular block (42370205) CHB (complete heart block) (I44.2) Active confirmed Problem Critical ischemia of foot (236239644) Critical ischemia of foot (I70.229) Active confirmed Problem Postprocedural states (114781957) Status post angiography of extremity (Z98.890) Active confirmed Vital Signs Heart Rate 89 /min 02/25/2025 Temperature 97.9 degrees Fahrenheit 09/05/2024 Elissa ent c/o 7/10 lower back pain at this time. Blood pressure diastolic 82 mm Hg 02/25/2025 Oximetry 95 % 02/25/2025 Height-cm 165.1 cm 02/25/2025 Weight-kg 86.36 kg 02/25/2025 Height 65 in 02/25/2025 Blood pressure systolic 152 mm Hg 02/25/2025 Weight 190.4 lbs 02/25/2025 BMI 31.68 kg/m2 02/25/2025 Procedures Procedure Date Ordered Date Performed Result Body Sit e Coronary Angio with Left Heart Cath 05/10/2024 05/10/2024 N/A Encounters Encounter Location Date Provider Diagnosis [facility] [address] [address] 11/14/2024 [facility] [address] [address] 09/13/2024 [facility] [address] [address] 02/25/2025 Angel Zurita Essential hypertensi on I10 ; Severe aortic stenosis I35.0 ; Coronary artery disease I25.10 ; PAD (peripheral artery disease) I73.9 ; Hyperlipemia E78.5 ; Type 2 diabetes mellitus without complications E11.9 ; Obesity E66.9 and Gastroesophageal reflux disease without esophagitis K21.9 [facility] [address] [place] [address], [place] [address] 12/25/2024 Edna Wheat Essential hypertensi on I10 ; Severe aortic stenosis I35.0 ; Coronary artery disease I25.10 ; PAD (peripheral artery disease) I73.9 ; Hyperlipemia E78.5 ; Type 2 diabetes mellitus without complications E11.9 ; Obesity E66.9 and Gastroesophageal reflux disease without esophagitis K21.9 [facility] [address] [place] [address] 12/06/2024 Akihiro Isidra Essential hypertension I10 ; Severe aortic stenosis I35.0 ; Coronary artery disease I25.10 ; PAD (peripheral artery disease) I73.9 ; Hyperlipemia E78.5 ; Type 2 diabetes mellitus without complications E11.9 ; Obesity E66.9 and Gastroesophageal reflux disease without esophagitis K21.9 [facility] [address] [place] [address] 12/03/2024 Akihiro Isidra Severe aortic stenosis I35.0 ; Essential hypertension I10 ; Coronary artery disease I25.10 ; PAD (peripheral artery disease) I73.9 ; Hyperlipemia E78.5 ; Type 2 diabetes mellitus without complications E11.9 ; Obesity E66.9 and Gastroesophageal reflux disease without esophagitis K21.9 [facility] [address] [place] [address], [place] [address] 11/14/2024 Akihiro Isidra Coronary artery disease I25.10 ; Severe aortic stenosis I35.0 ; PAD (peripheral artery disease) I73.9 ; Essential hypertension I10 ; Hyperlipemia E78.5 ; Type 2 diabetes mellitus without complications E11.9 ; Obesity E66.9 and Gastroesophageal reflux disease without esophagitis K21.9 [facility] [address] [place] [address] 10/17/2024 Akihiro Isidra Coronary artery disease I25.10 ; Severe aortic stenosis I35.0 ; PAD (peripheral artery disease) I73.9 ; Essential hypertension I10 ; Hyperlipemia E78.5 ; Type 2 diabetes mellitus without complications E11.9 ; Obesity E66.9 and Gastroesophageal reflux disease without esophagitis K21.9 [facility] [address] [place] [address] 06/15/2024 Scott Moise Essential hypertensi on I10 ; SOB (shortness of breath) R06.02 ; Mixed hyperlipidemia E78.2 ; Type 2 diabetes with complication E11.8 ; Arteriosclerosis of coronary artery I25.10 ; PVD (peripheral vascular disease) I73.9 ; Aortic stenosis I35.0 and Other fatigue R53.83 [facility] [address] [place] [address], [place] [address] 10/23/2024 Ruth Baron [facility] [address] [place] [address], [place] [address] 05/10/2024 Angel Zurita [facility] [address] [place] [address], [place] [address] 05/10/2024 Malena Gardner SOB (shortness of breath) R06.02 ; Aortic valve stenosis, etiology of cardiac valve disease unspecified I35.0 ; Essential hypertension I10 ; PVD (peripheral vascular disease) I73.9 ; Gastroesophageal reflux disease without esophagitis K21.9 ; Mixed hyperlipidemia E78.2 and Type 2 diabetes with complication E11.8 [facility] [address] [place] [address], [place] [address] 07/09/2024 Angel Zurita [facility] [address] [place] [address] 09/05/2024 Mando Townsend Aortic stenosis I35. 0 ; Coronary artery disease I25.10 ; Hypertension I10 ; Hyperlipidemia E78.5 ; Type 2 diabetes mellitus without complications E11.9 and Hypothyroidism E03.9 [facility] [address] [place] [address], [place] [address] 10/29/2024 Marivel Miner Status post transcatheter aortic valve replacement (TAVR) using bioprosthesis Z95.3 and Severe aortic stenosis I35.[address] [place] [address] 09/13/2024 Marivel Miner Coronary artery disease I25.10 ; Severe aortic stenosis I35.0 ; PAD (peripheral artery disease) I73.9 ; Essential hypertension I10 ; Hyperlipemia E78.5 ; Type 2 diabetes mellitus without complications E11.9 ; Obesity E66.9 and Gastroesophageal reflux disease without esophagitis K21.9 [facility] [address] [place] [address], [place] [address] 10/23/2024 Marivel Miner [facility] [address] [place] [address] 07/23/2024 Mando Townsend [facility] [address] [place] [address] 07/19/2024 Marivel Miner [facility] [address] [place] [address] 06/25/2024 Scott Moise [facility] [address] [place] [address] 06/15/2024 Mando Townsend [facility] [address] [place] [address], [place] [address] 05/14/2024 Angel Zurita [facility] [address] [place] [address], [place] [address] 05/11/2024 Angel Zurita [facility] [address] [place] [address], [place] [address] 05/10/2024 Angel Zurita [facility] [address] [place] [address], [place] [address] 05/10/2024 Angel Zurita Migrated_Facility 0 0 06/10/2024 Provider Migration Migrated_Facility 0 0 06/09/2024 Provider Migration [facility] [address] [place] [address], [place] [address] 01/02/2025 Angel Zurita [facility] [address] [place] [address], [place] [address] 12/07/2024 Marivel Miner Severe aortic stenosis I35.0 and Essential hypertension I10 [facility] [address] [place] [address], [place] [address] 12/04/2024 Marivel Miner Essential hypertension I10 [facility] [address] [place] [address], [place] [address] 12/04/2024 Marivel Miner [facility] [address] [place] [address], [place] [address] 12/03/2024 [facility] [address] [place] [address] 11/27/2024 [facility] [address] [place] [address] 11/15/2024 [facility] [address] [place] [address], [place] [address] 10/29/2024 [facility] [address] [place] [address] 10/[facility] stenosis I35.0 and Status post transcatheter aortic valve replacement (TAVR) using bioprosthesis Z95.3 [facility] [address] [place] [address], [place] [address] 10/22/2024 [facility] [address] [place] [address], [place] [address] 10/08/2024 [facility] [address] [place] [address], [place] [address] 09/14/2024 [facility] [address] [place] [address], [place] [address] 09/11/2024 [facility] [address] [place] [address], [place] [address] 09/11/2024 [facility] [address] [place] [address], [place] [address] 09/11/2024 [facility] Aortic valve stenosis, etiology of cardiac valve disease unspecified I35.0 and SOB (shortness of breath) R06.02 Assessments Encounter Date Diagnosis (ICD Code) Assessment Notes Treatment Notes Treatment Clinical Notes Section Notes 09/05/2024 Aortic stenosis (ICD-10 - I35.0) #1 aortic stenosis #2 coronary artery disease #3 hypertension #4 hyperlipidemia #5 diabetes mellitus #6 hypothyroidism 09/05/2024 Coronary artery disease (ICD-10 - I25.10) #1 aortic stenosis #2 coronary artery disease #3 hypertension #4 hyperlipidemia #5 diabetes mellitus #6 hypothyroidism 05/10/2024 SOB (shortness of breath) (ICD-10 - R06.02) 05/10/2024 Aortic valve stenosis, etiology of cardiac valve disease unspecified (ICD-10 - I35.0) She does not recall a history of rheumatic fever. We discussed diuretics today. At this point the patient does not feel she needs a diuretic but we could consider going forward if symptoms worsen. 06/15/2024 Essential hypertension (ICD-10 - I10) BP is well controlled. Continue current dose of amlodipine, carvedilol, and valsartan-hydrochlor othiazide. 06/15/2024 SOB (shortness of breath) (ICD-10 - R06.02) Likely due to her severe aortic stenosis. 09/13/2024 Coronary artery disease (ICD-10 - I25.10) Nonobstructive CAD. Medically managed. EKG in office today indication severe CAD PAD finding are sinus rhythm heart rate is [address]-T changes noted 09/13/2024 Severe aortic stenosis (ICD-10 - I35.0) Severe symptomatic aortic stenosis. We talked about risk and benefits of the TAVR procedure. As outlined on the H&P portion. She agreed to have TAVR procedure next available tentatively scheduled on Tuesday. EKG in office today indication severe CAD PAD finding are sinus rhythm heart rate is [address]-T changes noted 10/17/2024 Coronary artery disease (ICD-10 - I25.10) Nonobstructive CAD. Medically managed. 10/17/2024 Severe aortic stenosis (ICD-10 - I35.0) Severe symptomatic aortic stenosis. We talked about risk and benefits of the TAVR procedure. As outlined on the H&P portion. She agreed to have TAVR procedure next available tentatively scheduled on Tuesday. After discussion with the patient and Dr. Townsend, a shared decision making process was used, we have offered the patient both options. We agree a TAVR would be a better option for this patient. The patient understands the risks, benefits, and alternatives and agrees to proceed. Patient has been recommended for transcatheter aortic valve replacement. Indications and risks of the procedure were reviewed. These include but are not limited to device embolization, complete heart block resulting in permanent pacemaker implantation, aortic annular rupture, pericardial effusion, infection, bruising, bleeding, arterial clot, vessel dissection, injury to kidneys from contrast exposure, as well as the potential for stroke, heart attack and . Despite these risks the patient wishes to proceed. Patient verbalizes understanding and denies any additional questions or concerns. If patient's symptoms worsen they are to present to the emergency room for further evaluation. - Cardiac Rehab recommended after TAVR procedure 09/11/2024 Aortic valve stenosis, etiology of cardiac valve disease unspecified (ICD-10 - I35.0) 10/29/2024 Severe aortic stenosis (ICD-10 - I35.0) 10/29/2024 Status post transcatheter aortic valve replacement (TAVR) using bioprosthesis (ICD-10 - Z95.3) 10/29/2024 Status post transcatheter aortic valve replacement (TAVR) using bioprosthesis (ICD-10 - Z95.3) 11/14/2024 Coronary artery disease (ICD-10 - I25.10) Nonobstructive CAD. Medically managed. EKG in office today indication is severe arctic stenosis s/p TAVR findings are sinus rhythm heart rate of 59 normal [place] left bundle branch block with QRS of 144 ms 11/14/2024 Severe aortic stenosis (ICD-10 - I35.0) S/p TAVR procedure with Medtronic valve in October 2024. Echo showed normal ejection fraction of 60% with no pericardial effusion V-max is 2 m/s mean pressure gradient of 10 mmHg. NYHA is class I EKG in office today indication is severe arctic stenosis s/p TAVR findings are sinus rhythm heart rate of 59 normal NJ left bundle branch block with QRS of 144 ms 12/03/2024 Severe aortic stenosis (ICD-10 - I35.0) S/p TAVR procedure with Medtronic valve in October 2024. Echo showed normal ejection fraction of 60% with no pericardial effusion V-max is 2 m/s mean pressure gradient of 10 mmHg. NYHA is class I EKG in office today indication is severe arctic stenosis s/p TAVR findings are sinus rhythm heart rate of 57 normal NJ left bundle branch block with QRS of 136 ms 12/03/2024 Essential hypertension (ICD-10 - I10) Increase isosorbide to twice a day. Follow-up in 2 to 3 days. Patient will bring all the medication bottles with her EKG in office today indication is severe arctic stenosis s/p TAVR findings are sinus rhythm heart rate of 57 normal NJ left bundle branch block with QRS of 136 ms 12/04/2024 Essential hypertension (ICD-10 - I10) 12/06/2024 Essential hypertension (ICD-10 - I10) It was a lot of confusion in the patient side as far as medication. Somehow she was still taking Coreg 12.5 twice a day. Talked about completely stopping Coreg. Continue valsartan, hydrochlorothiazide, isosorbide twice a day, and start amlodipine 10 mg daily. Follow-up with her primary gem setter. 12/06/2024 Severe aortic stenosis (ICD-10 - I35.0) S/p TAVR procedure with Medtronic valve in October 2024. Echo showed normal ejection fraction of 60% with no pericardial effusion V-max is 2 m/s mean pressure gradient of 10 mmHg. NYHA is class I 12/25/2024 Essential hypertension (ICD-10 - I10) 02/25/2025 Essential hypertension (ICD-10 - I10) Continue current dose of amlodipine, isosorbide, valsartan, and valsartan-hydrochlor othiazide. 02/25/2025 Severe aortic stenosis (ICD-10 - I35.0) S/p TAVR in October [address] Miner. Continue DAPT with aspirin and clopidogrel. 12/07/2024 Severe aortic stenosis (ICD-10 - I35.0) 12/07/2024 Essential hypertension (ICD-10 - I10) 02/25/2025 Coronary artery disease (ICD-10 - I25.10) The patient is known to have nonobstructive CAD per May 2024 [facility]. Patient is not having anginal symptoms. Continue conservative therapy. 12/25/2024 Severe aortic stenosis (ICD-10 - I35.0) S/p TAVR procedure with Medtronic valve in October 2024. Echo showed normal ejection fraction of 60% with no pericardial effusion V-max is 2 m/s mean pressure gradient of 10 mmHg. NYHA is class I 12/06/2024 Coronary artery disease (ICD-10 - I25.10) 12/03/2024 Coronary artery disease (ICD-10 - I25.10) Nonobstructive CAD. Medically managed. EKG in office today indication is severe arctic stenosis s/p TAVR findings are sinus rhythm heart rate of 57 normal NJ left bundle branch block with QRS of 136 ms 11/14/2024 PAD (peripheral artery disease) (ICD-10 - I73.9) EKG in office today indication is severe arctic stenosis s/p TAVR findings are sinus rhythm heart rate of 59 normal NJ left bundle branch block with QRS of 144 ms 10/29/2024 Severe aortic stenosis (ICD-10 - I35.0) 09/11/2024 SOB (shortness of breath) (ICD-10 - R06.02) 10/17/2024 PAD (peripheral artery disease) (ICD-10 - I73.9) 09/13/2024 PAD (peripheral artery disease) (ICD-10 - I73.9) EKG in office today indication severe CAD PAD finding are sinus rhythm heart rate is [address]-T changes noted 06/15/2024 Mixed hyperlipidemia (ICD-10 - E78.2) Continue current dose of rosuvastatin. 05/10/2024 Essential hypertension (ICD-10 - I10) Well-controlled 09/05/2024 Hypertension (ICD-10 - I10) #1 aortic stenosis #2 coronary artery disease #3 hypertension #4 hyperlipidemia #5 diabetes mellitus #6 hypothyroidism 09/05/2024 Hyperlipidemia (ICD-10 - E78.5) #1 aortic stenosis #2 coronary artery disease #3 hypertension #4 hyperlipidemia #5 diabetes mellitus #6 hypothyroidism 05/10/2024 PVD (peripheral vascular disease) (ICD-10 - I73.9) She had a peripheral procedure on the left lower extremity several years ago at [facility] requiring stenting. These records are not readily available at this time. 06/15/2024 Type 2 diabetes with complication (ICD-10 - E11.8) Maintained on glipizide. 09/13/2024 Essential hypertension (ICD-10 - I10) EKG in office today indication severe CAD PAD finding are sinus rhythm heart rate is [address]-T changes noted 10/17/2024 Essential hypertension (ICD-10 - I10) 11/14/2024 Essential hypertension (ICD-10 - I10) Blood pressure is reasonable today is 140/80. After the TAVR procedure she had a transient complete heart block which was also induced by being on the Coreg 6.25 twice a day. It has resolved. She is still wearing the monitor. Denied any chest pain shortness of breath syncope or blacking out. No indication for the pacemaker. EKG in office today indication is severe arctic stenosis s/p TAVR findings are sinus rhythm heart rate of 59 normal NJ left bundle branch block with QRS of 144 ms 12/03/2024 PAD (peripheral artery disease) (ICD-10 - I73.9) EKG in office today indication is severe arctic stenosis s/p TAVR findings are sinus rhythm heart rate of 57 normal NJ left bundle branch block with QRS of 136 ms 12/06/2024 PAD (peripheral artery disease) (ICD-10 - I73.9) 12/25/2024 Coronary artery disease (ICD-10 - I25.10) Her EKG shows normal sinus rhythm, possible left atrial enlargement nonspecific interventricular block ventricular rate of 81 NJ interval of 162 and a QRS duration 134 this is unchanged from her EKG that she had after the TAVR in October. 02/25/2025 PAD (peripheral artery disease) (ICD-10 - I73.9) 02/25/2025 Hyperlipemia (ICD-10 - E78.5) Continue current dose of rosuvastatin and fish oil. 12/25/2024 PAD (peripheral artery disease) (ICD-10 - I73.9) 12/06/2024 Hyperlipemia (ICD-10 - E78.5) 12/03/2024 Hyperlipemia (ICD-10 - E78.5) EKG in office today indication is severe arctic stenosis s/p TAVR findings are sinus rhythm heart rate of 57 normal NJ left bundle branch block with QRS of 136 ms 11/14/2024 Hyperlipemia (ICD-10 - E78.5) EKG in office today indication is severe arctic stenosis s/p TAVR findings are sinus rhythm heart rate of 59 normal NJ left bundle branch block with QRS of 144 ms 10/17/2024 Hyperlipemia (ICD-10 - E78.5) 09/13/2024 Hyperlipemia (ICD-10 - E78.5) EKG in office today indication severe CAD PAD finding are sinus rhythm heart rate is [address]-T changes noted 06/15/2024 Arteriosclerosis of coronary artery (ICD-10 - I25.10) 05/29/2024 LHC showed 30% stenosis in the proximal-mid LAD, 50% on the superior OM, 70% distal stenosis of a small PL branch, and 70-75% stenosis in the PDA. Patient is not having anginal symptoms. Continue conservative therapy with aspirin. 05/10/2024 Gastroesophageal reflux disease without esophagitis (ICD-10 - K21.9) 09/05/2024 Type 2 diabetes mellitus without complications (ICD-10 - E11.9) #1 aortic stenosis #2 coronary artery disease #3 hypertension #4 hyperlipidemia #5 diabetes mellitus #6 hypothyroidism 09/05/2024 Hypothyroidism (ICD-10 - E03.9) #1 aortic stenosis #2 coronary artery disease #3 hypertension #4 hyperlipidemia #5 diabetes mellitus #6 hypothyroidism 05/10/2024 Mixed hyperlipidemia (ICD-10 - E78.2) 06/15/2024 PVD (peripheral vascular disease) (ICD-10 - I73.9) 09/13/2024 Type 2 diabetes mellitus without complications (ICD-10 - E11.9) EKG in office today indication severe CAD PAD finding are sinus rhythm heart rate is [address]-T changes noted 10/17/2024 Type 2 diabetes mellitus without complications (ICD-10 - E11.9) 11/14/2024 Type 2 diabetes mellitus without complications (ICD-10 - E11.9) EKG in office today indication is severe arctic stenosis s/p TAVR findings are sinus rhythm heart rate of 59 normal NJ left bundle branch block with QRS of 144 ms 12/03/2024 Type 2 diabetes mellitus without complications (ICD-10 - E11.9) EKG in office today indication is severe arctic stenosis s/p TAVR findings are sinus rhythm heart rate of 57 normal NJ left bundle branch block with QRS of 136 ms 12/06/2024 Type 2 diabetes mellitus without complications (ICD-10 - E11.9) 12/25/2024 Hyperlipemia (ICD-10 - E78.5) 02/25/2025 Type 2 diabetes mellitus without complications (ICD-10 - E11.9) Maintained on glipizide and Jardiance. 02/25/2025 Obesity (ICD-10 - E66.9) 12/25/2024 Type 2 diabetes mellitus without complications (ICD-10 - E11.9) 12/06/2024 Obesity (ICD-10 - E66.9) 12/03/2024 Obesity (ICD-10 - E66.9) EKG in office today indication is severe arctic stenosis s/p TAVR findings are sinus rhythm heart rate of 57 normal NJ left bundle branch block with QRS of 136 ms 11/14/2024 Obesity (ICD-10 - E66.9) EKG in office today indication is severe arctic stenosis s/p TAVR findings are sinus rhythm heart rate of 59 normal NJ left bundle branch block with QRS of 144 ms 10/17/2024 Obesity (ICD-10 - E66.9) 09/13/2024 Obesity (ICD-10 - E66.9) EKG in office today indication severe CAD PAD finding are sinus rhythm heart rate is [address]-T changes noted 06/15/2024 Aortic stenosis (ICD-10 - I35.0) Mean gradient of 44 mmHg on echo, consistent with severe aortic stenosis. We will continue with work-up for aortic valve replacement--we will obtain CTA TAVR and dental clearance. She is scheduled to see her dentist in August and she underwent LHC in May 2024. Refer to Dr. Townsend. 05/10/2024 Type 2 diabetes with complication (ICD-10 - E11.8) 06/15/2024 Other fatigue (ICD-10 - R53.83) 09/13/2024 Gastroesophageal reflux disease without esophagitis (ICD-10 - K21.9) EKG in office today indication severe CAD PAD finding are sinus rhythm heart rate is [address]-T changes noted 10/17/2024 Gastroesophageal reflux disease without esophagitis (ICD-10 - K21.9) 11/14/2024 Gastroesophageal reflux disease without esophagitis (ICD-10 - K21.9) EKG in office today indication is severe arctic stenosis s/p TAVR findings are sinus rhythm heart rate of 59 normal NJ left bundle branch block with QRS of 144 ms 12/03/2024 Gastroesophageal reflux disease without esophagitis (ICD-10 - K21.9) EKG in office today indication is severe arctic stenosis s/p TAVR findings are sinus rhythm heart rate of 57 normal NJ left bundle branch block with QRS of 136 ms 12/06/2024 Gastroesophageal reflux disease without esophagitis (ICD-10 - K21.9) 12/25/2024 Obesity (ICD-10 - E66.9) 02/25/2025 Gastroesophageal reflux disease without esophagitis (ICD-10 - K21.9) 12/25/2024 Gastroesophageal reflux disease without esophagitis (ICD-10 - K21.9) 05/10/2024 Other As stated above this case was discussed today with Dr. Zurita. We will proceed with TAVR workup, schedule angiogram today and follow-up [address] Zurita. 06/15/2024 Other Follow up as scheduled. TAVR could potentially take place in August-October, depending on the timing of her dental clearance. Maria D Capps am scribing for Scott Moise MD.Scott Capps MD, personally performed the services prescribed in this documentati on, as scribed by Maria D Guaman, and it is both accurate and complete. 09/05/2024 Other High Blood Pressure: Care Instructions material was printed Recommendation was to treat the aortic valve stenosis with a transcatheter aortic valve replacement. #1 aortic stenosis #2 coronary artery disease #3 hypertension #4 hyperlipidemia #5 diabetes mellitus #6 hypothyroidism 09/13/2024 Other Hakeem Capps am scribing for Marivel Miner MD. Marivel Capps MD, personally performed the services prescribed in this documentati on, as scribed by Hakeem Packer and it is both accurate and complete. EKG in office today indication severe CAD PAD finding are sinus rhythm heart rate is [address]-T changes noted 11/14/2024 Other Hakeem Capps am scribing for Marivel Miner MD. Marivel Capps MD, personally performed the services prescribed in this documentati on, as scribed by Hakeem Packer and it is both accurate and complete. EKG in office today indication is severe arctic stenosis s/p TAVR findings are sinus rhythm heart rate of 59 normal NJ left bundle branch block with QRS of 144 ms 12/06/2024 Other Hakeem Capps am scribing for Marivel Miner MD. Marivel Capps MD, personally performed the services prescribed in this documentati on, as scribed by Hakeem Packer and it is both accurate and complete. 02/25/2025 Other Follow up in 3 months with Ellie. Consider work-up for cardiac clearance (for back surgery) at next appointment. IMaria D, am scribing for Angel Zurita MD.Angel Capps MD, personally performed the services prescribed in this documentati on, as scribed by Maria D Guaman, and it is both accurate and complete. Plan Of Treatment Pending Test Test Name Order Date Albumin 26385 05/10/2024 Prothrombin Time 22079 05/10/2024 Basic Metabolic Panel (BMP) 09328 2023 Hemoglobin 27884 05/10/2024 Lipid Panel Reflex DLDL 30324, 86780 Partial Thromboplastin Time 35777 2023 CBC Reflex Man Diff 10786, 74945 024 Pro BNP 68008 05/10/2024 Electrocardiogram (EKG, 87082) 5 Electrocardiogram 12 Lead Tracing-66504 05/10/2024 Electrocardiogram 12 Lead Tracing-47144 03/13/2024 CTA TAVR - 95413, 71592, 98946 4 Electrocardiogram (EKG) - 63952 11/15/19 25 Electrocardiogram (EKG) - 25746 12/04/19 25 Electrocardiogram (EKG) - 07267 12/26/19 25 Next Appt Details Provider Name:Edna Sonia Martineztracy stevan, 05/28/2025 11:00:00 AM, [address] [place] [address], [phone], Insurance Providers Payer Name Payer Address Payer Phone Subscriber Number Group Number Insured Name Patient Relationship to Insured Coverage Start Date Coverage End Date [place] [address] [address] [place] [address] [id number] CLARITZA KELLY Self - patient is the insured [facility] [place] Medicare Supplement [address] [place] [address] [id number] CLARITZA KELLY Self - patient is the insured Medical (General) History Medical History History ICD Code hypertension hyperlipidemia diabetes mellitus Arthritis hyperthyroidism covid vaccinated w/ boosters heart murmur heart valve insufficiency hx of covid Surgical History Surgery Date(Month/Year) tonsillectomy and adenoidectomy hammer toe blockage in right leg and toe hysterectomy, total bilat knee replacement back surgery [facility] 05.29.24 #1. Successful trans-cathete r aortic valve replacement with Flex + 26 mm valve 10/23/2024 Hospitalization History Reason Date(Month/Year) BH admit Physician Chief Com plaint: Bradycardia Nursing Chief Complaint: From home, was sent by Is[facility], tomorrow a pacemaker is to be placed. Had an aortic valve replacement surgery Tuesday. Had an episode last night on monitor 10.27- 10.28.24 [facility] IMPRESSIONS: 1. Hyperdyn [facility] left ventricular systolic function. 2. Severe aortic stenosis. 3. Distal small vessel coronary artery disease. RECOMMENDATION: This patient will undergo medical management of her coronary artery disease, with referral for consideration of a transarterial valve replacement. 05.29.24 Cardiac testing: U/S, Echo, and Stress test @ [facility] in [place], [place].
[2025-03-20 19:59] LABS: Hematocrit 50.4 % (36-47); Hemoglobin 15.80 g/dL (11.27-16.99); Mean Corpuscular HGB Conc 31.3 g/dL (30-55); Mean Corpuscular Hemoglobin 25.4 pg (27-33); Mean Corpuscular Volume 81.2 fl (85-98); Nucleated Red Blood Cells % 0 %; Platelet Count 166 10^3/cmm (157-399); Red Blood Count 6.21 10^6/uL (3.85-5.65); White Blood Count 7.87 10^3/uL (3.29-11.43)
--- NOTE | 2025-03-20 20:01 | ECG_ITS ---
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 Measurements Intervals [place] Rate: 92 P: 63 MS: 173 QRS: 24 QRSD: 154 T: 169 QT: 408 QTc: 505 Interpretive Statements SINUS RHYTHM POSSIBLE LEFT ATRIAL ENLARGEMENT [-0.1mV P-WAVE IN V1/V2] LEFT BUNDLE BRANCH BLOCK [120+ ms QRS DURATION, 80+ ms Q/S IN V1/V2, 85+ ms R IN I/aVL/V5/V6] Compared to ECG 02/01/2024 09:49:49 Left bundle-branch block now present Electronically Signed On 03-20-2025 22:46:20 CDT by Ese Gaston M.D. [email or web address]
[2025-03-20 20:12] VITALS: BP 183/88; PULSE 90; O2SAT 90
[2025-03-20 20:12] LABS: INR 0.89 (0.8-1.2); Prothrombin Time 12.70 SECONDS (12.1-14.9)
[2025-03-20 20:16] LABS: Alanine Aminotransferase 60 U/L (0-33); Albumin Level 4.6 g/dL (3.5-5.2); Alkaline Phosphatase 115 U/L (35-105); Anion Gap 16.5 (5-19); Aspartate Amino Transferase 53 U/L (0-32); Blood Urea Nitrogen 18 mg/dL (8-23); Calcium 9.8 mg/dL (8.5-10.5); Carbon Dioxide 24 mmol/L (22-29); Chloride 101 mmol/L (98-107); Creatinine Clr Calc Pharmacy 65.0241; Globulin 3.4 g/dL (1.3-4.6); Glucose 138 mg/dL (65-115); Osmolality Calculated 290 mOsm/kg (285-295); Potassium 3.5 mmol/L (3.5-5.1); Sodium 138 mmol/L (136-145); Total Protein 8.0 g/dL (6.6-8.7)
[2025-03-20 20:23] VITALS: RESP 16; O2SAT 97
[2025-03-20] MEDS: ondansetron 2 mg/ML SDV 2 mL 4 MG IVP (20:23)
[2025-03-20] MEDS: morphine 4 mg/mL SDV 1 mL IVP (20:23)
--- NOTE | 2025-03-20 20:31 | USCV_ITS ---
Loree Read Age: 79 Gender: F : 1945 Exam Date: 03/20/2025 22:34 Ordering Phys: Shiv Lau MD Technologist: SILVANO [place]am [place] [facility] [place]ication: sob, ground-level fall, s/p TAVR 10/23/2024 BP: 183 / 88 HR: 87 Rhythm: Sinus Technical Quality: Adequate MEASUREMENTS (Male / Female) Normal Values 2D ECHO LV Diastolic Diameter PLAX 4.0 cm 4.2 - 5.9 / 3.9 - 5.3 cm IVS Diastolic Thickness 1.5 cm 0.6 - 1.0 / 0.6 - 0.9 cm IVS Systolic Thickness 2.4 cm LVPW Diastolic Thickness 1.5 cm 0.6 - 1.0 / 0.6 - 0.9 cm LVPW Systolic Thickness 1.3 cm LVOT Diameter 1.5 cm LV Ejection Fraction 2D Teich 67.5 % LV Ejection Fraction MOD 4C 55.0 % LV Ejection Fraction MOD 2C 66.8 % LV Ejection Fraction 2C AL 68.3 % LA Diameter 5.2 cm Aorta at Sinotubular Diameter 1.9 cm IVC Diameter 1.3 cm M-MODE LA Ao Ratio MM 2.5 AV Cusp Separation MM 1.4 cm DOPPLER AV Peak Velocity 174.0 cm/s LVOT Peak Velocity 129.0 cm/s AV Area Cont Eq vti 1.4 cm squared AV Area Cont Eq pk 1.2 cm squared MV Peak Velocity 205.0 cm/s MV Area PHT 6.9 cm squared Mitral E to A Ratio 0.7 TV Peak E Velocity 26.0 cm/s PV Peak Velocity 109.0 cm/s FINDINGS Left Ventricle Normal left ventricular size, systolic function and wall thickness, with no regional wall motion abnormalities. Left ventricular ejection fraction is estimated at 60 %. Right Ventricle The right ventricle is normal in size and function. Right Atrium The right atrium is normal in size. Left Atrium Moderately increased left atrial size. Mitral Valve Moderately thickened mitral valve. Moderate mitral annular calcification. No mitral valve stenosis. Trace mitral valve regurgitation. Aortic Valve Bioprosthetic aortic valve sitting in the normal position without significant valvular or paravalvular leak. In general it is suboptimal images valve is not well-visualized, mild aortic valve stenosis, mean gradient 6.5 mmHg, BRIAN 1.4 cm squared. Tricuspid Valve Structurally normal tricuspid valve without significant stenosis or regurgitation. Pulmonary artery systolic pressure is normal. Pulmonic Valve Mild pulmonary valve regurgitation. Pericardium Normal pericardium without effusion. Aorta Normal ascending aorta dimension. IVC The inferior vena cava appears normal. CONCLUSIONS Normal left ventricular size, systolic function and wall thickness, with no regional wall motion abnormalities. Left ventricular ejection fraction is estimated at 60 %. Moderately increased left atrial size. Bioprosthetic aortic valve sitting in the normal position without significant valvular or paravalvular leak. In general it is suboptimal images valve is not well-visualized, mild aortic valve stenosis, mean gradient 6.5 mmHg, BRIAN 1.4 cm squared. Moderately thickened mitral valve. Moderate mitral annular calcification. No mitral valve stenosis. Trace mitral valve regurgitation. There is no pericardial effusion. Right atrial pressure is around 5 mm of mercury. Raymundo Goodman MD (Electronically Signed) Final Date: 21 March 2025 12:27 S
--- NOTE | 2025-03-20 20:50 | ED_ITS ---
HPI - Fall 2 General: Chief Complaint: Fall Stated Complaint: fall , loc Time Seen by Provider: 03/20/25 19:46 Source: patient and EMS Mode of arrival: EMS History of Present Illness: Patient arrives via EMS for fall at home presents with right hip pain with shortening and rotation. Denies LOC. Did receive 75 mcg of fentanyl. Does not wear oxygen at home. Pain level is currently. high pulses are intact. Related Data Home Medications ?Medication ?Instructions ?Recorded ?Confirmed aspirin 81 mg tablet,delayed 81 mg PO DAILY 08/27/19 0 03/21/25 release cetirizine 10 mg capsule (Allergy 10 mg PO DAILY 08/2703/21/25 Relief (cetirizine)) fluticasone propionate 50 1 spray intranasal BID 08/2703/21/25 mcg/actuation nasal spray,suspension (Flonase Allergy Relief) lysine 1,000 mg tablet 1,000 mg PO BID 08/27/1903/08 multivitamin 1 tab PO DAILY 11/29/1903/08 magnesium 200 mg tablet 400 mg PO BID 05/14/2003/21 meloxicam 15 mg tablet 15 mg PO DAILY 03/10/2103/08 levothyroxine 100 mcg tablet 100 mcg PO DAILY 02/01/24 03/21/25 (Synthroid) melatonin 10 mg capsule 10 mg PO DAILY 02/01/2403/08 amlodipine 10 mg tablet 10 mg PO DAILY 03/21/2503/08 omega 1-jmc-qox-fish oil 900 1 cap PO DAILY 03/21/25 0 03/21/25 mg-1,400 mg capsule,delayed release pantoprazole 40 mg tablet,delayed See Rx Instructions .Route .COMPLEX 03/21/25 03/21/25 release paroxetine HCl 10 mg tablet 10 mg PO DAILY 03/21/25 Previous Rx's ?Medication ?Instructions ?Recorded tramadol 50 mg tablet 50 mg PO Q6H PRN Pain #60 ta bs 06/04/20 carvedilol 12.5 mg tablet 12.5 mg PO BID #180 tabs rosuvastatin 5 mg tablet (Crestor) 5 mg PO DAILY #90 t abs 11/04/23 valsartan 160 See Rx Instructions .Route 0 05/02/24 mg-hydrochlorothiazide 12.5 mg .COMPLEX #90 tabs tablet Allergies Allergy/AdvReac Type Severity Reaction Status Date / Time quinine Allergy Severe Unknown Verified 06/21/24 14:34 Quinidine-Quinine Analogues Allergy Unknown Unknown Verified 06/21/24 14:34 (Cincho (Quinidine-Quinine Analogues (Cinchona Alkaloids)) Sulfa (Sulfonamide AdvReac Intermediate ADR-Gastrointestinal Verified 06/21/24 14:34 Antibiotics) Upset Review of Systems 2 General: Reports: 10 or more systems reviewed and unremarkable except in HPI and below PFSH ED 2 PFSH: Medical History (Updated 03/20/25 @ 21:05 by Shiv Lau MD) Essential hypertension Aortic stenosis Arthritis of knee, right Right knee DJD Hyperthyroidism GERD (gastroesophageal reflux disease) Hypertension Right foot pain Guadarrama's neuroma of right foot Status post angiography of extremity Non-pressure chronic ulcer of other part of right foot with fat layer exposed PVD (peripheral vascular disease) Critical ischemia of foot Primary osteoarthritis of right knee Right total knee arthroplasty on May 20, 2020. Primary osteoarthritis of left knee Left total knee arthroplasty on September 18, 2019. 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, right History of peripheral arterial disease Social History Smoking and tobacco/nicotine status: never used tobacco/nicotine Alcohol intake: never Substance/Drug Use: never Current occupation: one step x 2 into house Physical Exam 2 Const: COMMON NORMALS: no acute distress, average body habitus, patient oriented x3, healthy appearing, alert and well nourished GENERAL APPEARANCE: well kempt and well developed HENMT: COMMON NORMALS: normocephalic, atraumatic, external ears normal and moist oral mucous membranes HEAD & SCALP: normocephalic and atraumatic E XTERNAL EAR: Yes external ears normal Eye: COMMON NORMALS: Equal, round and reactive pupils present, EOMs intact bilaterally and conjunctivae normal CONJUNCTIVA: Yes conjunctivae normal P UPIL: Yes Equal, round and reactive pupils present Neck/C-Spine: COMMON NORMALS: full ROM, no lymphadenopathy and supple Chest: CHEST: Yes Symmetrical chest wall rise and No Surgical scars present (Chest) Resp: COMMON NORMALS: normal respiratory effort, No retractions, No use of accessory muscles and clear to auscultation bilaterally AUSCULTATION: clear to auscultation bilaterally Cardio: COMMON NORMALS: regular rate, regular rhythm, S1 normal heart sound present, S2 normal heart sound present, No gallops present (Cardio), No clicks present (Cardio), No murmurs present (Cardio) and No rub (Cardio) RATE: r egular rate RHYTHM: regular rhythm HEART SOUNDS: S1 normal heart sound present, S2 normal heart sound present and no murmurs PERIPHERAL PULSES: o ther (Radial pulses 2+ and symmetric) GI: COMMON NORMALS: Soft to palpation, non-tender and no masses INSPECTION: No abdominal distension PALPATION: Yes Soft to palpation, No Guarding due to palpation present (GI) and No Rebound tenderness present : COMMON NORMALS: Yes no CVA tenderness BLADDER/KIDNEY EXAM: Yes no CVA tenderness Back/Pelvis: COMMON NORMALS: no CVA tenderness Extremity: COMMON NORMALS: capillary refill normal and no clubbing, cyanosis or edema NARRATIVE EXTREMITY EXAM: Right lower extremity with good pulses, shortened and externally rotated. Neuro: COMMON NORMALS: patient oriented x3 SENSORIUM/ORIENTATION: Yes alert Psych: APPEARANCE: Yes well kempt Skin: COMMON NORMALS: no rashes or lesions noted, no wounds, turgor normal and no jaundice GENERAL SKIN EXAM: no rashes or lesions noted and turgor normal Course 2 Vital Signs: Vital signs: Vital Signs Temperature 98.3 F 03/20/25 19:46 Pulse Rate 88 03/21/25 16:50 Respiratory Rate 16 03/21/25 10:00 Blood Pressure 155/86 03/21/25 16:50 Pulse Oximetry 94 03/21/25 16:50 Oxygen Delivery Me thod Nasal Cannula 03/21/25 16:18 Oxygen Flow Rate 4 03/21/25 16:18 MDM - Fall Medical Decision Making Patient fracture of the proximal femur with apex lateral angulation minimal distraction. X-ray is unremarkable, head CT was unremarkable. Patient with new left bundle branch block. Patient and are requesting transfer to outside hospital for further care as they do not want to have the Ortho group here participating in their care. Transfer has been called and we are awaiting transfer over there is a wait time. This has been explained to patient. Lab Data 03/20/25 19:53 03/20/25 19:53 Radiology Impressions Chest X-Ray 03/20/25 19:46 IMPRESSION: No definite acute fracture. No pneumothorax or definite pulmonary contusion. Hip/Pelvis X-Ray 03/20/25 19:46 IMPRESSION: Fracture of the proximal femur with apex lateral angulation, minimal distraction. Head CT 03/20/25 20:55 IMPRESSION: No definite acute fracture or hemorrhage. Laboratory Results WBC 7.87 10^3/uL (3.29-11.43) 03/20/25 19:53 RBC 6.21 10^6/uL (3.85-5.65) H 03/20/25 19:53 Hgb 15.80 g/dL (11.27-16.99) 03/20/25 19:53 Hct 50.4 % (36-47) H 03/20/25 19:53 MCV 81.2 fl (85-98) L 03/20/25 19:53 MCH 25.4 pg (27-33) L 03/20/25 19:53 MCHC 31.3 g/dL (30-55) 03/20/25 19:53 RDW 15.0 % (12.1-15.1) 03/20/25 19:53 Plt Count 166 10^3/cmm (157-399) 03/20/25 19:53 MPV 11.0 fL (7.4-10.4) H 03/20/25 19:53 Neut % (Auto) 44.7 % 03/20/25 19:53 Lymph % (Auto) 39.6 % 03/20/25 19:53 Miner % (Auto) 10.9 % 03/20/25 19:53 Eos % (Auto) 3.9 % 03/20/25 19:53 Baso % (Auto) 0.4 % 03/20/25 19:53 Neut # (Auto) 3.51 10^3/uL (1.8-7.7) 03/20/25 19:53 Lymph # (Auto) 3.1 10^3/uL (0.8-4.8) 03/20/25 19:53 Miner # (Auto) 0.9 10^3/uL (0.2-0.9) 03/20/25 19:53 Eos # (Auto) 0.3 10^3/uL (0.0-0.8) 03/20/25 19:53 Baso # (Auto) 0.0 10^3/uL (0.0-0.1) 03/20/25 19:53 Nucleated RBC % (auto) 0 % 03/20/25 19:53 Nucleated RBCs # 0.0 /100WBC 03/20/25 19:53 PT 12.70 SECONDS (12.1-14.9) 03/20/25 19:53 INR 0.89 (0.8-1.2) 03/20/25 19:53 APTT 26.0 SECONDS (23.9-36.7) 03/20/25 19:53 Sodium 138 mmol/L (136-145) 03/20/25 19:53 Potassium 3.5 mmol/L (3.5-5.1) 03/20/25 19:53 Chloride 101 mmol/L (98-107) 03/20/25 19:53 Carbon Dioxide 24 mmol/L (22-29) 03/20/25 19:53 Anion Gap 16.5 (5-19) 03/20/25 19:53 BUN 18 mg/dL (8-23) 03/20/25 19:53 Creatinine 0.8 mg/dL (0.5-0.9) 03/20/25 19:53 GFR Calculation Not Reportable 03/20/25 19:53 Glucose 138 mg/dL (65-115) H 03/20/25 19:53 POC Glucose 114 mg/dL (70-110) H 03/21/25 11:37 Calculated Osmolality 290 mOsm/kg (285-295) 03/20/25 19:53 Lactic Acid 1.5 mmol/L (0.5-2.2) 03/20/25 19:53 Calcium 9.8 mg/dL (8.5-10.5) 03/20/25 19:53 Total Bilirubin 0.3 mg/dL (0.15-1.2) 03/20/25 19:53 AST 53 U/L (0-32) H 03/20/25 19:53 ALT 60 U/L (0-33) H 03/20/25 19:53 Alkaline Phosphatase 115 U/L (35-105) H 03/20/25 19:53 Troponin T Baseline 11 ng/L (0-10) H 03/20/25 19:53 Troponin T 120 Minute 9.50 ng/L (0-10) 03/20/25 21:58 Delta Troponin T -1.50 ABS# (0-10) L 03/20/25 21:58 Troponin T Hi Sens 6Hr 11.84 ng/L (0-10) H 03/21/25 02:04 Troponin T Hi Sens 6Hr Delta 0.84 ng/L (0-12) 03/21/25 02:04 C-Reactive Protein 3.0 mg/L (0.0-4.9) 03/20/25 19:53 NT-Pro-B Natriuret Pep 216 pg/mL (0-450) 03/20/25 19:53 Total Protein 8.0 g/dL (6.6-8.7) 03/20/25 19:53 Albumin 4.6 g/dL (3.5-5.2) 03/20/25 19:53 Globulin 3.4 g/dL (1.3-4.6) 03/20/25 19:53 Procalcitonin 0.10 ng/mL (0-0.5) 03/20/25 19:53 Urine Color Yellow (Yellow) 03/20/25 23:18 Urine Appearance Clear (CLEAR) 03/20/25 23:18 Urine pH 8.0 (5-7) A 03/20/25 23:18 Ur Specific [place] 1.022 (1.005-1.030) 03/20/25 23:18 Urine Protein Negative (Negative) 03/20/25 23:18 Urine Glucose (UA) Trace (Normal) H 03/20/25 23:18 Urine Ketones 1+ (Negative) H 03/20/25 23:18 Urine Blood Negative (Negative) 03/20/25 23:18 Urine Nitrate Negative (Negative) 03/20/25 23:18 Urine Bilirubin Negative (Negative) 03/20/25 23:18 Urine Urobilinogen 0.2 mg/dL (Negative) 03/20/25 23:18 Ur Leukocyte Esterase Negative (Negative) 03/20/25 23:18 Urine RBC 0-2 /hpf (0-2) 03/20/25 23:18 Urine WBC 0-5 /hpf (0-5) 03/20/25 23:18 Ur Squamous Epith Cells 0-5 /hpf (0-5) 03/20/25 23:18 Amorphous Sediment Not Reportable 03/20/25 23:18 Urine Bacteria None seen /hpf (NONE) 03/20/25 23:18 Hyaline Casts 0-4 /lpf H 03/20/25 23:18 All radiology interpretation(s) finalized by discharge Discharge Plan Discharge Patient Disposition: Xfer Short-Term Hosp Clinical Impression: Closed fracture of right hip, Fall, New onset left bundle branch block (LBBB) Condition: Stable Referrals: Atilio Roldan DO [Primary Care Provider, [facility]] Print Language: Syrian Coding Level of Care Code ED Mobile Application Developer for Blanche Sal
--- NOTE | 2025-03-20 20:53 | PM.HP ---
Providers/Chief Complaint Primary Care Provider: Atilio Roldan DO Chief Complaint: fall , loc History of Present Illness Loree Read is a 79 year old female with a past medical history of type 2 diabetes mellitus, hypertension, hyperlipidemia, hypothyroidism, aortic stenosis, history of multiple back surgeries who presents [facility] due to dizziness and fall resulting in a right hip fracture. Currently patient is alert orient x 3, following all commands, is at bedside blood pressure 183/88, pulse is 90, respiratory rate 16, temperature 98.3, O2 sat 97% on 1 L. According to patient today she was getting some items out of the fridge, when all of a sudden she started feeling dizzy, unsteadiness on her feet, and she fell to the ground, she also tells me that throughout the day she has been noticing that her right leg has been numb, it has been weak, no right upper extremity weakness, no facial droop, no slurring of her words, she does not know the exact time she started noticing the weakness but potentially early in the morning 03/20/2025, denies any word finding difficulty, no visual deficits, no vertigo, no prior history of CVA. In the emergency room I was told by the ER physician that patient had a fall, and has a right hip fracture, reason for admission was for a right hip fracture, orthopedic service has been consulted I had a detailed discussion with patient and about her dizziness -Denies a prior history of dizziness -No chest pain -She does have aortic valve stenosis -She has not had a history of CAD or stent placement, but her heart doctors are in [place] and she would prefer to go down to [place] -Discussed findings on her EKG -EKG shows new onset left bundle branch block -I have ordered troponins, -She denies any chest pain -I have also ordered a cardiac echo -I would recommend cardiac stress testing for preoperative risk evaluation before her hip fracture given the new onset left bundle branch block, and her complaints of dizziness In terms of her dizziness, her right lower extremity numbness -Currently her NIH stroke scale is 0 -No facial droop, no slurring of words, no focal weakness -But it is hard to evaluate her right lower extremity given her right hip fracture -She does have good dorsal and plantar flexion, inversion, eversion, -Due to severe pain she cannot move past the right knee, and the right hip pain is primarily centered in the right hip -She has equal sensation bilateral lower extremity -Good DP PT pulses -No history of diabetic neuropathy -Discussed with patient my concerns for her complaints of dizziness and right lower extremity numbness -Concerns for sudden onset possible posterior circulation stroke? - Recommended CT of the head -Carotid artery ultrasound During my discussion, Loree and her , advised me that they would prefer to go down to [place], as her team, her cardiology team is in [place], and the physicians that she see are primarily about home. In addition they would prefer to see a orthopedics physician down in [place], rather than here at [facility], they expressed their preference to not have Dr. Mc operate on [facility] due to their differences. Discussed with patient and that we do have a good team here at [facility], that could optimally take care of her. However, Loree and prefer to go down to [place], discussed with him the risk and benefits, they voiced understanding, all question answered, they want to go ahead and proceed to be transferred from the emergency room. - Dr. Aviles had left for the night -I spoke to his partner , discussed case in detail, my concerns as above, family's request to be transferred to [facility] provider will work on transferring patient based on patient's request Medications/Allergies Home Medications ?Medication ?Instructions ?Recorded ?Confirmed ?Last Taken ?Type aspirin 81 mg tablet,delayed 81 mg PO DAILY 08/27/19 06/21/24 05/14/22 History release cetirizine 10 mg capsule (Allergy 10 mg PO DAILY 08/27/19 06/21/24 02/26/24 History Relief (cetirizine)) fluticasone propionate 50 1 spray intranasal BID 08/27/19 06/21/24 02/26/24 History mcg/actuation nasal spray,suspension (Flonase Allergy Relief) lysine 1,000 mg tablet 1,000 mg PO BID 08/27/19 06/21/24 02/26/24 History omeprazole magnesium 20 mg 20 mg PO DAILY 08/27/19 06/21/24 02/26/24 History tablet,delayed release multivitamin 1 tab PO DAILY 11/29/19 06/21/24 02/26/24 History magnesium 200 mg tablet 400 mg PO BID 05/14/20 06/21/24 02/26/24 History tramadol 50 mg tablet 50 mg PO Q6H PRN Pain #60 tabs 06/04/20 06/21/24 02/27/24 Rx meloxicam 15 mg tablet 15 mg PO DAILY 03/10/21 06/21/24 02/18/24 History omega-3 fatty acids 1,000 mg 1,000 mg PO BID 03/10/21 06/21/24 02/18/24 History capsule (Fish Oil Concentrate) methocarbamol 500 mg tablet 500 mg PO QID PRN Muscle Spasm #60 05/25/22 06/21/24 02/26/24 Rx tabs carvedilol 12.5 mg tablet 12.5 mg PO BID #180 tabs 11/04/23 06/21/24 02/27/24 Rx rosuvastatin 5 mg tablet (Crestor) 5 mg PO DAILY #90 tabs 11/04/23 06/21/24 02/26/24 Rx glipizide 5 mg tablet, extended 10 mg PO DAILY 02/01/24 06/21/24 02/26/24 History release 24 hr levothyroxine 100 mcg tablet 100 mcg PO DAILY 02/01/24 06/21/24 02/26/24 History (Synthroid) melatonin 10 mg capsule 10 mg PO DAILY 02/01/24 06/21/24 02/26/24 History amlodipine 5 mg tablet See Rx Instructions .Route 03/22/24 06/21/24 Unknown Rx .COMPLEX #90 tabs valsartan 160 See Rx Instructions .Route 05/02/24 06/21/24 Unknown Rx mg-hydrochlorothiazide 12.5 mg .COMPLEX #90 tabs tablet Allergies Allergy/AdvReac Type Severity Reaction Status Date / Time quinine Allergy Severe Unknown Verified 06/21/24 14:34 Quinidine-Quinine Analogues Allergy Unknown Unknown Verified 06/21/24 14:34 (Cincho (Quinidine-Quinine Analogues (Cinchona Alkaloids)) Sulfa (Sulfonamide AdvReac Intermediate ADR-Gastrointestinal Verified 06/21/24 14:34 Antibiotics) Upset PFSH Acute PFSH: Medical History Essential hypertension Aortic stenosis Arthritis of knee, right Right knee DJD Hyperthyroidism GERD (gastroesophageal reflux disease) Hypertension Right foot pain Guadarrama's neuroma of right foot Status post angiography of extremity Non-pressure chronic ulcer of other part of right foot with fat layer exposed PVD (peripheral vascular disease) Critical ischemia of foot Primary osteoarthritis of right knee Right total knee arthroplasty on May 20, 2020. Primary osteoarthritis of left knee Left total knee arthroplasty on September 18, 2019. 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, right History of peripheral arterial disease Social History Smoking and tobacco/nicotine status: never used tobacco/nicotine Alcohol intake: never Substance/Drug Use: never Current occupation: one step x 2 into house Vitals/I&O/Wt Last Vital Signs Temp 98.3 F 03/20/25 19:46 Pulse 90 03/20/25 20:12 Resp 16 03/20/25 20:23 BP 183/88 03/20/25 20:12 Pulse Ox 97 03/20/25 20:23 O2 Del Method Nasal Cannula 03/20/25 20:12 O2 Flow Rate 1 03/20/25 20:12 Weight last 48 hrs Weight 85.275 kg Physical Exam Const: COMMON NORMALS: no acute distress and patient oriented x3 HENMT: COMMON NORMALS: normocephalic HEAD & SCALP: normocephalic Eye: COMMON NORMALS: Equal, round and reactive pupils present Neck/C-Spine: COMMON NORMALS: no JVD Resp: COMMON NORMALS: normal respiratory effort, No retractions, No use of accessory muscles and clear to auscultation bilaterally AUSCULTATION: clear to auscultation bilaterally Cardio: COMMON NORMALS: regular rate, regular rhythm, S1 normal heart sound present and S2 normal heart sound present RATE: regular rate RHYTHM: regular rhythm HEART SOUNDS: S1 normal heart sound present and S2 normal heart sound present GI: COMMON NORMALS: Normal to inspection, nondistended, normoactive bowel sounds present, Soft to palpation and non-tender Extremity: COMMON NORMALS: no pedal edema Neuro: COMMON NORMALS: patient oriented x3, CN's II-XII intact bilaterally, moves all extremities and no sensory deficits noted Psych: COMMON NORMALS: mental status grossly normal Data 03/20/25 19:53 03/20/25 19:53 A&P Assessment and plan 1. LBBB (left bundle branch block): 2. Dizziness: 3. Right leg numbness: 4. Aortic stenosis: Plan: New onset left bundle branch block - Will await cardiology evaluation - Serial EKGs, serial troponins, telemetry monitoring - Cardiac echo - Stress testing will be required for preoperative evaluation Dizziness - Concerns for possible posterior circulation stroke? - Could be also related to patient's new onset left bundle branch block, - Other possibilities include aortic stenosis - Cardiac echo - Carotid ultrasound Aortic stenosis - Cardiac echo Transaminitis - Monitor Obtain urinalysis Right hip fracture XR/XR hip RT 2-3V wo/w pel* [id number] IMPRESSION: Fracture of the proximal femur with apex lateral angulation, minimal distraction. Plan - Dilaudid for pain control - Zofran for nausea Type 2 diabetes mellitus, low-dose sliding scale Full code Lovenox for DVT prophylaxis PDMP PDMP Reviewed: Not Reviewed Attestations Medical Necessity Statement*: Patient requires hospitalization for new onset left bundle branch block, dizziness, aortic stenosis, transaminitis, right hip fracture Diagnoses LBBB (left bundle branch block) I44.7 Dizziness R42 Right leg numbness R20.0 Aortic stenosis I35.0
--- NOTE | 2025-03-20 20:55 | CTR_ITS ---
PROCEDURE INFORMATION: Exam: CT Head Without Contrast Exam date and time: 03/20/2025 9:40 PM Age: 79 years old Clinical indication: Injury or trauma; Fall; Blunt trauma (contusions or hematomas); Without loss of consciousness; Additional info: Fall, dizziness TECHNIQUE: Imaging protocol: Computed tomography of the head without contrast. Radiation optimization: All CT scans at this facility use at least one of these dose optimization techniques: automated exposure control; mA and/or kV adjustment per patient size (includes targeted exams where dose is matched to clinical indication); or iterative reconstruction. COMPARISON: No relevant prior studies available. RADIATION DOSE METRICS: Total DLP (mGy-cm): 1121.78 FINDINGS: Brain: Chronic small-vessel ischemic change. Cerebral ventricles: Moderate involutional changes of the ventricles and sulci. Paranasal sinuses: Opacification of the left frontal and ethmoid sinuses as well as polypoid thickening of the superior nasal cavity. Mastoid air cells: Visualized mastoid air cells are well aerated. Bones: Unremarkable. No acute fracture. Soft tissues: Unremarkable. Other findings: Few lacunar foci, nonspecific although commonly chronic. CT/CT head wo con* [id number] IMPRESSION: No definite acute fracture or hemorrhage.
[2025-03-20 20:56] LABS: Troponin(5th) Baseline 11 ng/L (0-10)
--- NOTE | 2025-03-20 20:59 | USCV_ITS ---
Loree Reda Age: 79 Gender: F : 1945 Exam Date: 03/20/2025 22:09 Ordering Phys: Shiv Lau MD Technologist: SILVANO [place] [facility] [place]: [place]iness Risk Factors: unknown Previous Vascular Surgery: unknown Right Brachial BP: 183 / 88 Left Brachial BP: / Right Left Velocity (cm/s) Spectral Plaque Velocity (cm/s) Spectral Plaque Syst/Diast Broadening Syst/Diast Broadening 67.20/ 8.90 None None Prox CCA 75.30 / 11.70 None None 42.60/ 10.20 Min Homo Mid CCA 53.80 / 8.50 Min Hetro 72.40/ 11.50 Min Homo Distal CCA 66.20 / 11.90 Min Homo 71.30/ 10.00 Min Hetro Prox ICA 50.60 / 13.10 Min Say 63.30/ 17.20 Min Homo Mid ICA 69.90 / 17.60 Min Homo 49.20/ 9.60 Min Homo Distal ICA 68.10 / 16.80 Min Homo 178.40 None Hetro ECA 47.60 Min Hetro 1.00 ICA/CCA 1.10 Antegrade Vertebral Antegrade 32.00/ 8.60 cm/s 42.20/ 8.40 cm/s Tri Subclavian Tri 66.60 101.5 0 FINDINGS Comparison:. /02/04 No significant elevation of systolic or diastolic velocities. Waveforms are normal. Minimal bilateral, plaque with no elevation of velocity. Antegrade vertebral arteries. CONCLUSIONS Bilateral ICA stenosis less than 50%. Mild carotid atherosclerosis. Dr. Guillermina Gomez DO (Electronically Signed) Final Date: 21 March 2025 11:43 S
[2025-03-20 21:38] LABS: Lactic Sepsis W/Reflex 1.5 mmol/L (0.5-2.2)
[2025-03-20 21:42] LABS: Partial Thromboplastin Time 26.0 SECONDS (23.9-36.7)
[2025-03-20 21:46] LABS: NT Pro B Type Natriuretic Pept 216 pg/mL (0-450); Procalcitonin 0.10 ng/mL (0-0.5)
--- NOTE | 2025-03-20 22:29 | ECG_ITS ---
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
[2025-03-20 22:43] LABS: Troponin 5 2HR 9.50 ng/L (0-10)
[2025-03-20 22:44] LABS: Troponin 5 2HR Delta -1.50 ABS# (0-10)
[2025-03-20 23:04] VITALS: BP 107/70; PULSE 71; O2SAT 94
[2025-03-20 23:30] LABS: Glucose Urine UA Trace (Normal); Nitrate Urine Negative (Negative); Specific Gravity, Urine 1.022 (1.005-1.030)
[2025-03-20 23:35] LABS: Add Urine Microscopic? YES
[2025-03-21] VITALS (12 sets, daily range): BP systolic 146–158; BP diastolic 75–107; PULSE 74–93; RESP 16; O2SAT 92–95
[2025-03-21 02:34] LABS: Troponin 5 6HR 11.84 ng/L (0-10); Troponin 5 6HR Delta 0.84 ng/L (0-12)
--- NOTE | 2025-03-21 03:19 | ECG_ITS ---
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
[2025-03-21] MEDS: HYDROmorphone 0.5 MG/0.5 ML INJ IVP ×4 (03:54→14:29)
--- NOTE | 2025-03-21 17:44 | PM.TDS ---
Transfer Summary Providers Date of Discharge/Transfer: 03/21/25 Primary Care Provider: Atilio Roldan DO Transfer Plans: Anticipated date of transfer: 03/21/25. Receiving Facility: [facility]. Diagnoses at Discharge Discharge Diagnosis 1. LBBB (left bundle branch block): 2. Dizziness: 3. Right leg numbness: 4. Nonrheumatic aortic valve stenosis: 5. Closed fracture of right hip: Reason for Visit Reason for Visit fall , loc Hospital Course Hospital Course 79 year old female with a past medical history of type 2 diabetes mellitus, hypertension, hyperlipidemia, hypothyroidism, aortic stenosis, history of multiple back surgeries who presents [facility] due to dizziness and fall resulting in a right hip fracture.she was getting some items out of the fridge, when all of a sudden she started feeling dizzy, unsteadiness on her feet, and she fell to the ground, she also tells me that throughout the day she has been noticing that her right leg has been numb. CT of the head was without any evidence of fracture or hemorrhage. No acute intracranial events were encountered. Chronic moderate involutional changes of the ventricles and sulci were noted. Carotid Doppler did not show any significant stenosis bilaterally. Stroke was considered unlikely. NIH stroke scale was 0. Patient was recommended to undergo orthopedic evaluation and surgical fixation for her proximal femoral fracture however patient stated that she wished to be transferred to [facility] where her usual physicians are practicing. IN spite of counseling with regards to benefits of early fracture fixation, she declined to be operated at [facility] and wish to be transferred.no signs of compartment syndrome or distal vascular deficits. Pain control was optimized with hydrocodone and Toradol. Her usual home medications of aspirin, carvedilol, levothyroxine, paroxetine and rosuvastatin were continued. She was transferred to [facility] today in stable condition. Physical Exam Narrative: General: No acute distress, AO x3 HEENT: PERRLA, pupils bilaterally equal and reactive, pallors not present Chest: Normal vesicular breath sounds, no added sounds, equal good air entry bilaterally CVS: S1-S2 regular, no murmurs, no tachycardia, no gallops, no rubs Abdomen: Soft, nontender, no organomegaly, bowel sounds present Neuro: No focal deficits, no facial deformity, AO x3 TS Data Studies Completed and Pending Completed Studies During Hospitalization Category Date Time Status CT head wo con* [id number] Stat Cat Scan 03/20/25 20:55 Completed XR chest 1V portable [id number] Stat Exams 03/20/25 19:46 Completed XR hip RT 2-3V wo/w pel* [id number] Stat Exams 03/20/25 19:46 Completed CV carotid duplex BI* [id number] Stat Ultrasound 03/20/25 20:59 Completed CV. echo complete* [id number] Stat Ultrasound 03/20/25 20:31 Completed Laboratory Last Values WBC 7.87 10^3/uL (3.29-11.43) 03/20/25 19:53 RBC 6.21 10^6/uL (3.85-5.65) H 03/20/25 19:53 Hgb 15.80 g/dL (11.27-16.99) 03/20/25 19:53 Hct 50.4 % (36-47) H 03/20/25 19:53 MCV 81.2 fl (85-98) L 03/20/25 19:53 MCH 25.4 pg (27-33) L 03/20/25 19:53 MCHC 31.3 g/dL (30-55) 03/20/25 19:53 RDW 15.0 % (12.1-15.1) 03/20/25 19:53 Plt Count 166 10^3/cmm (157-399) 03/20/25 19:53 MPV 11.0 fL (7.4-10.4) H 03/20/25 19:53 Neut % (Auto) 44.7 % 03/20/25 19:53 Lymph % (Auto) 39.6 % 03/20/25 19:53 Nance % (Auto) 10.9 % 03/20/25 19:53 Eos % (Auto) 3.9 % 03/20/25 19:53 Baso % (Auto) 0.4 % 03/20/25 19:53 Neut # (Auto) 3.51 10^3/uL (1.8-7.7) 03/20/25 19:53 Lymph # (Auto) 3.1 10^3/uL (0.8-4.8) 03/20/25 19:53 Nance # (Auto) 0.9 10^3/uL (0.2-0.9) 03/20/25 19:53 Eos # (Auto) 0.3 10^3/uL (0.0-0.8) 03/20/25 19:53 Baso # (Auto) 0.0 10^3/uL (0.0-0.1) 03/20/25 19:53 Nucleated RBC % (auto) 0 % 03/20/25 19:53 Nucleated RBCs # 0.0 /100WBC 03/20/25 19:53 PT 12.70 SECONDS (12.1-14.9) 03/20/25 19:53 INR 0.89 (0.8-1.2) 03/20/25 19:53 APTT 26.0 SECONDS (23.9-36.7) 03/20/25 19:53 Sodium 138 mmol/L (136-145) 03/20/25 19:53 Potassium 3.5 mmol/L (3.5-5.1) 03/20/25 19:53 Chloride 101 mmol/L (98-107) 03/20/25 19:53 Carbon Dioxide 24 mmol/L (22-29) 03/20/25 19:53 Anion Gap 16.5 (5-19) 03/20/25 19:53 BUN 18 mg/dL (8-23) 03/20/25 19:53 Creatinine 0.8 mg/dL (0.5-0.9) 03/20/25 19:53 GFR Calculation Not Reportable 03/20/25 19:53 Glucose 138 mg/dL (65-115) H 03/20/25 19:53 POC Glucose 114 mg/dL (70-110) H 03/21/25 11:37 Calculated Osmolality 290 mOsm/kg (285-295) 03/20/25 19:53 Lactic Acid 1.5 mmol/L (0.5-2.2) 03/20/25 19:53 Calcium 9.8 mg/dL (8.5-10.5) 03/20/25 19:53 Total Bilirubin 0.3 mg/dL (0.15-1.2) 03/20/25 19:53 AST 53 U/L (0-32) H 03/20/25 19:53 ALT 60 U/L (0-33) H 03/20/25 19:53 Alkaline Phosphatase 115 U/L (35-105) H 03/20/25 19:53 Troponin T Baseline 11 ng/L (0-10) H 03/20/25 19:53 Troponin T 120 Minute 9.50 ng/L (0-10) 03/20/25 21:58 Delta Troponin T -1.50 ABS# (0-10) L 03/20/25 21:58 Troponin T Hi Sens 6Hr 11.84 ng/L (0-10) H 03/21/25 02:04 Troponin T Hi Sens 6Hr Delta 0.84 ng/L (0-12) 03/21/25 02:04 C-Reactive Protein 3.0 mg/L (0.0-4.9) 03/20/25 19:53 NT-Pro-B Natriuret Pep 216 pg/mL (0-450) 03/20/25 19:53 Total Protein 8.0 g/dL (6.6-8.7) 03/20/25 19:53 Albumin 4.6 g/dL (3.5-5.2) 03/20/25 19:53 Globulin 3.4 g/dL (1.3-4.6) 03/20/25 19:53 Procalcitonin 0.10 ng/mL (0-0.5) 03/20/25 19:53 Urine Color Yellow (Yellow) 03/20/25 23:18 Urine Appearance Clear (CLEAR) 03/20/25 23:18 Urine pH 8.0 (5-7) A 03/20/25 23:18 Ur Specific [place] 1.022 (1.005-1.030) 03/20/25 23:18 Urine Protein Negative (Negative) 03/20/25 23:18 Urine Glucose (UA) Trace (Normal) H 03/20/25 23:18 Urine Ketones 1+ (Negative) H 03/20/25 23:18 Urine Blood Negative (Negative) 03/20/25 23:18 Urine Nitrate Negative (Negative) 03/20/25 23:18 Urine Bilirubin Negative (Negative) 03/20/25 23:18 Urine Urobilinogen 0.2 mg/dL (Negative) 03/20/25 23:18 Ur Leukocyte Esterase Negative (Negative) 03/20/25 23:18 Urine RBC 0-2 /hpf (0-2) 03/20/25 23:18 Urine WBC 0-5 /hpf (0-5) 03/20/25 23:18 Ur Squamous Epith Cells 0-5 /hpf (0-5) 03/20/25 23:18 Amorphous Sediment Not Reportable 03/20/25 23:18 Urine Bacteria None seen /hpf (NONE) 03/20/25 23:18 Hyaline Casts 0-4 /lpf H 03/20/25 23:18 Radiology Impressions Chest X-Ray 03/20/25 19:46 IMPRESSION: No definite acute fracture. No pneumothorax or definite pulmonary contusion. Hip/Pelvis X-Ray 03/20/25 19:46 IMPRESSION: Fracture of the proximal femur with apex lateral angulation, minimal distraction. Head CT 03/20/25 20:55 IMPRESSION: No definite acute fracture or hemorrhage. Recent Clincial Data Last Vital Signs Temp 98.3 F 03/20/25 19:46 Pulse 88 03/21/25 16:50 Resp 16 03/21/25 10:00 BP 155/86 03/21/25 16:50 Pulse Ox 94 03/21/25 16:50 O2 Del Method Nasal Cannula 03/21/25 16:18 O2 Flow Rate 4 03/21/25 16:18 Vital Signs Pulse Resp BP Pulse Ox O2 Del Method O2 Flow Rate 03/21/25 16:50 88 155/86 94 03/21/25 16:18 88 155/96 93 Nasal Cannula 4 03/21/25 14:33 87 150/85 93 Nasal Cannula 4 03/21/25 11:38 89 158/84 94 Nasal Cannula 4 03/21/25 10:34 88 153/80 92 Nasal Cannula 3 03/21/25 10:00 86 16 148/107 95 Room Air 03/21/25 08:45 86 16 149/86 92 Nasal Cannula 3 03/21/25 08:09 87 16 146/77 93 Nasal Cannula 3 03/21/25 06:00 74 16 150/75 Nasal Cannula 2 Intake & Output/Weight 03/19/25 03/20/25 03/21/25 03/22/25 06:59 06:59 06:59 06:59 Output Total 200 / 200 Balance -200 / -200 Weight 85.275 kg Vitals Last Vital Signs Temp 98.3 F 03/20/25 19:46 Pulse 88 03/21/25 16:50 Resp 16 03/21/25 10:00 BP 155/86 03/21/25 16:50 Pulse Ox 94 03/21/25 16:50 O2 Del Method Nasal Cannula 03/21/25 16:18 O2 Flow Rate 4 03/21/25 16:18 TS Medications Medications Discontinued Medications Aspirin (Aspirin 81 Mg Ec Tablet) 81 mg PO DAILY [facility] Last Admin: 03/21/25 08:29 Dose: 81 mg Glucagon (Glucagon 1 Mg/Ml Kit 1 Ml) 1 mg IM ONCE PRN; Protocol PRN Reason: Adult Acute Hypoglycemia Nursing Prot. Hydromorphone HCl (Hydromorphone 0.5 Mg/0.5 Ml Inj) 0.5 mg IVP Q4H PRN PRN Reason: severe pain Last Admin: 03/21/25 11:32 Dose: 0.5 mg Hydromorphone HCl (Hydromorphone 0.5 Mg/0.5 Ml Inj) 0.5 mg IVP Q3H PRN PRN Reason: severe pain Last Admin: 03/21/25 14:29 Dose: 0.5 mg Dextrose (D5w) 500 mls @ 0 mls/hr IV ONCE PRN; Protocol PRN Reason: Adult Acute Hypoglycemia Prot Dextrose (D10w) 125 mls @ 750 mls/hr IV PRN PRN; Protocol PRN Reason: Adult Acute Hypoglycemia Nursing Protocol Dextrose (D10w) 250 mls @ 1,000 mls/hr IV PRN PRN; Protocol PRN Reason: Adult Acute Hypoglycemia Nursing Protocol Insulin Human Lispro (Insulin Lispro 100 Unit/1 Ml) 0 unit SUBCUT TIDWM [facility]; Protocol Last Admin: 03/21/25 11:38 Dose: Not Given Ketorolac Tromethamine (Ketorolac 30 Mg/Ml Inj) 15 mg IVP Q6H PRN PRN Reason: MODERATE PAIN Stop: 03/26/25 12:02 Last Admin: 03/21/25 14:26 Dose: 15 mg Morphine Sulfate (Morphine 4 Mg/Ml Sdv 1 Ml) 4 mg IVP ONCE ONE Stop: 03/20/25 19:53 Last Admin: 03/20/25 20:23 Dose: 4 mg Ondansetron HCl (Ondansetron 2 Mg/Ml Sdv 2 Ml) 4 mg IVP ONCE ONE Stop: 03/20/25 19:53 Last Admin: 03/20/25 20:23 Dose: 4 mg Allergies quinine Allergy (Severe, Verified 06/21/24 14:34) Unknown platlet reaction Quinidine-Quinine Analogues (Cincho (Quinidine-Quinine Analogues ([place]ona Alkaloids)) Allergy (Unknown, Verified 06/21/24 14:34) Unknown Thrombocytopenia Sulfa (Sulfonamide Antibiotics) Adverse Reaction (Intermediate, Verified 06/21/24 14:34) ADR-Gastrointestinal Upset Home Medications aspirin 81 mg tablet,delayed release 81 mg PO DAILY 08/27/19 [History Confirmed 03/21/25] cetirizine 10 mg capsule (Allergy Relief (cetirizine)) 10 mg PO DAILY 08/27/19 [History Confirmed 03/21/25] fluticasone propionate 50 mcg/actuation nasal spray,suspension (Flonase Allergy Relief) 1 spray intranasal BID 08/27/19 [History Confirmed 03/21/25] lysine 1,000 mg tablet 1,000 mg PO BID 08/27/19 [History Confirmed 03/21/25] multivitamin 1 tab PO DAILY 11/29/19 [History Confirmed 03/21/25] magnesium 200 mg tablet 400 mg PO BID 05/14/20 [History Confirmed 03/21/25] tramadol 50 mg tablet 50 mg PO Q6H PRN Pain #60 tabs 06/04/20 [Rx Confirmed 03/21/25] meloxicam 15 mg tablet 15 mg PO DAILY 03/10/21 [History Confirmed 03/21/25] carvedilol 12.5 mg tablet 12.5 mg PO BID #180 tabs 11/04/23 [Rx Confirmed 03/21/25] rosuvastatin 5 mg tablet (Crestor) 5 mg PO DAILY #90 tabs 11/04/23 [Rx Confirmed 03/21/25] levothyroxine 100 mcg tablet (Synthroid) 100 mcg PO DAILY 02/01/24 [History Confirmed 03/21/25] melatonin 10 mg capsule 10 mg PO DAILY 02/01/24 [History Confirmed 03/21/25] valsartan 160 mg-hydrochlorothiazide 12.5 mg tablet See Rx Instructions .Route .COMPLEX #90 tabs 05/02/24 [Rx Confirmed 03/21/25] amlodipine 10 mg tablet 10 mg PO DAILY 03/21/25 [History Confirmed 03/21/25] omega 2-cxz-zbg-fish oil 900 mg-1,400 mg capsule,delayed release 1 cap PO DAILY 03/21/25 [History Confirmed 03/21/25] pantoprazole 40 mg tablet,delayed release See Rx Instructions .Route .COMPLEX 03/21/25 [History Confirmed 03/21/25] paroxetine HCl 10 mg tablet 10 mg PO DAILY 03/21/25 [History Confirmed 03/21/25] Discharge Plan Discharge Patient Disposition: Xfer Short-Term Hosp Clinical Impression: Closed fracture of right hip, Fall, New onset left bundle branch block (LBBB) Condition: Stable Referrals: Atilio Roldan DO [Primary Care Provider, [facility]] Print Language: Occitan Transfer Attestations Time Spent in Transfer Care: greater than 30 min Status at Transfer: Cognitive status at transfer: cognitively intact; Behavioral status at transfer: cooperative; Quality Metrics Clinical Quality Measures [ No reported AMI, CVA or VTE this stay] Coding Level of Care Code Acute Code for Chg Fwd Diagnoses LBBB (left bundle branch block) I44.7 Dizziness R42 Right leg numbness R20.0 Nonrheumatic aortic valve stenosis I35.0 Cardiac valve disease etiology: nonrheumatic Closed fracture of right hip S72.001A
== END 2025-03-21 16:51 | disposition short-term general hospital (02) ==
PROVIDERS: Family Medicine; Emergency Provider Emergency Medicine; PCP Electrodiagnostic Medicine
DX: S72.001A Fracture of unspecified part of neck of right femur, initial encounter for closed fracture (principal); I44.7 Left bundle-branch block, unspecified; W19.XXXA Unspecified fall, initial encounter
CPT/HCPCS: 36415; 36416; 70450; 71045; 73502; 80053; 81001; 82962; 83605; 83880; 84145; 84484; 85025; 85610; 85730; 86140; 93005; 93306; 93880; 96374; 96375; 96376; 99285; J1171; J1885; J2270; J2405; J9999

== ENCOUNTER → 2025-05-22 12:39 | Outpatient (BNVA) | payer MEDICARE, SELFPAY | PROVIDERS: PCP Electrodiagnostic Medicine; Visit Provider Thoracic Surgery (Cardiothoracic Vascular Surgery) | DX: I96 Gangrene, not elsewhere classified (principal); T81.31XD Disruption of external operation (surgical) wound, not elsewhere classified, subsequent encounter; Y83.8 Other surgical procedures as the cause of abnormal reaction of the patient, or of later complication, without mention of misadventure at the time of the procedure | CPT/HCPCS: 97597; A6212 ==

== ENCOUNTER → 2025-05-24 09:34 | Outpatient (BNVA) | payer MEDICARE, SELFPAY | PROVIDERS: PCP Electrodiagnostic Medicine; Visit Provider Family Medicine Adult Medicine | DX: R32 Unspecified urinary incontinence (principal) | CPT/HCPCS: 81000 ==

== ENCOUNTER → 2025-05-29 12:55 | Outpatient (BNVA) | payer MEDICARE, SELFPAY | PROVIDERS: PCP Electrodiagnostic Medicine; Visit Provider Thoracic Surgery (Cardiothoracic Vascular Surgery) | DX: I96 Gangrene, not elsewhere classified (principal); T81.31XD Disruption of external operation (surgical) wound, not elsewhere classified, subsequent encounter; Y83.8 Other surgical procedures as the cause of abnormal reaction of the patient, or of later complication, without mention of misadventure at the time of the procedure | CPT/HCPCS: 97597; A6021; A6212 ==

== ENCOUNTER → 2025-06-11 12:58 | Outpatient (BNVA) | payer MEDICARE, SELFPAY | PROVIDERS: PCP Electrodiagnostic Medicine; Visit Provider Thoracic Surgery (Cardiothoracic Vascular Surgery) | DX: I96 Gangrene, not elsewhere classified (principal); T81.31XD Disruption of external operation (surgical) wound, not elsewhere classified, subsequent encounter; Y83.8 Other surgical procedures as the cause of abnormal reaction of the patient, or of later complication, without mention of misadventure at the time of the procedure | CPT/HCPCS: 97597; A6021; A6212 ==

== ENCOUNTER → 2025-06-27 12:42 | Outpatient (BNVA) | payer MEDICARE, SELFPAY | PROVIDERS: PCP Electrodiagnostic Medicine; Visit Provider Thoracic Surgery (Cardiothoracic Vascular Surgery) | DX: Z09 Encounter for follow-up examination after completed treatment for conditions other than malignant neoplasm (principal); Z87.2 Personal history of diseases of the skin and subcutaneous tissue | CPT/HCPCS: 99212; A6212 ==